=== PATIENT | female | born 1955 | race Caucasian/White ===

== ENCOUNTER 2021-02-27 13:31 | Inpatient (IN) ==
[2021-02-27] MEDS ORDERED: IOPAMIDOL 100 ML BOTTLE IV ONE ×2 (13:32→21:02)
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
[2021-02-27] MEDS ORDERED: 0.9 % SODIUM CHLORIDE 1,000 ML IV ONE ×2 (14:15→17:05)
[2021-02-27 14:45] LABS: Hematocrit 36.1 % (34.1-44.9); Hemoglobin 11.7 g/dL (11.2-15.7); Mean Cell Volume 92.3 fL (80.0-100.0); Mean Corpuscular HGB Conc 32.4 g/dL (31.0-36.0); Mean Platelet Volume 11.9 fL (7.4-10.4); Platelet Count 166 K/mcL (140-440); RBC 3.91 M/mcL (3.59-5.38); Red Cell Distribution Width 15.4 % (11.5-14.5); WBC 23.5 K/mcL (4.5-11.0)
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
[2021-02-27] MEDS ORDERED: HYDROCODONE/APAP 7.5/325MG TABLET PO ONE (15:00)
[2021-02-27] MEDS ORDERED: cefTRIAXone 1 GM VIAL IV ONE (15:01)
[2021-02-27 15:03] LABS: ALT/SGPT 25 U/L (<40); AST/SGOT 12 U/L (<32); Albumin 3.7 gm/dL (3.2-5.2); Albumin/Globulin Ratio 1.1 (1.0-2.3); Alkaline Phosphatase 207 U/L (39-117); Bilirubin,Total 1.1 mg/dL (0.1-1.0); Blood Urea Nitrogen 9 mg/dL (8-23); Calcium 9.3 mg/dL (8.6-10.4); Carbon Dioxide 19 mmol/L (22-30); Chloride 103 mmol/L (96-108); Globulin 3.3 gm/dL (2.2-3.7); Glomerular Filtration Rate 77; Glucose 227 mg/dL (70-105)
[2021-02-27] MEDS ORDERED: AZITHROMYCIN 500 MG in DEXTROSE 5% IN WATER 250 ML IV ONE (15:03)
[2021-02-27 15:40] LABS: Appearance,Urine CLEAR (Clear); Bilirubin,Urine Negative (Negative); Color,Urine YELLOW; Culture Indicated,Urine No; Glucose,Urine (UA) >=500 mg/dL (Negative); Ketones,Urine Negative (Negative); Leukocyte Esterase,Urine 75 /uL (Negative); Nitrate,Urine Negative (Negative); Protein,Urine Negative (Negative); Specific Gravity,Urine 1.017 (1.000-1.035); Urine Blood Negative (Negative); Urine RBC 1 /hpf (0-3); Urine Squamous Epithelial Cell 0 /hpf (0-4); Urine WBC 8 /hpf (0-4)
[2021-02-27 15:58] LABS: Anisocytosis 1+ (None Seen); Lymphocytes % 6 % (15-49); Monocytes % (Manual) 5 % (1-12); Platelet Estimate NORMAL (Normal); Polychromasia 1+ (None Seen); RBC Morphology ABNORMAL (Normal); Segmented Neutrophils % 89 % (38-78)
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
[2021-02-27] MEDS ORDERED: morphine 4 MG/ML VIAL IV PRN (21:02)
[2021-02-27] MEDS ORDERED: cefTRIAXone 1 GM in DEXTROSE 5% IN WATER 50 ML IV SCH (21:02)
[2021-02-27] MEDS ORDERED: DOCUSATE SODIUM 100 MG CAPSULE PO SCH (21:02)
[2021-02-27] MEDS ORDERED: DEXTROSE 31 GM ORAL.SUSP PO PRN (21:02)
[2021-02-27] MEDS ORDERED: LOVASTATIN 20 MG PO SCH (21:02)
[2021-02-27] MEDS ORDERED: ONDANSETRON 4 MG/2 ML VIAL IV PRN (21:02)
[2021-02-27] MEDS ORDERED: DEXTROSE 50% 50 ML VIAL IV PRN (21:02)
[2021-02-27] MEDS ORDERED: ACETAMINOPHEN 325 MG TABLET PO PRN (21:02)
[2021-02-27] MEDS ORDERED: HYDROcodone/APAP 10/325MG TABLET PO PRN (21:02)
[2021-02-27] MEDS ORDERED: IPRATROPIUM/ALBUTEROL 3 ML AMPUL.NEB NEB PRN (21:02)
[2021-02-27] MEDS: SENNOSIDES 1 TABLET PO SCH (21:37)
[2021-02-27] MEDS: DOCUSATE SODIUM 100 MG CAPSULE PO SCH (21:37)
[2021-02-27] MEDS: CYCLOBENZAPRINE 10 MG TABLET PO SCH (21:45)
[2021-02-27] MEDS: GABAPENTIN 300 MG CAPSULE PO SCH (21:46)
[2021-02-27] MEDS: ZOLPIDEM 5 MG TABLET PO SCH (21:46)
[2021-02-27] MEDS: SIMVASTATIN 10 MG TABLET PO SCH (21:46)
[2021-02-27] MEDS: HYDROcodone/APAP 10/325MG TABLET PO PRN (21:47)
[2021-02-27] MEDS: 0.9 % SODIUM CHLORIDE 1,000 ML IV SCH (21:50)
[2021-02-27] MEDS: 0.9 % SODIUM CHLORIDE 10 ML SYRINGE IV SCH (21:50)
[2021-02-27] MEDS: INSULIN LISPRO 1 UNIT/0.01 ML UNIT SQ SCH (21:50)
[2021-02-27 23:03] LABS: Estimated Average Glucose(eAG) 151 mg/dL; Hemoglobin A1C 6.9 % Hgb (4.0-6.0)
[2021-02-28] MEDS: 0.9 % SODIUM CHLORIDE 10 ML SYRINGE IV SCH ×3 (05:30→20:58)
[2021-02-28 06:40] LABS: Basophils # (Auto) 0.05 K/mcL (0.00-0.30); Basophils % (Auto) 0.3 % (0.0-2.0); Eosinophils # (Auto) 0.17 K/mcL (0.00-0.70); Eosinophils % (Auto) 1.1 % (0.0-7.0); Hematocrit 33.5 % (34.1-44.9); Hemoglobin 10.1 g/dL (11.2-15.7); Lymphocytes # (Auto) 0.74 K/mcL (1.50-4.80); Lymphocytes % (Auto) 4.9 % (15.5-49.0); Mean Cell Volume 97.7 fL (80.0-100.0); Mean Corpuscular HGB Conc 30.1 g/dL (31.0-36.0); Mean Platelet Volume 11.9 fL (7.4-10.4); Monocytes # (Auto) 0.78 K/mcL (0.10-0.90); Monocytes % (Auto) 5.1 % (1.0-12.0); Neutrophils % (Auto) 88.6 % (38.0-78.0); Platelet Count 147 K/mcL (140-440); RBC 3.43 M/mcL (3.59-5.38); WBC 15.2 K/mcL (4.5-11.0)
[2021-02-28 07:05] LABS: ALT/SGPT 17 U/L (<40); AST/SGOT 10 U/L (<32); Alkaline Phosphatase 224 U/L (39-117); Bilirubin,Total 0.6 mg/dL (0.1-1.0); Blood Urea Nitrogen 12 mg/dL (8-23); Calcium 8.3 mg/dL (8.6-10.4); Carbon Dioxide 19 mmol/L (22-30); Chloride 108 mmol/L (96-108); Globulin 3.1 gm/dL (2.2-3.7); Glomerular Filtration Rate 91; Glucose 152 mg/dL (70-105)
--- NOTE | 2021-02-28 07:17 | EKG ---
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
[2021-02-28] MEDS: INSULIN LISPRO 1 UNIT/0.01 ML UNIT SQ SCH ×4 (08:16→20:56)
[2021-02-28] MEDS ORDERED: METOPROLOL SUCCINATE 50 MG TAB.XL.24H PO SCH (09:00)
[2021-02-28] MEDS: HYDROcodone/APAP 10/325MG TABLET PO PRN ×2 (09:32→17:29)
[2021-02-28] MEDS: 0.9 % SODIUM CHLORIDE 1,000 ML IV SCH ×3 (09:35→18:39)
[2021-02-28] MEDS: CYCLOBENZAPRINE 10 MG TABLET PO SCH ×3 (09:36→20:54)
[2021-02-28] MEDS: DOCUSATE SODIUM 100 MG CAPSULE PO SCH ×2 (09:37→20:53)
[2021-02-28] MEDS: FUROSEMIDE 20 MG TABLET PO SCH (09:37)
[2021-02-28] MEDS: MELOXICAM 7.5 MG TABLET PO SCH (09:38)
[2021-02-28] MEDS: busPIRone 15 MG TABLET PO SCH (09:38)
[2021-02-28] MEDS: DULoxetine 30 MG CAPSULE PO SCH (09:39)
[2021-02-28] MEDS: GABAPENTIN 300 MG CAPSULE PO SCH ×3 (09:39→20:54)
[2021-02-28] MEDS: ENOXAPARIN 40 MG/0.4 ML SYRINGE SQ SCH (09:40)
[2021-02-28] MEDS: cefTRIAXone 1 GM VIAL IV SCH (10:15)
[2021-02-28] MEDS: AZITHROMYCIN 500 MG in DEXTROSE 5% IN WATER 250 ML IV SCH (10:15)
[2021-02-28] MEDS ORDERED: METOPROLOL SUCCINATE 50 MG TAB.XL.24H PO ONE (11:56)
[2021-02-28] MEDS ORDERED: METOPROLOL TARTRATE 5 MG/5 ML VIAL IV PRN (11:57)
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
[2021-02-28] MEDS: guaiFENesin/DEXTROMETHORPHAN ORAL SOL PO PRN (12:54)
[2021-02-28] MEDS: SENNOSIDES 1 TABLET PO SCH (20:53)
[2021-02-28] MEDS: SIMVASTATIN 10 MG TABLET PO SCH (20:55)
[2021-02-28] MEDS: ZOLPIDEM 5 MG TABLET PO SCH (20:55)
[2021-03-01] MEDS: 0.9 % SODIUM CHLORIDE 1,000 ML IV SCH (01:14)
[2021-03-01] MEDS: 0.9 % SODIUM CHLORIDE 10 ML SYRINGE IV SCH ×3 (04:03→20:45)
[2021-03-01 06:56] LABS: Basophils # (Auto) 0.06 K/mcL (0.00-0.30); Basophils % (Auto) 0.5 % (0.0-2.0); Eosinophils # (Auto) 0.22 K/mcL (0.00-0.70); Eosinophils % (Auto) 1.8 % (0.0-7.0); Hematocrit 32.2 % (34.1-44.9); Hemoglobin 9.5 g/dL (11.2-15.7); Lymphocytes # (Auto) 0.88 K/mcL (1.50-4.80); Lymphocytes % (Auto) 7.1 % (15.5-49.0); Mean Cell Volume 98.5 fL (80.0-100.0); Mean Corpuscular HGB Conc 29.5 g/dL (31.0-36.0); Mean Platelet Volume 11.8 fL (7.4-10.4); Monocytes % (Auto) 6.5 % (1.0-12.0); Neutrophils % (Auto) 84.1 % (38.0-78.0); Platelet Count 168 K/mcL (140-440); RBC 3.27 M/mcL (3.59-5.38); Red Cell Distribution Width 15.7 % (11.5-14.5); WBC 12.3 K/mcL (4.5-11.0)
[2021-03-01 07:16] LABS: ALT/SGPT 15 U/L (<40); AST/SGOT 14 U/L (<32); Albumin/Globulin Ratio 0.9 (1.0-2.3); Alkaline Phosphatase 176 U/L (39-117); Bilirubin,Total 0.3 mg/dL (0.1-1.0); Blood Urea Nitrogen 11 mg/dL (8-23); Calcium 8.4 mg/dL (8.6-10.4); Carbon Dioxide 19 mmol/L (22-30); Chloride 103 mmol/L (96-108); Globulin 3.3 gm/dL (2.2-3.7); Glomerular Filtration Rate 77; Glucose 161 mg/dL (70-105)
[2021-03-01] MEDS: INSULIN LISPRO 1 UNIT/0.01 ML UNIT SQ SCH ×4 (07:32→20:56)
[2021-03-01] MEDS: HYDROcodone/APAP 10/325MG TABLET PO PRN ×3 (07:37→18:45)
[2021-03-01] MEDS: GABAPENTIN 300 MG CAPSULE PO SCH ×3 (08:52→20:44)
[2021-03-01] MEDS: ENOXAPARIN 40 MG/0.4 ML SYRINGE SQ SCH (08:52)
[2021-03-01] MEDS: MELOXICAM 7.5 MG TABLET PO SCH (08:52)
[2021-03-01] MEDS: cefTRIAXone 1 GM VIAL IV SCH (08:52)
[2021-03-01] MEDS: CYCLOBENZAPRINE 10 MG TABLET PO SCH ×3 (08:53→20:44)
[2021-03-01] MEDS: FUROSEMIDE 20 MG TABLET PO SCH (08:53)
[2021-03-01] MEDS: busPIRone 15 MG TABLET PO SCH (08:53)
[2021-03-01] MEDS: DOCUSATE SODIUM 100 MG CAPSULE PO SCH ×2 (08:53→20:44)
[2021-03-01] MEDS: DULoxetine 30 MG CAPSULE PO SCH (08:53)
[2021-03-01] MEDS: METOPROLOL SUCCINATE 50 MG TAB.XL.24H PO SCH (08:53)
[2021-03-01] MEDS: AZITHROMYCIN 500 MG in DEXTROSE 5% IN WATER 250 ML IV SCH (09:56)
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
[2021-03-01] MEDS: guaiFENesin/DEXTROMETHORPHAN ORAL SOL PO PRN (14:17)
[2021-03-01] MEDS: SIMVASTATIN 10 MG TABLET PO SCH (20:44)
[2021-03-01] MEDS: ZOLPIDEM 5 MG TABLET PO SCH (20:44)
[2021-03-01] MEDS: SENNOSIDES 1 TABLET PO SCH (20:44)
[2021-03-02] MEDS: HYDROcodone/APAP 10/325MG TABLET PO PRN ×4 (01:00→18:56)
[2021-03-02] MEDS: 0.9 % SODIUM CHLORIDE 10 ML SYRINGE IV SCH ×3 (04:31→21:05)
[2021-03-02 06:58] LABS: Basophils # (Auto) 0.07 K/mcL (0.00-0.30); Basophils % (Auto) 0.8 % (0.0-2.0); Eosinophils # (Auto) 0.14 K/mcL (0.00-0.70); Eosinophils % (Auto) 1.6 % (0.0-7.0); Hematocrit 32.4 % (34.1-44.9); Hemoglobin 9.8 g/dL (11.2-15.7); Lymphocytes # (Auto) 1.14 K/mcL (1.50-4.80); Mean Cell Volume 97.3 fL (80.0-100.0); Mean Corpuscular HGB Conc 30.2 g/dL (31.0-36.0); Mean Platelet Volume 11.5 fL (7.4-10.4); Monocytes # (Auto) 0.76 K/mcL (0.10-0.90); Monocytes % (Auto) 8.6 % (1.0-12.0); Platelet Count 190 K/mcL (140-440); RBC 3.33 M/mcL (3.59-5.38); Red Cell Distribution Width 15.2 % (11.5-14.5); WBC 8.8 K/mcL (4.5-11.0)
[2021-03-02 07:36] LABS: ALT/SGPT 12 U/L (<40); AST/SGOT 12 U/L (<32); Albumin 3.1 gm/dL (3.2-5.2); Alkaline Phosphatase 139 U/L (39-117); Bilirubin,Total 0.2 mg/dL (0.1-1.0); Blood Urea Nitrogen 12 mg/dL (8-23); Carbon Dioxide 18 mmol/L (22-30); Chloride 106 mmol/L (96-108); Globulin 3.2 gm/dL (2.2-3.7); Glomerular Filtration Rate 91; Glucose 183 mg/dL (70-105)
[2021-03-02] MEDS: INSULIN LISPRO 1 UNIT/0.01 ML UNIT SQ SCH ×4 (07:40→21:03)
[2021-03-02] MEDS: GABAPENTIN 300 MG CAPSULE PO SCH ×3 (08:13→21:03)
[2021-03-02] MEDS: DOCUSATE SODIUM 100 MG CAPSULE PO SCH ×2 (08:13→21:05)
[2021-03-02] MEDS: DULoxetine 30 MG CAPSULE PO SCH (08:13)
[2021-03-02] MEDS: METOPROLOL SUCCINATE 50 MG TAB.XL.24H PO SCH (08:13)
[2021-03-02] MEDS: MELOXICAM 7.5 MG TABLET PO SCH (08:13)
[2021-03-02] MEDS: CYCLOBENZAPRINE 10 MG TABLET PO SCH ×3 (08:14→21:04)
[2021-03-02] MEDS: FUROSEMIDE 20 MG TABLET PO SCH (08:14)
[2021-03-02] MEDS: busPIRone 15 MG TABLET PO SCH (08:19)
[2021-03-02] MEDS: ENOXAPARIN 40 MG/0.4 ML SYRINGE SQ SCH (08:20)
[2021-03-02] MEDS: guaiFENesin/DEXTROMETHORPHAN ORAL SOL PO PRN (09:15)
[2021-03-02] MEDS: cefTRIAXone 1 GM VIAL IV SCH (09:24)
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
[2021-03-02] MEDS ORDERED: IBUPROFEN 600 MG TABLET PO PRN (12:19)
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
[2021-03-02] MEDS: SIMVASTATIN 10 MG TABLET PO SCH (21:03)
[2021-03-02] MEDS: ZOLPIDEM 5 MG TABLET PO SCH (21:04)
[2021-03-02] MEDS: SENNOSIDES 1 TABLET PO SCH (21:05)
[2021-03-03] MEDS: HYDROcodone/APAP 10/325MG TABLET PO PRN ×3 (01:21→15:14)
[2021-03-03 07:11] LABS: Basophils # (Auto) 0.08 K/mcL (0.00-0.30); Basophils % (Auto) 1.2 % (0.0-2.0); Eosinophils # (Auto) 0.17 K/mcL (0.00-0.70); Eosinophils % (Auto) 2.6 % (0.0-7.0); Hematocrit 33.9 % (34.1-44.9); Hemoglobin 10.4 g/dL (11.2-15.7); Lymphocytes # (Auto) 1.25 K/mcL (1.50-4.80); Lymphocytes % (Auto) 19.5 % (15.5-49.0); Mean Cell Volume 97.7 fL (80.0-100.0); Mean Corpuscular HGB Conc 30.7 g/dL (31.0-36.0); Mean Platelet Volume 10.9 fL (7.4-10.4); Monocytes # (Auto) 0.66 K/mcL (0.10-0.90); Monocytes % (Auto) 10.3 % (1.0-12.0); Neutrophils % (Auto) 66.4 % (38.0-78.0); Platelet Count 244 K/mcL (140-440); RBC 3.47 M/mcL (3.59-5.38); Red Cell Distribution Width 15.1 % (11.5-14.5); WBC 6.4 K/mcL (4.5-11.0)
[2021-03-03 07:18] LABS: ALT/SGPT 13 U/L (<40); AST/SGOT 15 U/L (<32); Albumin 3.4 gm/dL (3.2-5.2); Alkaline Phosphatase 129 U/L (39-117); Bilirubin,Total 0.2 mg/dL (0.1-1.0); Blood Urea Nitrogen 11 mg/dL (8-23); Calcium 9.8 mg/dL (8.6-10.4); Carbon Dioxide 23 mmol/L (22-30); Chloride 106 mmol/L (96-108); Globulin 3.3 gm/dL (2.2-3.7); Glomerular Filtration Rate 95; Glucose 138 mg/dL (70-105)
[2021-03-03] MEDS: INSULIN LISPRO 1 UNIT/0.01 ML UNIT SQ SCH ×2 (07:27→11:31)
[2021-03-03] MEDS: 0.9 % SODIUM CHLORIDE 10 ML SYRINGE IV SCH ×2 (07:27→14:19)
[2021-03-03] MEDS: GABAPENTIN 300 MG CAPSULE PO SCH ×2 (08:16→14:19)
[2021-03-03] MEDS: DULoxetine 30 MG CAPSULE PO SCH (08:16)
[2021-03-03] MEDS: METOPROLOL SUCCINATE 50 MG TAB.XL.24H PO SCH (08:17)
[2021-03-03] MEDS: ENOXAPARIN 40 MG/0.4 ML SYRINGE SQ SCH (08:17)
[2021-03-03] MEDS: MELOXICAM 7.5 MG TABLET PO SCH (08:17)
[2021-03-03] MEDS: DOCUSATE SODIUM 100 MG CAPSULE PO SCH (08:17)
[2021-03-03] MEDS: FUROSEMIDE 20 MG TABLET PO SCH (08:17)
[2021-03-03] MEDS: CYCLOBENZAPRINE 10 MG TABLET PO SCH ×2 (08:17→14:19)
[2021-03-03] MEDS: busPIRone 15 MG TABLET PO SCH (08:17)
[2021-03-03] MEDS: cefTRIAXone 1 GM VIAL IV SCH (08:26)
[2021-03-03] MEDS ORDERED: FLU VACC QS2021-22(6MOS UP)/PF 60 MCG/0.5 ML SYRINGE IM ONE (10:00)
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
== END 2021-03-03 15:35 | disposition home health service (06) | DRG 871 ==
LOC: ED 13:31 → MEDSUR 20:30
PROVIDERS: ADMIT Internal Medicine; ATTEND Internal Medicine

== ENCOUNTER 2021-06-18 06:14 | Inpatient (IN) ==
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
[2021-06-18] MEDS ORDERED: morphine 4 MG/ML VIAL IV PRN (06:55)
[2021-06-18 07:56] LABS: Basophils # (Auto) 0.08 K/mcL (0.00-0.30); Basophils % (Auto) 1.7 % (0.0-2.0); Eosinophils # (Auto) 0.07 K/mcL (0.00-0.70); Eosinophils % (Auto) 1.5 % (0.0-7.0); Hematocrit 39.3 % (34.1-44.9); Hemoglobin 12.1 g/dL (11.2-15.7); Lymphocytes # (Auto) 1.22 K/mcL (1.50-4.80); Lymphocytes % (Auto) 25.5 % (15.5-49.0); Mean Cell Volume 92.7 fL (80.0-100.0); Mean Corpuscular HGB Conc 30.8 g/dL (31.0-36.0); Mean Platelet Volume 11.8 fL (7.4-10.4); Monocytes # (Auto) 0.35 K/mcL (0.10-0.90); Monocytes % (Auto) 7.3 % (1.0-12.0); Platelet Count 219 K/mcL (140-440); RBC 4.24 M/mcL (3.59-5.38); WBC 4.8 K/mcL (4.5-11.0)
[2021-06-18 08:12] LABS: Blood Urea Nitrogen 20 mg/dL (8-23); Calcium 9.2 mg/dL (8.6-10.4); Carbon Dioxide 19 mmol/L (22-30); Chloride 102 mmol/L (96-108); Glomerular Filtration Rate 67; Glucose 146 mg/dL (70-105)
[2021-06-18] MEDS: ONDANSETRON 4 MG/2 ML VIAL IV PRN (08:41)
[2021-06-18] MEDS ORDERED: ceFAZolin 2 GM in DEXTROSE 5% IN WATER 50 ML IV SCH (10:30)
[2021-06-18] MEDS: HYDROmorphone 1 MG/ML SYRINGE IV PRN (11:34)
[2021-06-18] MEDS: INSULIN LISPRO 1 UNIT/0.01 ML UNIT SQ SCH ×3 (11:45→21:14)
[2021-06-18] MEDS: 0.9 % SODIUM CHLORIDE 10 ML SYRINGE IV SCH ×2 (15:04→21:07)
[2021-06-18] MEDS: PREGABALIN 150 MG CAPSULE PO SCH ×2 (15:04→22:27)
[2021-06-18] MEDS: CYCLOBENZAPRINE 10 MG TABLET PO SCH ×2 (15:04→21:04)
--- NOTE | 2021-06-18 15:17 | XRay Report ---
CLINICAL INFORMATION: Trauma COMPARISON: Postoperative films-03/29/2020 FINDINGS: Total knee prosthesis remains anatomically aligned without loosening or infection. A mildly comminuted oblique fracture of the distal femoral metaphysis is appreciated. The distal fragment is displaced one half shaft width in a posterior direction. There is also approximately 90 degrees of posterior angulation by the fracture fragment. Moderate soft tissue swelling noted. IMPRESSION: Oblique mildly comminuted displaced and markedly angulated fracture of the distal femoral metaphysis. Total knee prosthesis is unremarkable Interpreted and Authenticated by: Sarmad Lovell 06/18/21
--- NOTE | 2021-06-18 15:41 | XRay Report ---
CLINICAL INFORMATION: Trauma COMPARISON: 01/10/2021 FINDINGS: Sacroiliac and hip joints are normal in width and alignment without arthritic change. There is no fracture or osseous abnormality. Heterotopic ossification is seen in the soft tissues adjacent left ischial tuberosity as before. Soft tissues are unremarkable. IMPRESSION: No fracture or other significant abnormality. Stable. Interpreted and Authenticated by: Sarmad Lovell 06/18/21
[2021-06-18] MEDS: oxyCODONE/APAP 5/325MG TABLET PO PRN ×2 (17:29→22:23)
[2021-06-18] MEDS: busPIRone 15 MG TABLET PO SCH (21:04)
[2021-06-18] MEDS: traZODone HCL 50 MG TABLET PO SCH (21:04)
[2021-06-18] MEDS: SIMVASTATIN 10 MG TABLET PO SCH (21:04)
[2021-06-18] MEDS: MUPIROCIN OINT 2% 22GM NARES SCH (21:14)
[2021-06-19] MEDS: HYDROmorphone 1 MG/ML SYRINGE IV PRN (04:26)
[2021-06-19] MEDS: 0.9 % SODIUM CHLORIDE 10 ML SYRINGE IV SCH ×3 (04:27→20:18)
[2021-06-19] MEDS ORDERED: ceFAZolin 2 GM in DEXTROSE 5% IN WATER 50 ML IV SCH (06:00)
[2021-06-19] MEDS: PREGABALIN 150 MG CAPSULE PO SCH ×3 (06:38→20:16)
[2021-06-19] MEDS: oxyCODONE/APAP 5/325MG TABLET PO PRN ×3 (06:42→20:16)
[2021-06-19] MEDS ORDERED: IPRATROPIUM/ALBUTEROL 3 ML AMPUL.NEB NEB PRN ×3 (07:30→16:01)
--- NOTE | 2021-06-19 07:41 | EKG ---
[facility] Test Date: 2021-06-18 Pat Name: Anna Marie Montoya Department: ED Room: Gender: Female Expense Analyst: : 1955 Requested By: Jadon Watts Order Number: [id number] Reading MD: Evans Hughes Measurements Intervals [place] Rate: 91 P: 0 LA: 275 QRS: -13 QRSD: 107 T: -7 QT: 383 QTc: 472 Interpretive Statements Sinus rhythm Prolonged LA interval Electronically Signed On 06-19-2021 7:41:31 PST by Evans Hughes /[employer]/M0/[id number]/ecg/[id number].pdf
[2021-06-19] MEDS: CYCLOBENZAPRINE 10 MG TABLET PO SCH ×3 (08:03→20:15)
[2021-06-19] MEDS: MUPIROCIN OINT 2% 22GM NARES SCH ×2 (08:03→20:18)
[2021-06-19] MEDS: DULoxetine 30 MG CAPSULE PO SCH (08:03)
[2021-06-19] MEDS: INSULIN LISPRO 1 UNIT/0.01 ML UNIT SQ SCH ×4 (08:03→20:24)
[2021-06-19] MEDS: METOPROLOL SUCCINATE 50 MG TAB.XL.24H PO SCH (08:03)
[2021-06-19] MEDS: busPIRone 15 MG TABLET PO SCH ×2 (08:03→20:15)
[2021-06-19 08:33] LABS: Hemoglobin A1C 7.1 % Hgb (4.0-6.0)
[2021-06-19] MEDS ORDERED: amLODIPine 10 MG TABLET PO SCH (09:00)
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
[2021-06-19] MEDS ORDERED: PNEUMOCOCCAL 23-VAL P-SAC VAC 0.5 ML SYRINGE IM ONE (10:00)
--- NOTE | 2021-06-19 12:54 | XRay Report ---
HISTORY: Hypoxia FINDINGS: The lungs are clear and normally expanded. The heart size and pulmonary vasculature are normal. There is no pleural effusion. Aorta is mildly tortuous. Patient has an old healed fracture and the proximal right humerus. Comparison with the prior exam from 02/27/21 shows resolution of previously seen infiltrate in the right lung. IMPRESSION: Normal exam Interpreted and Authenticated by: Tanvir Bain 06/19/21
[2021-06-19] MEDS ORDERED: IOPAMIDOL 100 ML BOTTLE IV ONE (15:11)
--- NOTE | 2021-06-19 15:34 | Cat Scan Report ---
History: Fell, acute hypoxia, evaluate for pulmonary emboli TECHNIQUE: The chest was imaged following injection of intravenous nonionic contrast. Sagittal, coronal and MIPS images were created. The radiation exposure was limited using dose reduction technology. FINDINGS: The pulmonary arteries are normal without evidence of emboli. Aorta is normal in caliber and there is minimal atherosclerotic disease. The heart is normal in size and contour. Small amount calcified plaque is present in the left anterior descending coronary. No pneumothorax, pleural effusion or pericardial effusion are present. There are acute fractures posterolaterally in the right seventh through 10th ribs. There are few old healed fractures in the left lower thorax. Lung volumes are small. There is greater elevation of the right diaphragm the left. No subdiaphragmatic fluid collection or free air present. There are bands of atelectasis in both lower lobes, right greater than left. No evidence of lung mass or congestive heart failure. The mediastinum and hilar normal. There is an old healed fracture in the right proximal humerus. There is a metal plate and screws at this site. The gallbladder has been removed. There is marked dilatation of the intra and extrahepatic bile ducts. Common hepatic duct measures up to 1.9 cm. The common bile duct tapers as it passes through the pancreas to the ampulla. Above the ampulla measures 8 mm. No stone is seen within the duct. The bile ducts have increased in caliber since the prior CT done on 02/27/21. There are couple calcifications in and adjacent to the body and tail of the pancreas. There is no evidence of acute pancreatitis. There are postsurgical changes following prior gastric reduction surgery. Spine has a mild kyphoscoliotic curvature. There are old healed mild wedge compression fractures at T3 and T8. Impression: Acute rib fractures posterolaterally in the right mid and lower thorax. Mild atelectasis in both lung bases No pulmonary emboli Increased dilatation of the intra and extrahepatic bile ducts since 02/27/21. If the bilirubin level and liver enzymes are elevated, additional workup is suggested. Interpreted and Authenticated by: Tanvir Bain 06/19/21
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
[2021-06-19] MEDS ORDERED: ALBUTEROL SULFATE 2.5 MG/3 ML NEBULIZER NEB PRN (16:01)
[2021-06-19 16:15] LABS: Basophils # (Auto) 0.03 K/mcL (0.00-0.30); Basophils % (Auto) 0.4 % (0.0-2.0); Eosinophils # (Auto) 0 K/mcL (0.00-0.70); Eosinophils % (Auto) 0 % (0.0-7.0); Hematocrit 27.8 % (34.1-44.9); Hemoglobin 8.5 g/dL (11.2-15.7); Lymphocytes % (Auto) 10.8 % (15.5-49.0); Mean Cell Volume 94.2 fL (80.0-100.0); Mean Corpuscular HGB Conc 30.6 g/dL (31.0-36.0); Mean Platelet Volume 11.1 fL (7.4-10.4); Monocytes # (Auto) 1.07 K/mcL (0.10-0.90); Monocytes % (Auto) 12.8 % (1.0-12.0); Platelet Count 183 K/mcL (140-440); RBC 2.95 M/mcL (3.59-5.38); WBC 8.4 K/mcL (4.5-11.0)
[2021-06-19 16:52] LABS: ALT/SGPT 8 U/L (<40); AST/SGOT 17 U/L (<32); Albumin 3.5 gm/dL (3.2-5.2); Albumin/Globulin Ratio 1.4 (1.0-2.3); Alkaline Phosphatase 74 U/L (39-117); Bilirubin,Total 0.6 mg/dL (0.1-1.0); Blood Urea Nitrogen 14 mg/dL (8-23); Calcium 8.2 mg/dL (8.6-10.4); Carbon Dioxide 21 mmol/L (22-30); Chloride 97 mmol/L (96-108); Globulin 2.5 gm/dL (2.2-3.7); Glomerular Filtration Rate 67; Glucose 173 mg/dL (70-105)
[2021-06-19] MEDS: SIMVASTATIN 10 MG TABLET PO SCH (20:15)
[2021-06-19] MEDS: traZODone HCL 50 MG TABLET PO SCH (20:16)
[2021-06-19] MEDS: ONDANSETRON 4 MG/2 ML VIAL IV PRN (23:48)
[2021-06-20] MEDS: oxyCODONE/APAP 5/325MG TABLET PO PRN ×4 (05:16→20:12)
[2021-06-20] MEDS: PREGABALIN 150 MG CAPSULE PO SCH ×3 (05:51→20:12)
[2021-06-20] MEDS: 0.9 % SODIUM CHLORIDE 10 ML SYRINGE IV SCH ×3 (05:51→20:13)
[2021-06-20 07:14] LABS: Blood Urea Nitrogen 15 mg/dL (8-23); Calcium 8.4 mg/dL (8.6-10.4); Carbon Dioxide 20 mmol/L (22-30); Chloride 100 mmol/L (96-108); Glomerular Filtration Rate 67; Glucose 184 mg/dL (70-105)
[2021-06-20] MEDS: INSULIN LISPRO 1 UNIT/0.01 ML UNIT SQ SCH ×4 (07:26→20:13)
[2021-06-20] MEDS: HYDROmorphone 1 MG/ML SYRINGE IV PRN (07:47)
[2021-06-20] MEDS: DULoxetine 30 MG CAPSULE PO SCH (08:45)
[2021-06-20] MEDS: MUPIROCIN OINT 2% 22GM NARES SCH ×2 (08:45→20:12)
[2021-06-20] MEDS: METOPROLOL SUCCINATE 50 MG TAB.XL.24H PO SCH (08:45)
[2021-06-20] MEDS: busPIRone 15 MG TABLET PO SCH ×2 (08:45→20:12)
[2021-06-20] MEDS: CYCLOBENZAPRINE 10 MG TABLET PO SCH ×3 (08:45→20:12)
[2021-06-20 09:00] LABS: proBNP 213.6 pg/mL (<125.0)
[2021-06-20 09:04] LABS: Thyroid Stimulating Hormone 2.57 uIU/mL (0.27-5.01)
[2021-06-20] MEDS ORDERED: PNEUMOCOCCAL 23-VAL P-SAC VAC 0.5 ML SYRINGE IM ONE (10:00)
[2021-06-20] MEDS ORDERED: ADENOSINE 3 MG/ML VIAL IV ONE (10:24)
[2021-06-20] MEDS ORDERED: 0.9 % SODIUM CHLORIDE 250 ML IV SCH (10:30)
--- NOTE | 2021-06-20 15:38 | Internal Med Progress Note ---
SUBJECTIVE Subjective Patient information: Note initiated : 06/20/21 at 3:28 pm Service Date, if different from initiated Date: [] Patient: Anna Marie Montoya 65 y/o F admitted on 06/18/21 for left knee pain after fall. Chief Complaint: [] Interval history: History of present illness: Anna Marie Montoya is a 65-year-old female with a history of hypertension, type 2 diabetes mellitus, vertebral compression fractures, migraine headaches who was admitted on 06/19/2021 for a distal femur fracture that occurred during a mechanical fall at home. Soon after admission, the patient was found to be tachycardic and hypoxic. Hospital medicine was consulted for further evaluation. The patient was hemodynamically stable, heart rate about 120, the patient's respiratory rate is in the low 20s, she is requiring 4 L/min nasal cannula oxygen. The patient has been afebrile. CBC from 06/18/2021 did not show any leukocytosis, hemoglobin was normal, normal platelets. Renal function was normal, electrolytes were normal, the patient had a nonanion gap metabolic acidosis, hemoglobin A1c was 7.1. On exam, the patient has bilateral wheezes, no crackles appreciated. Showed junctional tachycardia. Portable 1 view chest x-ray showed clear lungs bilaterally. 06/21 Constitutional Vitals: Vital Signs Temp Pulse Resp BP Pulse Ox 97.1 F 113 H 16 131/88 94 06/20/21 14:30 06/20/21 14:30 06/20/21 14:30 06/20/21 14:30 06/20/21 14:30 Period Temp Pulse Resp BP Sys/Harrell Pulse Ox Last 24 Hr 97.1 F-99.4 F 112-119 16-18 101-131/62-88 90-94 Intake and Output 06/20/21 06/20/21 06/20/21 05:59 13:59 21:59 Intake Total 800 240 Output Total 400 Balance 400 240 Weight 101.65 kg Patient Weight 06/21/21 05:59 Weight 101.65 kg Intake & Output: Intake & Output 06/20/21 06/20/21 06/20/21 05:59 13:59 21:59 Intake Total 800 240 Output Total 400 Balance 400 240 Weight 101.65 kg Intake: Oral 800 240 Output: Void Amount 400 Other: Meal Breakfast Percent of Meal Consumed 100% Urine Appearance Cloudy Urine Color Dark Yellow Urine Odor Strong Exam: General: Alert, Awake, No acute Distress, obese Eyes/N/T: EOMI, Head/Neck: neck supple, CV: , No murmurs, Pulm: Clear b/l, no wheezing/rhonchi/rales Abd: soft, nontender, +BS x4 Ext: no clubbing/cyanosis/edema Neuro: Alert, no focal deficits, moves all extremities, Skin: warm/dry OBJ DATA Labs CBC & Chem 7: 06/20/21 05:09 06/20/21 05:09 Labs: Abnormal Lab Results 06/20/21 06/20/21 06/20/21 07:20 05:09 05:09 RBC Hgb 8.4 L Hct MCHC RDW MPV Lymph % (Auto) [place] % (Auto) Lymph # (Auto) [place] # (Auto) Sodium 132 L Carbon Dioxide 20 L Glucose 184 H Hemoglobin A1c Calcium 8.4 L NT-Pro-B Natriuret Pep 213.6 H 06/19/21 06/19/21 06/19/21 20:56 15:49 15:48 RBC 2.95 L Hgb 8.6 L 8.5 L Hct 27.8 L MCHC 30.6 L RDW 17.0 H MPV 11.1 H Lymph % (Auto) 10.8 L [place] % (Auto) 12.8 H Lymph # (Auto) 0.90 L [place] # (Auto) 1.07 H Sodium 130 L Carbon Dioxide 21 L Glucose 173 H Hemoglobin A1c Calcium 8.2 L NT-Pro-B Natriuret Pep 06/18/21 06/18/21 06/18/21 07:08 07:08 07:08 RBC Hgb Hct MCHC 30.8 L RDW 17.0 H MPV 11.8 H Lymph % (Auto) [place] % (Auto) Lymph # (Auto) 1.22 L [place] # (Auto) Sodium Carbon Dioxide 19 L Glucose 146 H Hemoglobin A1c 7.1 H Calcium NT-Pro-B Natriuret Pep Meds: Medications Albuterol Sulfate (Albuterol Sulfate 2.5 Mg/3 Ml Nebulizer) 2.5 mg NEB Q2HP PRN PRN Reason: Shortness Of Breath Albuterol/Ipratropium (Ipratropium/Albuterol 3 Ml Ampul.Neb) 3 ml NEB Q6HP PRN PRN Reason: Shortness Of Breath Buspirone HCl (Buspirone 15 Mg Tablet) 15 mg PO BID [facility] Last Admin: 06/20/21 08:45 Dose: 15 mg Documented by: Cyclobenzaprine HCl (Cyclobenzaprine 10 Mg Tablet) 10 mg PO TID [facility] Last Admin: 06/20/21 14:34 Dose: 10 mg Documented by: Diagnostic Test (Pha) (Accu-Chek 1 Each Strip) 1 each FS [facility] Last Admin: 06/20/21 11:53 Dose: 1 each Documented by: Duloxetine HCl (Duloxetine 30 Mg Capsule) 90 mg PO QDAY [facility] Last Admin: 06/20/21 08:45 Dose: 90 mg Documented by: Hydromorphone HCl (Hydromorphone 1 Mg/Ml Syringe) 0 mg IV Q2HP PRN; Protocol PRN Reason: Per Pain Protocol Last Admin: 06/20/21 07:47 Dose: 1 mg Documented by: Sodium Chloride (Sodium Chloride 0.9%) 250 mls @ 20 mls/hr IV .[id number] [facility] Stop: 06/20/21 22:59 Last Admin: 06/20/21 15:26 Dose: 20 mls/hr Documented by: Insulin Human Lispro (Insulin Lispro 1 Unit/0.01 Ml Unit) 0 unit SQ [facility]; Protocol Last Admin: 06/20/21 11:53 Dose: 3 unit Documented by: Metoprolol Succinate (Metoprolol Succinate 50 Mg Tab.Xl.24h) 50 mg PO QDAY [facility] Last Admin: 06/20/21 08:45 Dose: 50 mg Documented by: Mupirocin (Mupirocin Oint 2% 22gm) 1 dose NARES BID [facility] Last Admin: 06/20/21 08:45 Dose: 1 dose Documented by: Ondansetron HCl (Ondansetron 4 Mg/2 Ml Vial) 4 mg IV Q6HP PRN PRN Reason: Nausea And Vomiting Last Admin: 06/19/21 23:48 Dose: 4 mg Documented by: Oxycodone/Acetaminophen (Oxycodone/Apap 5/325mg Tablet) 1 - 2 tab PO Q4-6HP PRN; Protocol PRN Reason: Per Pain Protocol Last Admin: 06/20/21 14:41 Dose: 1 tab Documented by: Empagliflozin [ Jardiance] 10 Mg Tablet 1 dose PO DAILY [facility] Last Admin: 06/20/21 08:46 Dose: Not Given Documented by: Pregabalin (Pregabalin 150 Mg Capsule) 150 mg PO Q8H [facility] Last Admin: 06/20/21 15:26 Dose: 150 mg Documented by: Simvastatin (Simvastatin 10 Mg Tablet) 10 mg PO [facility] Last Admin: 06/19/21 20:15 Dose: 10 mg Documented by: Sodium Chloride (0.9 % Sodium Chloride 10 Ml Syringe) 10 ml IV Q8 [facility] Last Admin: 06/20/21 14:35 Dose: 10 ml Documented by: Trazodone HCl (Trazodone Hcl 50 Mg Tablet) 50 mg PO [facility] Last Admin: 06/19/21 20:16 Dose: 50 mg Documented by: A/P Narrative A/P Narrative: A: #Hypoxia, possibly acute on chronic: 2/2 Atelectasis and possibly pain medication -CTA no PE or infiltrate, b/l Atelectasis noted #Junctional tachycardia: #HTN: on norvasc/BB #DM 2: #Depression/anxiety: #h/o Vertebral Comp Fx's: #Acute Rib Fx's Right side: #Left distal femur fracture: Plan: -wean o2 as able -IS, prn nebs -Consider ABG. 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 -Continue home psych/Flexeril/Lyrica/simimvastatin. -SSI, Holding home Jardiance. -ppx: SCD until surgery Time Spent With Patient Time: Total time spent is greater than 50% in coordination of care (as documented) at patient's floor/unit and/or counseling patient: QUALITY VTE Deep Vein Thrombosis/Pulmonary Embolism Present on Admission: No
[2021-06-20] MEDS ORDERED: METOPROLOL TARTRATE 5 MG/5 ML VIAL IV PRN (15:46)
[2021-06-20] MEDS ORDERED: IPRATROPIUM/ALBUTEROL 3 ML AMPUL.NEB NEB PRN (15:46)
[2021-06-20] MEDS ORDERED: METOPROLOL TARTRATE 5 MG/5 ML VIAL IV ONE (15:46)
--- NOTE | 2021-06-20 19:11 | Internal Med Progress Note ---
SUBJECTIVE Subjective Patient information: Note initiated : 06/20/21 at 7:10 pm Service Date, if different from initiated Date: [] Patient: Anna Marie Montoya 65 y/o F admitted on 06/18/21 for left knee pain after fall. Chief Complaint: [] Interval history: Anna Marie Montoya is a 65-year-old female with a history of hypertension, type 2 diabetes mellitus, vertebral compression fractures, migraine headaches who was admitted on 06/19/2021 for a distal femur fracture that occurred during a mechanical fall at home. Soon after admission, the patient was found to be tachycardic and hypoxic. Hospital medicine was consulted for further evaluation. The patient was hemodynamically stable, heart rate about 120, the patient's respiratory rate is in the low 20s, she is requiring 4 L/min nasal cannula oxygen. The patient has been afebrile. CBC from 06/18/2021 did not show any leukocytosis, hemoglobin was normal, normal platelets. Renal function was normal, electrolytes were normal, the patient had a nonanion gap metabolic acidosis, hemoglobin A1c was 7.1. On exam, the patient has bilateral wheezes, no crackles appreciated. Showed junctional tachycardia. Portable 1 view chest x-ray showed clear lungs bilaterally. 06/20 CTA chest yesterday was negative for PE, positive for acute rib fractures. Improved oxygen requirement today with bronchodilators, the patient is much more comfortable. EKG showed persistent junctional tachycardia. Discussed surgery with orthopedic surgery, the plan is to postpone surgery today. One unit RBC given as the patient will lose blood during surgery and hemoglobin in the 8's. Physical exam Head: Atraumatic, normal inspection. Eyes: normal appearance, no scleral icterus. Neck: full ROM Respiratory: Respiratory rate in the 20s, bilateral wheezing. Cardiovascular: Regular tachycardia, S1, S2. GI/Abdominal: soft, nontender, no guarding. Extremities: Left lower extremity in legimmobilizer. Neurological: CN II-XII intact, intact motor, intact sensation. Psychiatric: Moderately anxious. Skin: warm, normal color Constitutional Vitals: Vital Signs Temp Pulse Resp BP Pulse Ox 98.5 F 99 H 18 87/62 94 06/20/21 17:00 06/20/21 17:00 06/20/21 17:00 06/20/21 17:00 06/20/21 17:00 Period Temp Pulse Resp BP Sys/Harrell Pulse Ox Last 24 Hr 97.1 F-98.5 F 99-119 16-18 87-131/62-88 91-94 Intake and Output 06/20/21 06/20/21 06/20/21 05:59 13:59 21:59 Intake Total 496 717 9493 Output Total 400 900 Balance 400 240 525 Weight 101.65 kg Patient Weight 06/21/21 05:59 Weight 101.65 kg Intake & Output: Intake & Output 06/20/21 06/20/21 06/20/21 05:59 13:59 21:59 Intake Total 623 905 9141 Output Total 400 900 Balance 400 240 525 Weight 101.65 kg Intake: Oral 918 123 9215 Blood Product 305 Output: Void Amount 400 900 Other: Meal Breakfast Dinner Percent of Meal Consumed 100% 75% Feeding Ability Independent Urine Appearance Cloudy Urine Color Dark Yellow Urine Odor Strong OBJ DATA Labs CBC & Chem 7: 06/20/21 05:09 06/20/21 05:09 Labs: Abnormal Lab Results 06/20/21 06/20/21 06/20/21 07:20 05:09 05:09 RBC Hgb 8.4 L Hct MCHC RDW MPV Lymph % (Auto) [place] % (Auto) Lymph # (Auto) [place] # (Auto) Sodium 132 L Carbon Dioxide 20 L Glucose 184 H Hemoglobin A1c Calcium 8.4 L NT-Pro-B Natriuret Pep 213.6 H 06/19/21 06/19/21 06/19/21 20:56 15:49 15:48 RBC 2.95 L Hgb 8.6 L 8.5 L Hct 27.8 L MCHC 30.6 L RDW 17.0 H MPV 11.1 H Lymph % (Auto) 10.8 L [place] % (Auto) 12.8 H Lymph # (Auto) 0.90 L [place] # (Auto) 1.07 H Sodium 130 L Carbon Dioxide 21 L Glucose 173 H Hemoglobin A1c Calcium 8.2 L NT-Pro-B Natriuret Pep 06/18/21 06/18/21 06/18/21 07:08 07:08 07:08 RBC Hgb Hct MCHC 30.8 L RDW 17.0 H MPV 11.8 H Lymph % (Auto) [place] % (Auto) Lymph # (Auto) 1.22 L [place] # (Auto) Sodium Carbon Dioxide 19 L Glucose 146 H Hemoglobin A1c 7.1 H Calcium NT-Pro-B Natriuret Pep Meds: Medications Albuterol Sulfate (Albuterol Sulfate 2.5 Mg/3 Ml Nebulizer) 2.5 mg NEB Q2HP PRN PRN Reason: Shortness Of Breath Albuterol/Ipratropium (Ipratropium/Albuterol 3 Ml Ampul.Neb) 3 ml NEB Q4HP PRN PRN Reason: Shortness Of Breath Buspirone HCl (Buspirone 15 Mg Tablet) 15 mg PO BID [facility] Last Admin: 06/20/21 08:45 Dose: 15 mg Documented by: Cyclobenzaprine HCl (Cyclobenzaprine 10 Mg Tablet) 10 mg PO TID [facility] Last Admin: 06/20/21 14:34 Dose: 10 mg Documented by: Diagnostic Test (Pha) (Accu-Chek 1 Each Strip) 1 each FS [facility] Last Admin: 06/20/21 17:13 Dose: 1 each Documented by: Duloxetine HCl (Duloxetine 30 Mg Capsule) 90 mg PO QDAY [facility] Last Admin: 06/20/21 08:45 Dose: 90 mg Documented by: Hydromorphone HCl (Hydromorphone 1 Mg/Ml Syringe) 0 mg IV Q2HP PRN; Protocol PRN Reason: Per Pain Protocol Last Admin: 06/20/21 07:47 Dose: 1 mg Documented by: Insulin Human Lispro (Insulin Lispro 1 Unit/0.01 Ml Unit) 0 unit SQ [facility]; Protocol Last Admin: 06/20/21 17:13 Dose: 3 unit Documented by: Metoprolol Succinate (Metoprolol Succinate 50 Mg Tab.Xl.24h) 50 mg PO QDAY [facility] Last Admin: 06/20/21 08:45 Dose: 50 mg Documented by: Metoprolol Tartrate (Metoprolol Tartrate 5 Mg/5 Ml Vial) 5 mg IV Q2HP PRN PRN Reason: Tachyarrhythmias HR>110 Mupirocin (Mupirocin Oint 2% 22gm) 1 dose NARES BID [facility] Last Admin: 06/20/21 08:45 Dose: 1 dose Documented by: Ondansetron HCl (Ondansetron 4 Mg/2 Ml Vial) 4 mg IV Q6HP PRN PRN Reason: Nausea And Vomiting Last Admin: 06/19/21 23:48 Dose: 4 mg Documented by: Oxycodone/Acetaminophen (Oxycodone/Apap 5/325mg Tablet) 1 - 2 tab PO Q4-6HP PRN; Protocol PRN Reason: Per Pain Protocol Last Admin: 06/20/21 14:41 Dose: 1 tab Documented by: Empagliflozin [ Jardiance] 10 Mg Tablet 1 dose PO DAILY [facility] Last Admin: 06/20/21 08:46 Dose: Not Given Documented by: Pregabalin (Pregabalin 150 Mg Capsule) 150 mg PO Q8H [facility] Last Admin: 06/20/21 15:26 Dose: 150 mg Documented by: Simvastatin (Simvastatin 10 Mg Tablet) 10 mg PO [facility] Last Admin: 06/19/21 20:15 Dose: 10 mg Documented by: Sodium Chloride (0.9 % Sodium Chloride 10 Ml Syringe) 10 ml IV Q8 [facility] Last Admin: 06/20/21 14:35 Dose: 10 ml Documented by: Trazodone HCl (Trazodone Hcl 50 Mg Tablet) 50 mg PO [facility] Last Admin: 06/19/21 20:16 Dose: 50 mg Documented by: A/P Narrative A/P Narrative: Assessment: 65-year-old female with a history of hypertension, type 2 diabetes mellitus, vertebral compression fractures, migraine headaches who was admitted on 06/19/2021 for a distal femur fracture that occurred during a mechanical fall at home. Soon after admission the patient developed tachycardia and hypoxia for which hospital medicine was consulted. Review of the patient's past medical history suggest that the patient has had a hypoxia in the past however the patient denies recent oxygen requirement. #Hypoxia, possibly acute on chronic #Junctional tachycardia #Anemia #Acute rib fractures #Essential hypertension #Type 2 diabetes mellitus #Left distal femur fracture Plan -Continue scheduled duo nebs and as needed albuterol nebs. -Oxygen supplementation, wean as able. -Continue home BuSpar own, Flexeril, duloxetine, Toprol, Lyrica, simvastatin. -Holding home aspirin. -Correction insulin SSI-low. Holding home Jardiance. 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 -Diet per surgery. -DVT ppx: per surgery Time Spent With Patient Time: Total time spent is greater than 50% in coordination of care (as documented) at patient's floor/unit and/or counseling patient: QUALITY VTE Deep Vein Thrombosis/Pulmonary Embolism Present on Admission: No
[2021-06-20] MEDS: ONDANSETRON 4 MG/2 ML VIAL IV PRN (19:18)
[2021-06-20] MEDS: traZODone HCL 50 MG TABLET PO SCH (20:12)
[2021-06-20] MEDS: SIMVASTATIN 10 MG TABLET PO SCH (20:12)
[2021-06-21] MEDS: oxyCODONE/APAP 5/325MG TABLET PO PRN (05:20)
[2021-06-21] MEDS: PREGABALIN 150 MG CAPSULE PO SCH ×3 (05:20→22:35)
[2021-06-21] MEDS: 0.9 % SODIUM CHLORIDE 10 ML SYRINGE IV SCH ×5 (05:21→22:43)
[2021-06-21] MEDS: INSULIN LISPRO 1 UNIT/0.01 ML UNIT SQ SCH ×4 (07:32→22:34)
[2021-06-21] MEDS: CYCLOBENZAPRINE 10 MG TABLET PO SCH ×3 (08:36→22:35)
[2021-06-21] MEDS: METOPROLOL SUCCINATE 50 MG TAB.XL.24H PO SCH (08:36)
[2021-06-21] MEDS: DULoxetine 30 MG CAPSULE PO SCH (08:36)
[2021-06-21] MEDS: busPIRone 15 MG TABLET PO SCH ×2 (08:36→22:35)
[2021-06-21] MEDS: MUPIROCIN OINT 2% 22GM NARES SCH ×2 (08:36→22:35)
--- NOTE | 2021-06-21 08:45 | Internal Med Progress Note ---
SUBJECTIVE Subjective Patient information: Note initiated : 06/21/21 at 8:43 am Service Date, if different from initiated Date: [] Patient: Anna Marie Montoya 65 y/o F admitted on 06/18/21 for left knee pain after fall. Chief Complaint: [] Interval history: History of present illness: Anna Marie Montoya is a 65-year-old female with a history of hypertension, type 2 diabetes mellitus, vertebral compression fractures, migraine headaches who was admitted on 06/19/2021 for a distal femur fracture that occurred during a mechanical fall at home. Soon after admission, the patient was found to be tachycardic and hypoxic. Hospital medicine was consulted for further evaluation. The patient was hemodynamically stable, heart rate about 120, the patient's respiratory rate is in the low 20s, she is requiring 4 L/min nasal cannula oxygen. The patient has been afebrile. CBC from 06/18/2021 did not show any leukocytosis, hemoglobin was normal, normal platelets. Renal function was normal, electrolytes were normal, the patient had a nonanion gap metabolic acidosis, hemoglobin A1c was 7.1. On exam, the patient has bilateral wheezes, no crackles appreciated. Showed junctional tachycardia. Portable 1 view chest x-ray showed clear lungs bilaterally. 06/21 No overnight event or new complaints. Patient was on room air 91% when I saw her. Heart rate around 100. No coughing or shortness of breath. Review of Systems: denies headache/fever/chills/nausea/vomiting/chest or abdominal pain/diarrhea. Otherwise see above. Constitutional Vitals: Vital Signs Temp Pulse Resp BP Pulse Ox 99.2 F H 105 H 20 122/65 94 06/21/21 07:36 06/21/21 07:36 06/21/21 07:36 06/21/21 07:36 06/21/21 07:36 Period Temp Pulse Resp BP Sys/Harrell Pulse Ox Last 24 Hr 97.1 F-99.2 F 97-113 12-20 87-145/62-88 93-94 Intake and Output 06/20/21 06/21/21 06/21/21 21:59 05:59 13:59 Intake Total 2248 100 Output Total 900 725 Balance 1348 -625 Weight 102.421 kg Intake & Output: Intake & Output 0306/21/21 06/21/21 21:59 05:59 13:59 Intake Total 2248 100 Output Total 900 725 Balance 1348 -625 Weight 102.421 kg Intake: IV 73 Sodium Chloride 0.9% 250 ml @ 73 20 mls/hr IV .[id number] [facility] Rx#: [id number] Oral 1870 100 Blood Product 305 Output: Void Amount 900 725 Other: Meal Dinner Percent of Meal Consumed 75% Feeding Ability Independent Urine Appearance Clear Urine Color Dark Yellow Exam: General: Alert, Awake, No acute Distress, obese Eyes/N/T: EOMI, Head/Neck: neck supple, CV: Mildly tacky but regular, No murmurs Pulm: Clear b/l, no wheezing/rhonchi/rales Abd: soft, nontender, almost tympanic pt reports much flatus Ext: no clubbing/cyanosis/edema Neuro: Alert, no focal deficits, moves all extremities, Skin: warm/dry OBJ DATA Labs CBC & Chem 7: 06/20/21 05:09 06/20/21 05:09 Labs: Abnormal Lab Results 06/20/21 06/20/21 06/20/21 07:20 05:09 05:09 RBC Hgb 8.4 L Hct MCHC RDW MPV Lymph % (Auto) [place] % (Auto) Lymph # (Auto) [place] # (Auto) Sodium 132 L Carbon Dioxide 20 L Glucose 184 H Hemoglobin A1c Calcium 8.4 L NT-Pro-B Natriuret Pep 213.6 H 06/19/21 06/19/21 06/19/21 20:56 15:49 15:48 RBC 2.95 L Hgb 8.6 L 8.5 L Hct 27.8 L MCHC 30.6 L RDW 17.0 H MPV 11.1 H Lymph % (Auto) 10.8 L [place] % (Auto) 12.8 H Lymph # (Auto) 0.90 L [place] # (Auto) 1.07 H Sodium 130 L Carbon Dioxide 21 L Glucose 173 H Hemoglobin A1c Calcium 8.2 L NT-Pro-B Natriuret Pep 06/18/21 07:08 RBC Hgb Hct MCHC RDW MPV Lymph % (Auto) [place] % (Auto) Lymph # (Auto) [place] # (Auto) Sodium Carbon Dioxide Glucose Hemoglobin A1c 7.1 H Calcium NT-Pro-B Natriuret Pep Meds: Medications Albuterol Sulfate (Albuterol Sulfate 2.5 Mg/3 Ml Nebulizer) 2.5 mg NEB Q2HP PRN PRN Reason: Shortness Of Breath Albuterol/Ipratropium (Ipratropium/Albuterol 3 Ml Ampul.Neb) 3 ml NEB Q4HP PRN PRN Reason: Shortness Of Breath Buspirone HCl (Buspirone 15 Mg Tablet) 15 mg PO BID [facility] Last Admin: 06/21/21 08:36 Dose: 15 mg Documented by: Cyclobenzaprine HCl (Cyclobenzaprine 10 Mg Tablet) 10 mg PO TID [facility] Last Admin: 06/21/21 08:36 Dose: 10 mg Documented by: Diagnostic Test (Pha) (Accu-Chek 1 Each Strip) 1 each FS [facility] Last Admin: 06/21/21 07:15 Dose: 1 each Documented by: Duloxetine HCl (Duloxetine 30 Mg Capsule) 90 mg PO QDAY [facility] Last Admin: 06/21/21 08:36 Dose: 90 mg Documented by: Hydromorphone HCl (Hydromorphone 1 Mg/Ml Syringe) 0 mg IV Q2HP PRN; Protocol PRN Reason: Per Pain Protocol Last Admin: 06/20/21 07:47 Dose: 1 mg Documented by: Insulin Human Lispro (Insulin Lispro 1 Unit/0.01 Ml Unit) 0 unit SQ [facility]; Protocol Last Admin: 06/21/21 07:32 Dose: Not Given Documented by: Metoprolol Succinate (Metoprolol Succinate 50 Mg Tab.Xl.24h) 50 mg PO QDAY [facility] Last Admin: 06/21/21 08:36 Dose: 50 mg Documented by: Metoprolol Tartrate (Metoprolol Tartrate 5 Mg/5 Ml Vial) 5 mg IV Q2HP PRN PRN Reason: Tachyarrhythmias HR>110 Mupirocin (Mupirocin Oint 2% 22gm) 1 dose NARES BID [facility] Last Admin: 06/21/21 08:36 Dose: 1 dose Documented by: Ondansetron HCl (Ondansetron 4 Mg/2 Ml Vial) 4 mg IV Q6HP PRN PRN Reason: Nausea And Vomiting Last Admin: 06/20/21 19:18 Dose: 4 mg Documented by: Oxycodone/Acetaminophen (Oxycodone/Apap 5/325mg Tablet) 1 - 2 tab PO Q4-6HP PRN; Protocol PRN Reason: Per Pain Protocol Last Admin: 06/21/21 05:20 Dose: 1 tab Documented by: Empagliflozin [ Jardiance] 10 Mg Tablet 1 dose PO DAILY [facility] Last Admin: 06/21/21 08:37 Dose: Not Given Documented by: Pregabalin (Pregabalin 150 Mg Capsule) 150 mg PO Q8H [facility] Last Admin: 06/21/21 05:20 Dose: 150 mg Documented by: Simvastatin (Simvastatin 10 Mg Tablet) 10 mg PO HS [facility] Last Admin: 06/20/21 20:12 Dose: 10 mg Documented by: Sodium Chloride (0.9 % Sodium Chloride 10 Ml Syringe) 10 ml IV Q8 [facility] Last Admin: 06/21/21 05:21 Dose: 10 ml Documented by: Trazodone HCl (Trazodone Hcl 50 Mg Tablet) 50 mg PO [facility] Last Admin: 06/20/21 20:12 Dose: 50 mg Documented by: A/P Narrative A/P Narrative: A: #Hypoxia, possibly acute on chronic: 2/2 Atelectasis / and possibly pain medication -CTA no PE or infiltrate, b/l Atelectasis noted -sats 91% on room air when I saw her this morning #Junctional tachycardia: #Ileus vs : #HTN: on norvasc/BB #DM 2: #Depression/anxiety: #h/o Vertebral Comp Fx's: #Acute Rib Fx's Right side: #Left distal femur fracture: Plan: -wean o2 as able -IS, prn nebs -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 -Continue home psych/Flexeril/Lyrica/simvastatin. -SSI, -ppx: SCD until surgery Time Spent With Patient Time: Total time spent is greater than 50% in coordination of care (as documented) at patient's floor/unit and/or counseling patient: QUALITY VTE Deep Vein Thrombosis/Pulmonary Embolism Present on Admission: No
[2021-06-21] MEDS ORDERED: SCOPOLAMINE 1 PATCH PATCH TOPICAL PRN (09:08)
[2021-06-21] MEDS: HYDROmorphone 1 MG/ML SYRINGE IV PRN ×2 (09:47→23:51)
[2021-06-21 10:13] LABS: ALT/SGPT 9 U/L (<40); AST/SGOT 19 U/L (<32); Alkaline Phosphatase 67 U/L (39-117); Bilirubin,Direct 0.3 mg/dL (<0.3); Bilirubin,Total 0.6 mg/dL (0.1-1.0); Blood Urea Nitrogen 14 mg/dL (8-23); Calcium 8.7 mg/dL (8.6-10.4); Carbon Dioxide 21 mmol/L (22-30); Chloride 98 mmol/L (96-108); Globulin 3.1 gm/dL (2.2-3.7); Glomerular Filtration Rate 77; Glucose 178 mg/dL (70-105); Lactate Dehydrogenase 159 U/L (135-225); Phosphorous 2.8 mg/dL (2.5-4.5); Triglycerides 119 mg/dL (<150); Uric Acid 6.2 mg/dL (2.5-8.0)
[2021-06-21] MEDS ORDERED: ceFAZolin 2 GM in DEXTROSE 5% IN WATER 50 ML IV SCH (14:15)
[2021-06-21] MEDS ORDERED: ceFAZolin 1 GM VIAL ONE (15:03)
[2021-06-21] MEDS ORDERED: KETAMINE 50 MG/ML Syringe (ANEST) IV ONE (19:15)
[2021-06-21] MEDS ORDERED: fentaNYL 100 MCG/2 ML VIAL IV ONE (19:15)
[2021-06-21] MEDS ORDERED: METOPROLOL TARTRATE 5 MG/5 ML VIAL IV ONE (19:15)
[2021-06-21] MEDS ORDERED: TRANEXAMIC ACID 1,000 MG/10 ML VIAL ONE ×2 (19:15→21:27)
[2021-06-21] MEDS ORDERED: LIDOCAINE HCL/PF 100 MG/5 ML SYRINGE IV ONE (19:15)
[2021-06-21] MEDS ORDERED: PROPOFOL 200 MG/20 ML VIAL IV ONE (19:15)
[2021-06-21] MEDS ORDERED: DEXAMETHASONE 10 MG/ML VIAL ONE (19:15)
[2021-06-21] MEDS ORDERED: MAGNESIUM SULFATE 2 GM/50 ML BAG IV ONE (19:15)
[2021-06-21] MEDS ORDERED: HYDROmorphone 1 MG/ML SYRINGE ONE (19:15)
[2021-06-21] MEDS ORDERED: ONDANSETRON 4 MG/2 ML VIAL ONE (19:15)
[2021-06-21] MEDS ORDERED: ONDANSETRON 4 MG/2 ML VIAL IV PRN ×2 (20:48→21:03)
[2021-06-21] MEDS ORDERED: fentaNYL 100 MCG/2 ML VIAL IV PRN (20:48)
[2021-06-21] MEDS ORDERED: IPRATROPIUM/ALBUTEROL 3 ML AMPUL.NEB NEB PRN (20:48)
[2021-06-21] MEDS ORDERED: NALOXONE HCL 0.4 MG/ML VIAL IV PRN (20:48)
[2021-06-21] MEDS ORDERED: PROMETHAZINE 25 MG/ML VIAL IV PRN (20:48)
[2021-06-21] MEDS ORDERED: ACETAMINOPHEN 1,000 MG/100 ML BAG IV ONE ×2 (20:48→21:07)
[2021-06-21] MEDS ORDERED: LACTATED RINGERS 250 ML IV PRN (20:48)
[2021-06-21] MEDS ORDERED: MEPERIDINE 25 MG/ML VIAL IV PRN (20:48)
[2021-06-21] MEDS ORDERED: diphenhydrAMINE 50 MG/ML VIAL IV PRN (20:48)
[2021-06-21] MEDS ORDERED: LACTATED RINGERS 1,000 ML IV SCH (21:00)
--- NOTE | 2021-06-21 21:02 | Brief Operative Note ---
Brief Operative Note Date of procedure: 06/21/21 Pre-op diagnosis: Left supracondylar femur fx Post-op diagnosis: same Procedure: left supracondylar femur fx orif Grafts/Implants: Yes Anesthesia: GETA Complications: none Complications Description: none Surgeon: Rafael Betts Artificial Intelligence Specialist: Alexys Wiley Estimated blood loss (cc): 70 Specimens Removed/Pathology: none sent Condition: stable Disposition: PACU
[2021-06-21] MEDS ORDERED: TRANEXAMIC ACID 1,000 MG/10 ML VIAL IV ONE (21:03)
[2021-06-21] MEDS ORDERED: BENZOCAINE/MENTHOL 1 LOZENGE PO PRN (21:03)
[2021-06-21] MEDS ORDERED: FLEETS ADULT ENEMA PR PRN (21:03)
[2021-06-21] MEDS ORDERED: HYDROmorphone 1 MG/ML SYRINGE IV PRN (21:03)
[2021-06-21] MEDS ORDERED: POLYETHYLENE GLYCOL 3350 17 GM PACKET PO PRN (21:03)
[2021-06-21] MEDS ORDERED: MAGNESIUM HYDROXIDE 30 ML ORAL.SUSP PO PRN (21:03)
[2021-06-21] MEDS ORDERED: TEMAZEPAM 15 MG CAPSULE PO PRN (21:03)
[2021-06-21] MEDS ORDERED: BISACODYL 10 MG SUPP.RECT PR PRN (21:03)
[2021-06-21] MEDS ORDERED: ACETAMINOPHEN 325 MG TABLET PO PRN (21:03)
[2021-06-21] MEDS: SIMVASTATIN 10 MG TABLET PO SCH (22:35)
[2021-06-21] MEDS: traZODone HCL 50 MG TABLET PO SCH (22:35)
[2021-06-21] MEDS: SODIUM CHLORIDE 1 GM TABLET PO SCH (22:35)
[2021-06-21] MEDS: 0.45 % SODIUM CHLORIDE 1,000 ML IV SCH (22:45)
[2021-06-21] MEDS: ceFAZolin 1 GM VIAL IV SCH (23:50)
[2021-06-22 01:59] LABS: Appearance,Urine Clear (Clear); Bilirubin,Urine Negative (Negative); Color,Urine Yellow; Culture Indicated,Urine No; Ketones,Urine Trace mg/dL (Negative); Leukocyte Esterase,Urine Negative /uL (Negative); Nitrate,Urine Negative (Negative); Protein,Urine Negative (Negative); Specific Gravity,Urine 1.015 (1.000-1.035); Urine Blood Negative ery/mcL (Negative); Urine RBC < 1 /hpf (0-3); Urine Squamous Epithelial Cell 1 /hpf (0-4); Urine WBC 6 /hpf (0-4); Urobilinogen,Urine Normal
[2021-06-22] MEDS: HYDROmorphone 1 MG/ML SYRINGE IV PRN ×3 (03:08→11:48)
[2021-06-22] MEDS: 0.9 % SODIUM CHLORIDE 10 ML SYRINGE IV SCH ×6 (05:17→21:43)
[2021-06-22] MEDS: PREGABALIN 150 MG CAPSULE PO SCH ×3 (05:18→21:40)
[2021-06-22 07:10] LABS: ALT/SGPT 9 U/L (<40); AST/SGOT 20 U/L (<32); Albumin 3.1 gm/dL (3.2-5.2); Alkaline Phosphatase 75 U/L (39-117); Bilirubin,Direct 0.2 mg/dL (<0.3); Bilirubin,Total 0.5 mg/dL (0.1-1.0); Blood Urea Nitrogen 16 mg/dL (8-23); Calcium 8.4 mg/dL (8.6-10.4); Carbon Dioxide 22 mmol/L (22-30); Chloride 98 mmol/L (96-108); Glomerular Filtration Rate 77; Glucose 211 mg/dL (70-105); Lactate Dehydrogenase 179 U/L (135-225); Phosphorous 3.5 mg/dL (2.5-4.5); Triglycerides 112 mg/dL (<150); Uric Acid 6.5 mg/dL (2.5-8.0)
--- NOTE | 2021-06-22 07:42 | XRay Report ---
HISTORY: FINDINGS: IMPRESSION: 0.6 minutes of fluoroscopy time was used. Interpreted and Authenticated by: Tanvir Bain 06/22/21
[2021-06-22] MEDS: INSULIN LISPRO 1 UNIT/0.01 ML UNIT SQ SCH ×4 (07:50→20:54)
--- NOTE | 2021-06-22 07:52 | XRay Report ---
HISTORY: Postop repair fractured distal left femur FINDINGS: There is a comminuted fracture in the distal shaft and metaphyseal region of the distal femur. The bone fragments are held in good alignment using a large metal sideplate and multiple screws. The severe angulation deformity seen on the preoperative lateral x-ray has been corrected. On the AP view the distal end of the femur is displaced medial to the shaft a distance of 9 mm. This has been partially corrected. The knee prosthesis remains well-positioned IMPRESSION: Good alignment following open reduction internal fixation of the fractured distal left femur Interpreted and Authenticated by: Tanvir Bain 06/22/21
[2021-06-22] MEDS: ceFAZolin 1 GM VIAL IV SCH (08:09)
[2021-06-22] MEDS: DULoxetine 30 MG CAPSULE PO SCH (08:10)
[2021-06-22] MEDS: MUPIROCIN OINT 2% 22GM NARES SCH ×2 (08:10→21:40)
[2021-06-22] MEDS: METOPROLOL SUCCINATE 50 MG TAB.XL.24H PO SCH (08:10)
[2021-06-22] MEDS: ASPIRIN 81 MG TAB.CHEW PO SCH ×2 (08:10→20:54)
[2021-06-22] MEDS: CYCLOBENZAPRINE 10 MG TABLET PO SCH ×3 (08:10→20:54)
[2021-06-22] MEDS: busPIRone 15 MG TABLET PO SCH ×2 (08:11→20:54)
[2021-06-22] MEDS: 0.45 % SODIUM CHLORIDE 1,000 ML IV SCH ×2 (08:36→18:26)
--- NOTE | 2021-06-22 08:56 | Internal Med Progress Note ---
SUBJECTIVE Subjective Patient information: Note initiated : 06/22/21 at 8:54 am Service Date, if different from initiated Date: [] Patient: Anna Marie Montoya 65 y/o F admitted on 06/18/21 for left knee pain after fall. Chief Complaint: [] Interval history: History of present illness: Anna Marie Montoya is a 65-year-old female with a history of hypertension, type 2 diabetes mellitus, vertebral compression fractures, migraine headaches who was admitted on 06/19/2021 for a distal femur fracture that occurred during a mechanical fall at home. Soon after admission, the patient was found to be tachycardic and hypoxic. Hospital medicine was consulted for further evaluation. The patient was hemodynamically stable, heart rate about 120, the patient's respiratory rate is in the low 20s, she is requiring 4 L/min nasal cannula oxygen. The patient has been afebrile. CBC from 06/18/2021 did not show any leukocytosis, hemoglobin was normal, normal platelets. Renal function was normal, electrolytes were normal, the patient had a nonanion gap metabolic acidosis, hemoglobin A1c was 7.1. On exam, the patient has bilateral wheezes, no crackles appreciated. Showed junctional tachycardia. Portable 1 view chest x-ray showed clear lungs bilaterally. 3/2 No overnight event or new complaints. Patient was on room air 91% when I saw her. Heart rate around 100. No coughing or shortness of breath. 3/3 Status post ORIF. Heart rate around 100. Will wean off oxygen if able today. Aggressive I-S use. Follow-up sodium. Patient passing gas but no BMs. Asked for laxatives. Review of Systems: denies headache/fever/chills/nausea/vomiting/chest or abdominal pain/diarrhea. Otherwise see above. Constitutional Vitals: Vital Signs Temp Pulse Resp BP Pulse Ox 96.8 F L 103 H 14 119/72 97 06/22/21 08:00 06/22/21 08:00 06/22/21 08:00 06/22/21 08:00 06/22/21 08:00 Period Temp Pulse Resp BP Sys/Harrell Pulse Ox Last 24 Hr 96.8 F-98.7 F 96-105 10-31 102-133/69-88 90-97 Intake and Output 06/21/21 06/22/21 06/22/21 21:59 05:59 13:59 Intake Total 1400 440 Output Total 550 725 Balance 850 -285 Weight 105.097 kg Intake & Output: Intake & Output 06/21/21 06/22/21 06/22/21 21:59 05:59 13:59 Intake Total 1400 440 Output Total 550 725 Balance 850 -285 Weight 105.097 kg Intake: IV 100 Oral 440 IV - Manual Only 1300 Output: Urine Catheter Amount 725 Void Amount 300 Estimated Blood Loss 250 Other: Urine Appearance Clear Urine Color Light Jeanie Light Jeanie Urine Odor Strong Normal Exam: General: Alert, Awake, No acute Distress, obese Eyes/N/T: EOMI, Head/Neck: neck supple, CV: Mildly tacky but regular, No murmurs Pulm: Clear b/l, no wheezing/rhonchi/rales Abd: soft, nontender, almost tympanic pt reports much flatus Ext: no clubbing/cyanosis/edema Neuro: Alert, no focal deficits, moves all extremities, Skin: warm/dry OBJ DATA Labs CBC & Chem 7: 06/22/21 05:17 06/22/21 05:17 Labs: Abnormal Lab Results 06/22/21 06/22/21 06/21/21 05:17 05:17 11:30 RBC Hgb Hct 25.9 L MCHC RDW MPV Lymph % (Auto) [place] % (Auto) Lymph # (Auto) [place] # (Auto) Sodium 129 L Carbon Dioxide Glucose 211 H Calcium 8.4 L Direct Bilirubin GGT 104 H NT-Pro-B Natriuret Pep Albumin 3.1 L Urine Glucose (UA) 500 mg/dl A Urine Ketones Trace A Urine WBC 6 H 06/21/21 06/20/21 06/20/21 09:09 07:20 05:09 RBC Hgb Hct MCHC RDW MPV Lymph % (Auto) [place] % (Auto) Lymph # (Auto) [place] # (Auto) Sodium 131 L 132 L Carbon Dioxide 21 L 20 L Glucose 178 H 184 H Calcium 8.4 L Direct Bilirubin 0.3 H GGT 107 H NT-Pro-B Natriuret Pep 213.6 H Albumin 3.0 L Urine Glucose (UA) Urine Ketones Urine WBC 06/20/21 06/19/21 06/19/21 05:09 20:56 15:49 RBC 2.95 L Hgb 8.4 L 8.6 L 8.5 L Hct 27.8 L MCHC 30.6 L RDW 17.0 H MPV 11.1 H Lymph % (Auto) 10.8 L [place] % (Auto) 12.8 H Lymph # (Auto) 0.90 L [place] # (Auto) 1.07 H Sodium Carbon Dioxide Glucose Calcium Direct Bilirubin GGT NT-Pro-B Natriuret Pep Albumin Urine Glucose (UA) Urine Ketones Urine WBC 06/19/21 15:48 RBC Hgb Hct MCHC RDW MPV Lymph % (Auto) [place] % (Auto) Lymph # (Auto) [place] # (Auto) Sodium 130 L Carbon Dioxide 21 L Glucose 173 H Calcium 8.2 L Direct Bilirubin GGT NT-Pro-B Natriuret Pep Albumin Urine Glucose (UA) Urine Ketones Urine WBC Meds: Medications Acetaminophen (Acetaminophen 325 Mg Tablet) 650 mg PO Q6HP PRN; Protocol PRN Reason: Per Pain Protocol/Fever > 101 Albuterol Sulfate (Albuterol Sulfate 2.5 Mg/3 Ml Nebulizer) 2.5 mg NEB Q2HP PRN PRN Reason: Shortness Of Breath Albuterol/Ipratropium (Ipratropium/Albuterol 3 Ml Ampul.Neb) 3 ml NEB Q4HP PRN PRN Reason: Shortness Of Breath Aspirin (Aspirin 81 Mg Tab.Chew) 81 mg PO BID [facility] Last Admin: 06/22/21 08:10 Dose: 81 mg Documented by: Bisacodyl (Bisacodyl 10 Mg Supp.Rect) 10 mg [place] Q2-3DAYS PRN PRN Reason: Constipation Buspirone HCl (Buspirone 15 Mg Tablet) 15 mg PO BID [facility] Last Admin: 06/22/21 08:11 Dose: 15 mg Documented by: Cyclobenzaprine HCl (Cyclobenzaprine 10 Mg Tablet) 10 mg PO TID [facility] Last Admin: 06/22/21 08:10 Dose: 10 mg Documented by: Diagnostic Test (Pha) (Accu-Chek 1 Each Strip) 1 each FS ACHS [facility] Last Admin: 06/22/21 07:28 Dose: 1 each Documented by: Duloxetine HCl (Duloxetine 30 Mg Capsule) 90 mg PO QDAY [facility] Last Admin: 06/22/21 08:10 Dose: 90 mg Documented by: Hydromorphone HCl (Hydromorphone 1 Mg/Ml Syringe) 0 mg IV Q2HP PRN; Protocol PRN Reason: Per Pain Protocol Last Admin: 06/22/21 08:12 Dose: 1 mg Documented by: Hydromorphone HCl (Hydromorphone 1 Mg/Ml Syringe) 0.5 - 2 mg IV Q2HP PRN; Protocol PRN Reason: Per Pain Protocol Sodium Chloride (Sodium Chloride 0.45%) 1,000 mls @ 100 mls/hr IV .Q10H [facility] Last Admin: 06/22/21 08:36 Dose: Not Given Documented by: Insulin Human Lispro (Insulin Lispro 1 Unit/0.01 Ml Unit) 0 unit SQ ACHS [facility]; Protocol Last Admin: 06/22/21 07:50 Dose: 4 unit Documented by: Magnesium Hydroxide (Magnesium Hydroxide 30 Ml Oral.Susp) 30 ml PO BIDP PRN PRN Reason: Constipation Metoprolol Succinate (Metoprolol Succinate 50 Mg Tab.Xl.24h) 50 mg PO QDAY [facility] Last Admin: 06/22/21 08:10 Dose: 50 mg Documented by: Metoprolol Tartrate (Metoprolol Tartrate 5 Mg/5 Ml Vial) 5 mg IV Q2HP PRN PRN Reason: Tachyarrhythmias HR>110 Last Admin: 06/22/21 08:28 Dose: 5 mg Documented by: Mupirocin (Mupirocin Oint 2% 22gm) 1 dose NARES BID [facility] Last Admin: 06/22/21 08:10 Dose: 1 dose Documented by: Ondansetron HCl (Ondansetron 4 Mg/2 Ml Vial) 4 mg IV Q4HP PRN PRN Reason: Nausea And Vomiting Oxycodone/Acetaminophen (Oxycodone/Apap 5/325mg Tablet) 1 - 2 tab PO Q4-6HP PRN; Protocol PRN Reason: Per Pain Protocol Last Admin: 06/21/21 05:20 Dose: 1 tab Documented by: Empagliflozin [ Jardiance] 10 Mg Tablet 1 dose PO DAILY [facility] Last Admin: 06/22/21 08:11 Dose: Not Given Documented by: Polyethylene Glycol (Polyethylene Glycol 3350 17 Gm Packet) 17 gm PO DAILYP PRN PRN Reason: Constipation Pregabalin (Pregabalin 150 Mg Capsule) 150 mg PO Q8H [facility] Last Admin: 06/22/21 05:18 Dose: 150 mg Documented by: Simvastatin (Simvastatin 10 Mg Tablet) 10 mg PO [facility] Last Admin: 06/21/21 22:35 Dose: 10 mg Documented by: Sodium Biphosphate/Sodium Phosphate (Fleets Adult Enema) 1 dose [place] Q3-4DAYS PRN PRN Reason: Constipation Sodium Chloride (0.9 % Sodium Chloride 10 Ml Syringe) 10 ml IV Q8 [facility] Last Admin: 06/22/21 05:17 Dose: 10 ml Documented by: Sodium Chloride (Sodium Chloride 1 Gm Tablet) 2 gm PO BID [facility] Stop: 06/22/21 09:01 Last Admin: 06/21/21 22:35 Dose: 2 gm Documented by: Sodium Chloride (0.9 % Sodium Chloride 10 Ml Syringe) 10 ml IV Q8 [facility] Last Admin: 06/22/21 05:18 Dose: 10 ml Documented by: Temazepam (Temazepam 15 Mg Capsule) 15 mg PO HSP PRN PRN Reason: Insomnia Throat Lozenges (Benzocaine/Menthol 1 Lozenge) 1 lozenge PO PRN PRN PRN Reason: Sore Throat Trazodone HCl (Trazodone Hcl 50 Mg Tablet) 50 mg PO [facility] Last Admin: 06/21/21 22:35 Dose: 50 mg Documented by: A/P Narrative A/P Narrative: A: #Hypoxia, possibly acute on chronic: 2/ Atelectasis / and possibly pain medication -CTA no PE or infiltrate, b/l Atelectasis noted - #Junctional tachycardia ~100: #Ileus likely: #Hyponatremia: #HTN: good bp w/o norvasc, cont BB #DM 2: #Depression/anxiety: #h/o Vertebral Comp Fx's: #Acute Rib Fx's Right side: #Left distal femur fracture: s/p ORIF (06/21) #Anemia, acute on chronic post op: Plan: -wean o2 as able -IS, prn nebs -monitor technician -Consider IV AV node blocking medication for junctional tachcyardia, cont BB. -f/u sodium -Continue home psych/Flexeril/Lyrica/simvastatin. -SSI, -prn bladder scan/straight cath -ppx: ASA bid post op Time Spent With Patient Time: Total time spent is greater than 50% in coordination of care (as documented) at patient's floor/unit and/or counseling patient: QUALITY VTE Deep Vein Thrombosis/Pulmonary Embolism Present on Admission: No
[2021-06-22] MEDS ORDERED: SODIUM CHLORIDE 1 GM TABLET PO ONE (08:57)
--- NOTE | 2021-06-22 08:57 | Operative Note ---
DATE OF OPERATION: 06/21/2021 PREAMBLE: The patient is a 65-year-old female with supracondylar femur fracture on the left side. The surgery was delayed because of rib fracture and hypoxia. She has now been stabilized to undergo surgery. PREOPERATIVE DIAGNOSIS: Supracondylar femur fracture, left. POSTOPERATIVE DIAGNOSIS: Supracondylar femur fracture, left. PROCEDURE: Left supracondylar femur fracture open reduction internal fixation with bone grafting. SURGEON: Rafael Betts M.D. DESK CLERKS SUPERVISOR: Alexys Wiley PA-C. The PA's assistance was required for the safe and efficient completion of the entire case. This provider's expertise and technical skill were required throughout the case. The PA assisted with preoperative coordination, intraoperative retraction, wound closure, dressing and splint application, as well as postoperative documentation and care coordination. ANESTHESIA: General LMA anesthesia. COMPLICATIONS: None. ESTIMATED BLOOD LOSS: 120 mL. DESCRIPTION OF PROCEDURE: The patient was brought to the operating room. We placed an incision on the knee after a timeout was performed. We reduced the fracture under direct vision to avoid extension of the total knee and then we placed a 10-hole supracondylar plate from [place]. Six screws distally were placed, six or seven screws proximally were placed. Size of screws per nurse's note. These were locking screws. The patient tolerated this well without complication. We placed 2 mL of bone graft material in the supracondylar region for the comminution. The patient tolerated this well. We took pictures pre- and post-reduction and plating. The patient then had the wound closed with Stratafix and 2-0 Vicryl and verona superficially. The patient tolerated this well without complication. RBH:killian Job ID: [id number] Doc ID: [id number] Rafael Betts MD
[2021-06-22] MEDS ORDERED: FUROSEMIDE 20 MG/2 ML VIAL IV ONE (08:58)
[2021-06-22] MEDS ORDERED: METOPROLOL TARTRATE 5 MG/5 ML VIAL IV ONE (09:01)
[2021-06-22] MEDS: oxyCODONE/APAP 5/325MG TABLET PO PRN ×3 (09:23→23:29)
[2021-06-22] MEDS ORDERED: SENNOSIDES 1 TABLET PO ONE (09:30)
[2021-06-22] MEDS ORDERED: POLYETHYLENE GLYCOL 3350 17 GM PACKET PO ONE (09:30)
[2021-06-22] MEDS: SODIUM CHLORIDE 1 GM TABLET PO SCH ×3 (12:01→18:28)
[2021-06-22] MEDS: traZODone HCL 50 MG TABLET PO SCH (20:54)
[2021-06-22] MEDS: SIMVASTATIN 10 MG TABLET PO SCH (20:54)
[2021-06-22] MEDS: METOPROLOL TARTRATE 50 MG TABLET PO SCH (20:55)
[2021-06-23] MEDS: 0.45 % SODIUM CHLORIDE 1,000 ML IV SCH (04:08)
[2021-06-23] MEDS: oxyCODONE/APAP 5/325MG TABLET PO PRN ×3 (04:15→20:57)
[2021-06-23] MEDS: 0.9 % SODIUM CHLORIDE 10 ML SYRINGE IV SCH ×6 (04:16→21:09)
[2021-06-23] MEDS: PREGABALIN 150 MG CAPSULE PO SCH ×3 (05:13→21:17)
--- NOTE | 2021-06-23 07:01 | EKG ---
[facility] Test Date: 2021-06-19 Pat Name: Anna Marie Montoya Department: [facility] Room: 130 Gender: Female Lead Scientist: : 1955 Requested By: Rafael Betts Order Number: [id number] Reading MD: Evans Hughes Measurements Intervals [place] Rate: 129 P: [place]: QRS: -16 QRSD: 106 T: 124 QT: 351 QTc: 515 Interpretive Statements Narrow complex tachycardia; Uncertain mechanism Electronically Signed On 06-23-2021 7:00:59 PST by Evans Hughes /store/M0/[id number]/[id number].pdf
--- NOTE | 2021-06-23 07:05 | EKG ---
[facility] Test Date: 2021-06-20 Pat Name: Anna Marie Montoya Department: [facility] Room: 130 Gender: Female Promotion Specialist: : 1955 Requested By: Kana Mcguire Order Number: [id number] Reading MD: Evans Hughes Measurements Intervals [place] Rate: 109 P: [place]: QRS: -4 QRSD: 111 T: 43 QT: 429 QTc: 578 Interpretive Statements SINUS TACHYCARDIA Electronically Signed On 06-23-2021 7:05:11 PST by Evans Hughes /[facility] [place]/M0/[id number]/[id number]
[2021-06-23 07:08] LABS: Blood Urea Nitrogen 18 mg/dL (8-23); Calcium 8.3 mg/dL (8.6-10.4); Carbon Dioxide 23 mmol/L (22-30); Chloride 101 mmol/L (96-108); Glomerular Filtration Rate 90; Glucose 243 mg/dL (70-105)
--- NOTE | 2021-06-23 07:14 | EKG ---
[facility] Test Date: 2021-06-23 Pat Name: Anna Marie Montoya Department: [facility] Room: 126 Gender: Female Service Attendant: : 1955 Requested By: Bhaskar Duggan Order Number: [id number] Reading MD: Evans Hughes Measurements Intervals [place] Rate: 83 P: 0 MS: 61 QRS: -7 QRSD: 111 T: -8 QT: 392 QTc: 461 Interpretive Statements Sinus rhythm Short MS interval Incomplete left bundle branch block Low voltage, precordial leads Minimal ST elevation, inferior leads Electronically Signed On 06-23-2021 7:14:00 PST by Evans Hughes /store/M0/[id number]/[id number].pdf
[2021-06-23] MEDS: INSULIN LISPRO 1 UNIT/0.01 ML UNIT SQ SCH ×4 (08:13→20:59)
[2021-06-23] MEDS ORDERED: INSULIN GLARGINE, HUMAN 1 UNIT/0.01 ML SQ ONE (08:18)
--- NOTE | 2021-06-23 08:21 | Internal Med Progress Note ---
SUBJECTIVE Subjective Patient information: Note initiated : 06/23/21 at 8:14 am Service Date, if different from initiated Date: [] Patient: Anna Marie Montoya 65 y/o F admitted on 06/18/21 for left knee pain after fall. Chief Complaint: [] Interval history: History of present illness: Anna Marie Montoya is a 65-year-old female with a history of hypertension, type 2 diabetes mellitus, vertebral compression fractures, migraine headaches who was admitted on 06/19/2021 for a distal femur fracture that occurred during a mechanical fall at home. Soon after admission, the patient was found to be tachycardic and hypoxic. Hospital medicine was consulted for further evaluation. The patient was hemodynamically stable, heart rate about 120, the patient's respiratory rate is in the low 20s, she is requiring 4 L/min nasal cannula oxygen. The patient has been afebrile. CBC from 06/18/2021 did not show any leukocytosis, hemoglobin was normal, normal platelets. Renal function was normal, electrolytes were normal, the patient had a nonanion gap metabolic acidosis, hemoglobin A1c was 7.1. On exam, the patient has bilateral wheezes, no crackles appreciated. Showed junctional tachycardia. Portable 1 view chest x-ray showed clear lungs bilaterally. 3/2 No overnight event or new complaints. Patient was on room air 91% when I saw her. Heart rate around 100. No coughing or shortness of breath. 3/3 Status post ORIF. Heart rate around 100. Will wean off oxygen if able today. Aggressive I-S use. Follow-up sodium. Patient passing gas but no BMs. Asked for laxatives. 3/4 Patient seems to be doing well. Further information revealed that she does wear oxygen at home occasionally. Only requiring minimal here sometimes on room air sometimes requiring 1 L. Sodium improved. Review of Systems: denies headache/fever/chills/nausea/vomiting/chest or abdominal pain/diarrhea. Otherwise see above. Constitutional Vitals: Vital Signs Temp Pulse Resp BP Pulse Ox 98.5 F 83 16 110/73 94 06/23/21 07:25 06/23/21 07:25 06/23/21 07:25 06/23/21 07:25 06/23/21 07:25 Period Temp Pulse Resp BP Sys/Harrell Pulse Ox Last 24 Hr 96.9 F-98.5 F 83-111 14-18 105-122/64-76 91-95 Intake and Output 06/22/21 06/23/21 06/23/21 21:59 05:59 13:59 Intake Total 300 Output Total 500 500 Balance -500 -200 Weight 105.778 kg Intake & Output: Intake & Output 06/22/21 06/23/21 06/23/21 21:59 05:59 13:59 Intake Total 300 Output Total 500 500 Balance -500 -200 Weight 105.778 kg Intake: Oral 300 Output: Void Amount 500 500 Other: Urine Appearance Clear Urine Color Dark Yellow Bright Yellow Exam: General: Alert, Awake, No acute Distress, obese Eyes/N/T: EOMI, Head/Neck: neck supple, CV: RRR, No murmurs Pulm: Clear b/l, no wheezing/rhonchi/rales Abd: soft, nontender, almost tympanic pt reports much flatus Ext: no clubbing/cyanosis/edema Neuro: Alert, no focal deficits, moves all extremities, Skin: warm/dry OBJ DATA Labs CBC & Chem 7: 06/22/21 05:17 06/23/21 05:23 Labs: Abnormal Lab Results 06/23/21 06/22/21 06/22/21 05:23 05:17 05:17 Hct 25.9 L Sodium 129 L Carbon Dioxide Glucose 243 H 211 H Calcium 8.3 L 8.4 L Direct Bilirubin GGT 104 H NT-Pro-B Natriuret Pep Albumin 3.1 L Urine Glucose (UA) Urine Ketones Urine WBC 06/21/21 06/21/21 06/20/21 11:30 09:09 07:20 Hct Sodium 131 L Carbon Dioxide 21 L Glucose 178 H Calcium Direct Bilirubin 0.3 H GGT 107 H NT-Pro-B Natriuret Pep 213.6 H Albumin 3.0 L Urine Glucose (UA) 500 mg/dl A Urine Ketones Trace A Urine WBC 6 H Meds: Medications Acetaminophen (Acetaminophen 325 Mg Tablet) 650 mg PO Q6HP PRN; Protocol PRN Reason: Per Pain Protocol/Fever > 101 Albuterol Sulfate (Albuterol Sulfate 2.5 Mg/3 Ml Nebulizer) 2.5 mg NEB Q2HP PRN PRN Reason: Shortness Of Breath Albuterol/Ipratropium (Ipratropium/Albuterol 3 Ml Ampul.Neb) 3 ml NEB Q4HP PRN PRN Reason: Shortness Of Breath Aspirin (Aspirin 81 Mg Tab.Chew) 81 mg PO BID [facility] Last Admin: 06/22/21 20:54 Dose: 81 mg Documented by: Bisacodyl (Bisacodyl 10 Mg Supp.Rect) 10 mg [place] Q2-3DAYS PRN PRN Reason: Constipation Buspirone HCl (Buspirone 15 Mg Tablet) 15 mg PO BID [facility] Last Admin: 06/22/21 20:54 Dose: 15 mg Documented by: Cyclobenzaprine HCl (Cyclobenzaprine 10 Mg Tablet) 10 mg PO TID [facility] Last Admin: 06/22/21 20:54 Dose: 10 mg Documented by: Diagnostic Test (Pha) (Accu-Chek 1 Each Strip) 1 each FS [facility] Last Admin: 06/23/21 08:12 Dose: 1 each Documented by: Duloxetine HCl (Duloxetine 30 Mg Capsule) 90 mg PO QDAY [facility] Last Admin: 06/22/21 08:10 Dose: 90 mg Documented by: Hydromorphone HCl (Hydromorphone 1 Mg/Ml Syringe) 0.5 - 2 mg IV Q2HP PRN; Protocol PRN Reason: Per Pain Protocol Sodium Chloride (Sodium Chloride 0.45%) 1,000 mls @ 100 mls/hr IV .Q10H [facility] Last Admin: 06/23/21 04:08 Dose: Not Given Documented by: Insulin Human Lispro (Insulin Lispro 1 Unit/0.01 Ml Unit) 0 unit SQ [facility]; Protocol Last Admin: 06/23/21 08:13 Dose: 3 unit Documented by: Magnesium Hydroxide (Magnesium Hydroxide 30 Ml Oral.Susp) 30 ml PO BIDP PRN PRN Reason: Constipation Metoprolol Tartrate (Metoprolol Tartrate 5 Mg/5 Ml Vial) 5 mg IV Q2HP PRN PRN Reason: Tachyarrhythmias HR>110 Last Admin: 06/22/21 08:28 Dose: 5 mg Documented by: Metoprolol Tartrate (Metoprolol Tartrate 50 Mg Tablet) 50 mg PO BID [facility] Last Admin: 06/22/21 20:55 Dose: 50 mg Documented by: Mupirocin (Mupirocin Oint 2% 22gm) 1 dose NARES BID [facility] Last Admin: 06/22/21 21:40 Dose: 1 dose Documented by: Ondansetron HCl (Ondansetron 4 Mg/2 Ml Vial) 4 mg IV Q4HP PRN PRN Reason: Nausea And Vomiting Oxycodone/Acetaminophen (Oxycodone/Apap 5/325mg Tablet) 1 - 2 tab PO Q4-6HP PRN; Protocol PRN Reason: Per Pain Protocol Last Admin: 06/23/21 04:15 Dose: 2 tab Documented by: Empagliflozin [ Jardiance] 10 Mg Tablet 1 dose PO DAILY [facility] Last Admin: 06/22/21 08:11 Dose: Not Given Documented by: Polyethylene Glycol (Polyethylene Glycol 3350 17 Gm Packet) 17 gm PO DAILYP PRN PRN Reason: Constipation Pregabalin (Pregabalin 150 Mg Capsule) 150 mg PO Q8H [facility] Last Admin: 06/23/21 05:13 Dose: 150 mg Documented by: Simvastatin (Simvastatin 10 Mg Tablet) 10 mg PO [facility] Last Admin: 06/22/21 20:54 Dose: 10 mg Documented by: Sodium Biphosphate/Sodium Phosphate (Fleets Adult Enema) 1 dose [place] Q3-4DAYS PRN PRN Reason: Constipation Sodium Chloride (0.9 % Sodium Chloride 10 Ml Syringe) 10 ml IV Q8 [facility] Last Admin: 06/23/21 04:16 Dose: 10 ml Documented by: Sodium Chloride (0.9 % Sodium Chloride 10 Ml Syringe) 10 ml IV Q8 [facility] Last Admin: 06/23/21 04:17 Dose: 10 ml Documented by: Temazepam (Temazepam 15 Mg Capsule) 15 mg PO HSP PRN PRN Reason: Insomnia Throat Lozenges (Benzocaine/Menthol 1 Lozenge) 1 lozenge PO PRN PRN PRN Reason: Sore Throat Trazodone HCl (Trazodone Hcl 50 Mg Tablet) 50 mg PO [facility] Last Admin: 06/22/21 20:54 Dose: 50 mg Documented by: A/P Narrative A/P Narrative: A: #Hypoxia, chronic with acute component: 2/2 Atelectasis / and possibly pain medication -CTA no PE or infiltrate, b/l Atelectasis noted -0-1L NC on minimal O2, cont home regimen #Junctional tachy on admit then to Sinus Tach: improved #Ileus likely: #Hyponatremia: improved #HTN: good bp w/o norvasc, cont BB #DM 2: A1c 7 #Depression/anxiety: #h/o Vertebral Comp Fx's: #Acute Rib Fx's Right side: #Left distal femur fracture: s/p ORIF (06/21) #Anemia, acute on chronic post op: Plan: -IS, prn nebs -IVF, f/u sodium -Continue home psych/Flexeril/Lyrica/simvastatin. -SSI, -prn bladder scan/straight cath -ppx: ASA bid post op Time Spent With Patient Time: Total time spent is greater than 50% in coordination of care (as documented) at patient's floor/unit and/or counseling patient: QUALITY VTE Deep Vein Thrombosis/Pulmonary Embolism Present on Admission: No
[2021-06-23] MEDS: busPIRone 15 MG TABLET PO SCH ×2 (08:23→20:58)
[2021-06-23] MEDS: ASPIRIN 81 MG TAB.CHEW PO SCH ×2 (08:23→20:57)
[2021-06-23] MEDS: METOPROLOL TARTRATE 50 MG TABLET PO SCH ×2 (08:23→20:58)
[2021-06-23] MEDS: DULoxetine 30 MG CAPSULE PO SCH (08:23)
[2021-06-23] MEDS: CYCLOBENZAPRINE 10 MG TABLET PO SCH ×3 (08:23→20:59)
[2021-06-23] MEDS: MUPIROCIN OINT 2% 22GM NARES SCH ×2 (08:24→20:59)
--- NOTE | 2021-06-23 10:41 | XRay Report ---
HISTORY: Fell, abdominal pain, suspect ileus FINDINGS: There are extensive postsurgical changes following prior gastric reduction surgery. The large and small intestine are normal in caliber without evidence of ileus or obstruction. No gross free intra-abdominal air is seen on this supine study. There are several old healed bilateral rib fractures in the lower thorax. Degenerative changes are present at multiple levels in the thoracic and lumbar spine. No acute fracture is detected. IMPRESSION: No acute abnormality Interpreted and Authenticated by: Tanvir Bain 06/23/21
[2021-06-23] MEDS: traZODone HCL 50 MG TABLET PO SCH (20:58)
[2021-06-23] MEDS: SIMVASTATIN 10 MG TABLET PO SCH (20:58)
[2021-06-24] MEDS: oxyCODONE/APAP 5/325MG TABLET PO PRN ×3 (02:18→10:20)
[2021-06-24] MEDS: PREGABALIN 150 MG CAPSULE PO SCH ×2 (05:08→14:32)
[2021-06-24] MEDS: 0.9 % SODIUM CHLORIDE 10 ML SYRINGE IV SCH ×4 (05:09→14:32)
[2021-06-24] MEDS: INSULIN LISPRO 1 UNIT/0.01 ML UNIT SQ SCH ×3 (07:33→16:33)
--- NOTE | 2021-06-24 07:48 | Orthopedic Progress Note ---
SUBJECTIVE Subjective Patient information: Note initiated : 06/24/21 at 7:41 am Service Date, if different from initiated Date: [] Patient: Anna Marie Montoya 65 y/o F admitted on 06/18/21 for left knee pain after fall. Chief Complaint: [Eating and drinking and transfer ] Principal diagnosis: scff with orig day3 Constitutional Vitals: Vital Signs Temp Pulse Resp BP Pulse Ox 98 F 70 18 103/61 94 06/24/21 07:38 06/24/21 07:38 06/24/21 07:38 06/24/21 07:38 06/24/21 07:38 Period Temp Pulse Resp BP Sys/Harrell Pulse Ox Last 24 Hr 97.6 F-98.8 F 70-102 14-20 99-117/61-81 88-97 Intake and Output 06/23/21 06/24/21 06/24/21 21:59 05:59 13:59 Intake Total 700 960 Output Total 852 Balance -152 960 Weight 238 lb Intake & Output: Intake & Output 06/23/21 06/24/21 06/24/21 21:59 05:59 13:59 Intake Total 700 960 Output Total 852 Balance -152 960 Weight 238 lb Intake: Oral 700 960 Output: Void Amount 850 # of times incontinent of urine 2 Other: Meal Dinner egg salad sandwich and string cheese Percent of Meal Consumed 98 100% Feeding Ability Independent Urine Appearance Clear Urine Color Dark Yellow Stool Size Small Small Large Stool Color Brown Brown Brown Stool Consistency Formed Soft Formed Loose # Voids 1 # Bowel Movements 1 1 Respiratory Respiratory exam: Present normal respiratory exam and CTAB Cardiovascular Cardiovascular exam: Present normal rate and rhythm Neurological Exam Neurological exam: Present abnormal gait, alert, CN II-XII intact and oriented X3 OBJ DATA Labs CBC & Chem 7: 06/22/21 05:17 06/23/21 05:23 Labs: Abnormal Lab Results 06/23/21 06/22/21 06/22/21 05:23 05:17 05:17 Hct 25.9 L Sodium 129 L Carbon Dioxide Glucose 243 H 211 H Calcium 8.3 L 8.4 L Direct Bilirubin GGT 104 H Albumin 3.1 L Urine Glucose (UA) Urine Ketones Urine WBC 06/21/21 06/21/21 11:30 09:09 Hct Sodium 131 L Carbon Dioxide 21 L Glucose 178 H Calcium Direct Bilirubin 0.3 H GGT 107 H Albumin 3.0 L Urine Glucose (UA) 500 mg/dl A Urine Ketones Trace A Urine WBC 6 H Meds: Medications Acetaminophen (Acetaminophen 325 Mg Tablet) 650 mg PO Q6HP PRN; Protocol PRN Reason: Per Pain Protocol/Fever > 101 Albuterol Sulfate (Albuterol Sulfate 2.5 Mg/3 Ml Nebulizer) 2.5 mg NEB Q2HP PRN PRN Reason: Shortness Of Breath Albuterol/Ipratropium (Ipratropium/Albuterol 3 Ml Ampul.Neb) 3 ml NEB Q4HP PRN PRN Reason: Shortness Of Breath Aspirin (Aspirin 81 Mg Tab.Chew) 81 mg PO BID [facility] Last Admin: 06/23/21 20:57 Dose: 81 mg Documented by: Bisacodyl (Bisacodyl 10 Mg Supp.Rect) 10 mg WI Q2-3DAYS PRN PRN Reason: Constipation Last Admin: 06/23/21 11:58 Dose: 10 mg Documented by: Buspirone HCl (Buspirone 15 Mg Tablet) 15 mg PO BID [facility] Last Admin: 06/23/21 20:58 Dose: 15 mg Documented by: Cyclobenzaprine HCl (Cyclobenzaprine 10 Mg Tablet) 10 mg PO TID [facility] Last Admin: 06/23/21 20:59 Dose: 10 mg Documented by: Diagnostic Test (Pha) (Accu-Chek 1 Each Strip) 1 each FS [facility] Last Admin: 06/24/21 07:32 Dose: 1 each Documented by: Duloxetine HCl (Duloxetine 30 Mg Capsule) 90 mg PO QDAY [facility] Last Admin: 06/23/21 08:23 Dose: 90 mg Documented by: Hydromorphone HCl (Hydromorphone 1 Mg/Ml Syringe) 0.5 - 2 mg IV Q2HP PRN; Protocol PRN Reason: Per Pain Protocol Insulin Human Lispro (Insulin Lispro 1 Unit/0.01 Ml Unit) 0 unit SQ [facility]; Protocol Last Admin: 06/24/21 07:33 Dose: 3 unit Documented by: Magnesium Hydroxide (Magnesium Hydroxide 30 Ml Oral.Susp) 30 ml PO BIDP PRN PRN Reason: Constipation Last Admin: 06/23/21 08:24 Dose: 30 ml Documented by: Metoprolol Tartrate (Metoprolol Tartrate 5 Mg/5 Ml Vial) 5 mg IV Q2HP PRN PRN Reason: Tachyarrhythmias HR>110 Last Admin: 06/22/21 08:28 Dose: 5 mg Documented by: Metoprolol Tartrate (Metoprolol Tartrate 50 Mg Tablet) 50 mg PO BID [facility] Last Admin: 06/23/21 20:58 Dose: 50 mg Documented by: Mupirocin (Mupirocin Oint 2% 22gm) 1 dose NARES BID [facility] Last Admin: 06/23/21 20:59 Dose: 1 dose Documented by: Ondansetron HCl (Ondansetron 4 Mg/2 Ml Vial) 4 mg IV Q4HP PRN PRN Reason: Nausea And Vomiting Oxycodone/Acetaminophen (Oxycodone/Apap 5/325mg Tablet) 1 - 2 tab PO Q4-6HP WI N; Protocol PRN Reason: Per Pain Protocol Last Admin: 06/24/21 05:50 Dose: 1 tab Documented by: Empagliflozin [ Jardiance] 10 Mg Tablet 1 dose PO DAILY [facility] Last Admin: 06/23/21 10:52 Dose: Not Given Documented by: Polyethylene Glycol (Polyethylene Glycol 3350 17 Gm Packet) 17 gm PO DAILYP PRN PRN Reason: Constipation Pregabalin (Pregabalin 150 Mg Capsule) 150 mg PO Q8H [facility] Last Admin: 06/24/21 05:08 Dose: 150 mg Documented by: Simvastatin (Simvastatin 10 Mg Tablet) 10 mg PO HS [facility] Last Admin: 06/23/21 20:58 Dose: 10 mg Documented by: Sodium Biphosphate/Sodium Phosphate (Fleets Adult Enema) 1 dose WI Q3-4DAYS PRN PRN Reason: Constipation Sodium Chloride (0.9 % Sodium Chloride 10 Ml Syringe) 10 ml IV Q8 [facility] Last Admin: 06/24/21 05:09 Dose: Not Given Documented by: Sodium Chloride (0.9 % Sodium Chloride 10 Ml Syringe) 10 ml IV Q8 [facility] Last Admin: 06/24/21 05:09 Dose: Not Given Documented by: Temazepam (Temazepam 15 Mg Capsule) 15 mg PO HSP PRN PRN Reason: Insomnia Throat Lozenges (Benzocaine/Menthol 1 Lozenge) 1 lozenge PO PRN PRN PRN Reason: Sore Throat Trazodone HCl (Trazodone Hcl 50 Mg Tablet) 50 mg PO [facility] Last Admin: 06/23/21 20:58 Dose: 50 mg Documented by: A/P Assessment and plan (1) Diabetes 1.5, managed as type 2: Status: Acute Comment: Blood sugar is running high 246 Narrative A/P Narrative: Discharge today with home health touch toe weight bearing f/u in 2 weeks diabetes will need monitoring and rom of ankle and exercise Time Spent With Patient Time: Total time spent is greater than 50% in coordination of care (as documented) at patient's floor/unit and/or counseling patient: Total time spent with greater than 50% in coordination of care (as documented) at patient's floor/unit and/or counseling patient:: 15 - 24 minutes
--- NOTE | 2021-06-24 08:10 | Discharge Summary ---
Discharge Provider Provider Patient information: Note initiated : 06/24/21 at 8:06 am Service Date, if different from initiated Date: [] Patient: Anna Marie Montoya 65 y/o F admitted on 06/18/21 for left knee pain after fall. Chief Complaint: [none] Date of admission: 06/18/21 09:29 Discharge date: 07/04/21 Primary care physician: Mary Landa Consults: 06/18/21 Consult to Physician [CONS] Stat Comment: Consulting Provider: Rafael Betts Reason For Exam: Physician to Consult 06/19/21 09:58 Consult to Physician [CONS] Routine Comment: Consulting Provider: Kana Mcguire Reason For Exam: Physician to Consult Attending physician on discharge: Rafael Betts COURSE Hospital Course Hospital course: rib fracture on the right Discharge diagnosis: left supracondylar femur fx Secondary discharge diagnosis: rib fx Reason for admission: left femur fx Procedures: left femur orif Complications: none Time spent discussing smoking cessation with patient: more than 10 minutes Time Spent with Patient Time attestation: Total time spent providing and/or coordinating discharge services: Time spent: Greater than 30 minutes Discharge Instructions - TKA Patient Instructions Total Knee Protocol: For Total Knee: Start ROM LIZZIE with stationary bike or rocking chair. Work on gaining full extension of knee. Posterior dislocation precautions provided. Hip abductor strengthening and gait training instructions provided. Apply Cryocuff as instructed. Dressing Care: May shower in 2 days Discharge Plan Patient/Caregiver Discharge Instructions Activity: ambulate only with your walker Diet: Regular Diet Instructions: Type 2 Diabetes in Children (DC) Activity Restrictions/Additional Instructions: none weight bearing left leg Prescriptions: New oxycodone-acetaminophen 5-325 mg Tablet 1 - 2 tab PO Q4-6HP PRN (Reason: Per Pain Protocol) Qty: 0 0RF oxycodone-acetaminophen 10-325 mg Tablet 1 - 2 tab PO 5XD PRN (Reason: Pain) Qty: 60 0RF Continued buspirone 7.5 mg Tablet 15 mg PO BID 0RF Rx Instructions: at noon lovastatin 20 mg Tablet Extended Release 24 Hr 20 mg PO QHS 0RF duloxetine [Cymbalta] 30 mg Capsule,Delayed Release(Dr/Ec) 90 mg PO QDAY 0RF metoprolol succinate 50 mg Tablet Extended Release 24 Hr 50 mg PO QDAY 0RF cyclobenzaprine 10 mg Tablet 10 mg PO TID 0RF trazodone 50 mg tablet 1 tab PO HS 0RF pregabalin 150 mg capsule 1 cap PO Q8 0RF Jardiance 10 mg tablet 1 tab PO QDAY 0RF Vitamin D3 125 mcg PO DAILY 0RF Changed meloxicam 15 mg Tablet 15 mg PO QDAY PRN (Reason: pain) Qty: 1 0RF Discontinued amlodipine 10 mg tablet 1 tab PO QDAY 0RF No Action aspirin [Adult Aspirin] 81 mg Tablet,Chewable 81 mg PO QDAY 0RF hydrocodone-acetaminophen 5-325 mg tablet 1 tab PO Q6H PRN (Reason: pain) 0RF Other Ambulatory Orders: Commode Discharge Order (ONCE) Location: None Selected Ordered By: Rafael Rivas (ONCE) Location: None Selected Ordered By: Rafael Betts Follow Up Plan Follow up with: Rafael Betts MD [Physician] - Mary Landa ARNP [Primary Care Provider] - Patient Disposition: Home Health Service Health Concerns: rib fractures and needs deep breathing Prognosis: Fair Rehab Potential: Good I certify that the patient requires SNF services: No Overall status at discharge: patient is progressing back to baseline Discharge Orders: Discharge Order (Routine); Ordered 06/24/21 Ordered By: Rafael Betts Pending Pending Pending: Resuscitation Status Resuscitate (Full Code) Diet Consistent Carbohydrate Diet Start SatJun 22 1139 Aspirin (Aspirin 81 Mg Tab.Chew) 81 mg PO BID [facility] Last Admin: 06/23/21 20:57 Dose: 81 mg Documented by: Admin: 06/23/21 08:23 Dose: 81 mg Documented by: Admin: 06/22/21 20:54 Dose: 81 mg Documented by: Admin: 06/22/21 08:10 Dose: 81 mg Documented by: EARLINE Bisacodyl (Bisacodyl 10 Mg Supp.Rect) 10 mg [place] Q2-3DAYS PRN PRN Reason: Constipation Last Admin: 06/23/21 11:58 Dose: 10 mg Documented by: COLETTE Buspirone HCl (Buspirone 15 Mg Tablet) 15 mg PO BID [facility] Last Admin: 06/23/21 20:58 Dose: 15 mg Documented by: Admin: 06/23/21 08:23 Dose: 15 mg Documented by: Admin: 06/22/21 20:54 Dose: 15 mg Documented by: Admin: 06/22/21 08:11 Dose: 15 mg Documented by: Admin: 06/21/21 22:35 Dose: 15 mg Documented by: Admin: 06/21/21 08:36 Dose: 15 mg Documented by: Admin: 06/20/21 20:12 Dose: 15 mg Documented by: Admin: 06/20/21 08:45 Dose: 15 mg Documented by: Admin: 06/19/21 20:15 Dose: 15 mg Documented by: Admin: 06/19/21 08:03 Dose: 15 mg Documented by: Admin: 06/18/21 21:04 Dose: 15 mg Documented by: DANIEL Cyclobenzaprine HCl (Cyclobenzaprine 10 Mg Tablet) 10 mg PO TID [facility] Admin: 06/23/21 20:59 Dose: 10 mg Documented by: Admin: 06/23/21 16:13 Dose: 10 mg Documented by: Admin: 06/23/21 08:23 Dose: 10 mg Documented by: Admin: 06/22/21 20:54 Dose: 10 mg Documented by: Admin: 06/22/21 18:26 Dose: 10 mg Documented by: Admin: 06/22/21 08:10 Dose: 10 mg Documented by: Admin: 06/21/21 22:35 Dose: 10 mg Documented by: Admin: 06/21/21 16:22 Dose: Not Given Documented by: Admin: 06/21/21 08:36 Dose: 10 mg Documented by: Admin: 06/20/21 20:12 Dose: 10 mg Documented by: Admin: 06/20/21 14:34 Dose: 10 mg Documented by: Admin: 06/20/21 08:45 Dose: 10 mg Documented by: Admin: 06/19/21 20:15 Dose: 10 mg Documented by: Admin: 06/19/21 14:51 Dose: 10 mg Documented by: Admin: 06/19/21 08:03 Dose: 10 mg Documented by: Admin: 06/18/21 21:04 Dose: 10 mg Documented by: Admin: 06/18/21 15:04 Dose: 10 mg Documented by: CEDRIC Diagnostic Test (Pha) (Accu-Chek 1 Each Strip) 1 each FS [facility] Last Admin: 06/24/21 07:32 Dose: 1 each Documented by: Admin: 06/23/21 20:57 Dose: 1 each Documented by: Admin: 06/23/21 16:25 Dose: 1 each Documented by: Admin: 06/23/21 11:56 Dose: 1 each Documented by: Admin: 06/23/21 08:12 Dose: 1 each Documented by: Admin: 06/22/21 20:53 Dose: 1 each Documented by: Admin: 06/22/21 16:24 Dose: 1 each Documented by: Admin: 06/22/21 11:52 Dose: 1 each Documented by: Admin: 06/22/21 07:28 Dose: 1 each Documented by: Admin: 06/21/21 22:34 Dose: 1 each Documented by: Admin: 06/21/21 16:43 Dose: 1 each Documented by: Admin: 06/21/21 13:41 Dose: 1 each Documented by: Admin: 06/21/21 07:15 Dose: 1 each Documented by: Cosigned by: Admin: 06/20/21 20:12 Dose: 1 each Documented by: Admin: 06/20/21 17:13 Dose: 1 each Documented by: Admin: 06/20/21 11:53 Dose: 1 each Documented by: Admin: 06/20/21 07:07 Dose: 1 each Documented by: Admin: 06/19/21 20:16 Dose: 1 each Documented by: Admin: 06/19/21 16:47 Dose: 1 each Documented by: Admin: 06/19/21 13:11 Dose: 1 each Documented by: Admin: 06/19/21 08:03 Dose: 1 each Documented by: Admin: 06/18/21 21:02 Dose: 1 each Documented by: Admin: 06/18/21 16:15 Dose: 1 each Documented by: Admin: 06/18/21 11:40 Dose: 1 each Documented by: CEDRIC Duloxetine HCl (Duloxetine 30 Mg Capsule) 90 mg PO QDAY [facility] Last Admin: 06/23/21 08:23 Dose: 90 mg Documented by: Admin: 06/22/21 08:10 Dose: 90 mg Documented by: Admin: 06/21/21 08:36 Dose: 90 mg Documented by: Admin: 06/20/21 08:45 Dose: 90 mg Documented by: Admin: 06/19/21 08:03 Dose: 90 mg Documented by: COLETTE Insulin Human Lispro (Insulin Lispro 1 Unit/0.01 Ml Unit) 0 unit SQ ACHS [facility]; Protocol Last Admin: 06/24/21 07:33 Dose: 3 unit Documented by: Admin: 06/23/21 20:59 Dose: 4 unit Documented by: Admin: 06/23/21 16:25 Dose: 3 unit Documented by: Admin: 06/23/21 11:56 Dose: 4 unit Documented by: Admin: 06/23/21 08:13 Dose: 3 unit Documented by: Admin: 06/22/21 20:54 Dose: 6 unit Documented by: Admin: 06/22/21 16:24 Dose: 6 unit Documented by: Admin: 06/22/21 12:00 Dose: 4 unit Documented by: Admin: 06/22/21 07:50 Dose: 4 unit Documented by: Admin: 06/21/21 22:34 Dose: 3 unit Documented by: Admin: 06/21/21 16:44 Dose: Not Given Documented by: Admin: 06/21/21 13:34 Dose: Not Given Documented by: Admin: 06/21/21 07:32 Dose: Not Given Documented by: Admin: 06/20/21 20:13 Dose: 4 unit Documented by: Admin: 06/20/21 17:13 Dose: 3 unit Documented by: Admin: 06/20/21 11:53 Dose: 3 unit Documented by: Admin: 06/20/21 07:26 Dose: 3 unit Documented by: Admin: 06/19/21 20:24 Dose: 2 unit Documented by: Admin: 06/19/21 16:47 Dose: 2 unit Documented by: Admin: 06/19/21 13:11 Dose: Not Given Documented by: Admin: 06/19/21 08:03 Dose: 2 unit Documented by: Admin: 06/18/21 21:14 Dose: 1 unit Documented by: Admin: 06/18/21 16:22 Dose: 1 unit Documented by: Admin: 06/18/21 11:45 Dose: 1 unit Documented by: CEDRIC Magnesium Hydroxide (Magnesium Hydroxide 30 Ml Oral.Susp) 30 ml PO BIDP PRN PRN Reason: Constipation Last Admin: 06/23/21 08:24 Dose: 30 ml Documented by: COLETTE Metoprolol Tartrate (Metoprolol Tartrate 5 Mg/5 Ml Vial) 5 mg IV Q2HP PRN PRN Reason: Tachyarrhythmias HR>110 Last Admin: 06/22/21 08:28 Dose: 5 mg Documented by: EARLINE Metoprolol Tartrate (Metoprolol Tartrate 50 Mg Tablet) 50 mg PO BID [facility] Last Admin: 06/23/21 20:58 Dose: 50 mg Documented by: Admin: 06/23/21 08:23 Dose: 50 mg Documented by: Admin: 06/22/21 20:55 Dose: 50 mg Documented by: SRIRAM Mupirocin (Mupirocin Oint 2% 22gm) 1 dose NARES BID [facility] Last Admin: 06/23/21 20:59 Dose: 1 dose Documented by: Admin: 06/23/21 08:24 Dose: 1 dose Documented by: Admin: 06/22/21 21:40 Dose: 1 dose Documented by: Admin: 06/22/21 08:10 Dose: 1 dose Documented by: Admin: 06/21/21 22:35 Dose: 1 dose Documented by: Admin: 06/21/21 08:36 Dose: 1 dose Documented by: Admin: 06/20/21 20:12 Dose: 1 dose Documented by: Admin: 06/20/21 08:45 Dose: 1 dose Documented by: Admin: 06/19/21 20:18 Dose: 1 dose Documented by: Admin: 06/19/21 08:03 Dose: 1 dose Documented by: Admin: 06/18/21 21:14 Dose: 1 dose Documented by: DANIEL Oxycodone/Acetaminophen (Oxycodone/Apap 5/325mg Tablet) 1 - 2 tab PO Q4-6HP PRN; Protocol PRN Reason: Per Pain Protocol Last Admin: 06/24/21 05:50 Dose: 1 tab Documented by: Admin: 06/24/21 02:18 Dose: 1 tab Documented by: Admin: 06/23/21 20:57 Dose: 2 tab Documented by: Admin: 06/23/21 11:57 Dose: 2 tab Documented by: Admin: 06/23/21 04:15 Dose: 2 tab Documented by: Admin: 06/22/21 23:29 Dose: 2 tab Documented by: Admin: 06/22/21 18:19 Dose: 2 tab Documented by: Admin: 06/22/21 09:23 Dose: 2 tab Documented by: Admin: 06/21/21 05:20 Dose: 1 tab Documented by: Admin: 06/20/21 20:12 Dose: 1 tab Documented by: Admin: 06/20/21 14:41 Dose: 1 tab Documented by: Admin: 06/20/21 14:34 Dose: 1 tab Documented by: Admin: 06/20/21 05:16 Dose: 2 tab Documented by: Admin: 06/19/21 20:16 Dose: 2 tab Documented by: Admin: 06/19/21 14:04 Dose: 2 tab Documented by: Admin: 06/19/21 06:42 Dose: 2 tab Documented by: Admin: 06/18/21 22:23 Dose: 2 tab Documented by: Admin: 06/18/21 17:29 Dose: 1 tab Documented by: CEDRIC Empagliflozin [ Jardiance] 10 Mg Tablet 1 dose PO DAILY [facility] Admin: 06/23/21 10:52 Dose: Not Given Documented by: Admin: 06/22/21 08:11 Dose: Not Given Documented by: Admin: 06/21/21 08:37 Dose: Not Given Documented by: Admin: 06/20/21 08:46 Dose: Not Given Documented by: Admin: 06/19/21 09:14 Dose: Not Given Documented by: COLETTE Pregabalin (Pregabalin 150 Mg Capsule) 150 mg PO Q8H [facility] Admin: 06/24/21 05:08 Dose: 150 mg Documented by: Admin: 06/23/21 21:17 Dose: 150 mg Documented by: Admin: 06/23/21 16:13 Dose: 150 mg Documented by: Admin: 06/23/21 05:13 Dose: 150 mg Documented by: Admin: 06/22/21 21:40 Dose: 150 mg Documented by: Admin: 06/22/21 18:25 Dose: 150 mg Documented by: Admin: 06/22/21 05:18 Dose: 150 mg Documented by: Admin: 06/21/21 22:35 Dose: 150 mg Documented by: Admin: 06/21/21 16:20 Dose: Not Given Documented by: Admin: 06/21/21 05:20 Dose: 150 mg Documented by: Admin: 06/20/21 20:12 Dose: 150 mg Documented by: Admin: 06/20/21 15:26 Dose: 150 mg Documented by: Admin: 06/20/21 05:51 Dose: 150 mg Documented by: Admin: 06/19/21 20:16 Dose: 150 mg Documented by: Admin: 06/19/21 14:05 Dose: 150 mg Documented by: Admin: 06/19/21 06:38 Dose: 150 mg Documented by: Admin: 06/18/21 22:27 Dose: 150 mg Documented by: Admin: 06/18/21 15:04 Dose: 150 mg Documented by: CEDRIC Simvastatin (Simvastatin 10 Mg Tablet) 10 mg PO HS [facility] Admin: 06/23/21 20:58 Dose: 10 mg Documented by: Admin: 06/22/21 20:54 Dose: 10 mg Documented by: Admin: 06/21/21 22:35 Dose: 10 mg Documented by: Admin: 06/20/21 20:12 Dose: 10 mg Documented by: Admin: 06/19/21 20:15 Dose: 10 mg Documented by: Admin: 06/18/21 21:04 Dose: 10 mg Documented by: DANIEL Sodium Chloride (0.9 % Sodium Chloride 10 Ml Syringe) 10 ml IV Q8 [facility] Admin: 06/24/21 05:09 Dose: Not Given Documented by: Admin: 06/23/21 21:09 Dose: Not Given Documented by: Admin: 06/23/21 16:13 Dose: 10 ml Documented by: Admin: 06/23/21 04:16 Dose: 10 ml Documented by: Admin: 06/22/21 21:40 Dose: 10 ml Documented by: Admin: 06/22/21 18:25 Dose: 10 ml Documented by: Admin: 06/22/21 05:17 Dose: 10 ml Documented by: Admin: 06/21/21 22:37 Dose: 10 ml Documented by: Admin: 06/21/21 16:22 Dose: 10 ml Documented by: Admin: 06/21/21 05:21 Dose: 10 ml Documented by: Admin: 06/20/21 20:13 Dose: 10 ml Documented by: Admin: 06/20/21 14:35 Dose: 10 ml Documented by: Admin: 06/20/21 05:51 Dose: 10 ml Documented by: Admin: 06/19/21 20:18 Dose: 10 ml Documented by: Admin: 06/19/21 13:52 Dose: 10 ml Documented by: Admin: 06/19/21 04:27 Dose: 10 ml Documented by: Admin: 06/18/21 21:07 Dose: 10 ml Documented by: Admin: 06/18/21 15:04 Dose: 10 ml Documented by: CEDRIC Sodium Chloride (0.9 % Sodium Chloride 10 Ml Syringe) 10 ml IV Q8 [facility] Admin: 06/24/21 05:09 Dose: Not Given Documented by: Admin: 06/23/21 21:09 Dose: Not Given Documented by: Admin: 06/23/21 16:13 Dose: 10 ml Documented by: Admin: 06/23/21 04:17 Dose: 10 ml Documented by: Admin: 06/22/21 21:43 Dose: 10 ml Documented by: Admin: 06/22/21 18:25 Dose: 10 ml Documented by: Admin: 06/22/21 05:18 Dose: 10 ml Documented by: Admin: 06/21/21 22:43 Dose: 10 ml Documented by: CANDICE Trazodone HCl (Trazodone Hcl 50 Mg Tablet) 50 mg PO HS [facility] Last Admin: 06/23/21 20:58 Dose: 50 mg Documented by: Admin: 06/22/21 20:54 Dose: 50 mg Documented by: Admin: 06/21/21 22:35 Dose: 50 mg Documented by: Admin: 06/20/21 20:12 Dose: 50 mg Documented by: Admin: 06/19/21 20:16 Dose: 50 mg Documented by: Admin: 06/18/21 21:04 Dose: 50 mg Documented by: DANIEL Shift Summary 06/24/21 04:05 Shift Summary by Genna Lombardi Primary Diagnosis: POD3 ORIF L femur fx Registration Status: Inpatient Day of Hospitalization: 06/18 Pertinent Medical Dx/Issues (may be more than one): Anna Marie Montoya is a 65-year-old female with a history of hypertension, type 2 diabetes mellitus, vertebral compression fractures, migraine headaches who was admitted on 06/19/2021 for a distal femur fracture that occurred during a mechanical fall at home. Interventions (O2, wounds, diuresis, etc): Weaning off of O2, Accu-cheks, pain control, CMS & neuro checks Q4 Vital Signs with Trends: VSS (sometimes soft) Meds (abo, pain, BP, etc): Percocet for pain X2 , flexeril TID, insulin and many home meds. Lines/Tubes: no IV, MD aware Oxygen needs (home use vs. current use): On 1L NC Lab/Rad results: AM labs ordered for this morning Cardiac Rhythm (if applicable), alarms, trends: Date of last BM: 06/24 Elimination: uses bed [facility] Recommendations/questions for MD (DC [place]? DC CM? PICC needed?): Trends (is the patient improving?): Activity: NWB to left leg Expected date of discharge: TBD Discharge Plan (needs, disposition, etc): TBD Additional Info: Plan: -IS, prn nebs -IVF, f/u sodium -Continue home psych/Flexeril/Lyrica/simvastatin. -SSI, -prn bladder scan/straight cath -ppx: ASA bid post op Initialized on 06/24/21 04:05 - END OF NOTE
[2021-06-24] MEDS: MUPIROCIN OINT 2% 22GM NARES SCH (08:29)
[2021-06-24] MEDS: DULoxetine 30 MG CAPSULE PO SCH (08:30)
[2021-06-24] MEDS: ASPIRIN 81 MG TAB.CHEW PO SCH (08:30)
[2021-06-24] MEDS: busPIRone 15 MG TABLET PO SCH (08:30)
[2021-06-24] MEDS: CYCLOBENZAPRINE 10 MG TABLET PO SCH ×2 (08:30→14:32)
[2021-06-24] MEDS: METOPROLOL TARTRATE 50 MG TABLET PO SCH (08:30)
--- NOTE | 2021-06-24 09:24 | Internal Med Progress Note ---
SUBJECTIVE Subjective Patient information: Note initiated : 06/24/21 at 9:21 am Service Date, if different from initiated Date: [] Patient: Anna Marie Montoya 65 y/o F admitted on 06/18/21 for left knee pain after fall. Chief Complaint: [] Principal diagnosis: scff with orig day3 Interval history: History of present illness: Anna Marie Montoya is a 65-year-old female with a history of hypertension, type 2 diabetes mellitus, vertebral compression fractures, migraine headaches who was admitted on 06/19/2021 for a distal femur fracture that occurred during a mechanical fall at home. Soon after admission, the patient was found to be tachycardic and hypoxic. Hospital medicine was consulted for further evaluation. The patient was hemodynamically stable, heart rate about 120, the patient's respiratory rate is in the low 20s, she is requiring 4 L/min nasal cannula oxygen. The patient has been afebrile. CBC from 06/18/2021 did not show any leukocytosis, hemoglobin was normal, normal platelets. Renal function was normal, electrolytes were normal, the patient had a nonanion gap metabolic acidosis, hemoglobin A1c was 7.1. On exam, the patient has bilateral wheezes, no crackles appreciated. Showed junctional tachycardia. Portable 1 view chest x-ray showed clear lungs bilaterally. 3/2 No overnight event or new complaints. Patient was on room air 91% when I saw her. Heart rate around 100. No coughing or shortness of breath. 3/3 Status post ORIF. Heart rate around 100. Will wean off oxygen if able today. Aggressive I-S use. Follow-up sodium. Patient passing gas but no BMs. Asked for laxatives. 3/4 Patient seems to be doing well. Further information revealed that she does wear oxygen at home occasionally. Only requiring minimal here sometimes on room air sometimes requiring 1 L. Sodium improved. Review of Systems: denies headache/fever/chills/nausea/vomiting/chest or abdominal pain/diarrhea. Otherwise see above. Constitutional Vitals: Vital Signs Temp Pulse Resp BP Pulse Ox 98 F 70 18 103/61 94 06/24/21 07:38 06/24/21 07:38 06/24/21 07:38 06/24/21 07:38 06/24/21 07:42 Period Temp Pulse Resp BP Sys/Harrell Pulse Ox Last 24 Hr 97.6 F-98.8 F 70-102 14-20 99-117/61-81 88-97 Intake and Output 06/23/21 06/24/21 06/24/21 21:59 05:59 13:59 Intake Total 700 960 480 Output Total 852 Balance -152 960 480 Weight 107.955 kg Intake & Output: Intake & Output 06/23/21 06/24/21 06/24/21 21:59 05:59 13:59 Intake Total 700 960 480 Output Total 852 Balance -152 960 480 Weight 107.955 kg Intake: Oral 700 960 480 Output: Void Amount 850 # of times incontinent of urine 2 Other: Meal Dinner egg salad sandwich and string cheese Breakfast Percent of Meal Consumed 98 100% 75% Feeding Ability Independent Urine Appearance Clear Urine Color Dark Yellow Stool Size Small Small Large Stool Color Brown Brown Brown Stool Consistency Formed Soft Formed Loose # Voids 1 # Bowel Movements 1 1 Exam: General: Alert, Awake, No acute Distress, obese Eyes/N/T: EOMI, Head/Neck: neck supple, CV: RRR, No murmurs Pulm: Clear b/l, no wheezing/rhonchi/rales Abd: soft, nontender, almost tympanic pt reports much flatus Ext: no clubbing/cyanosis/edema Neuro: Alert, no focal deficits, moves all extremities, Skin: warm/dry OBJ DATA Labs CBC & Chem 7: 06/22/21 05:17 06/23/21 05:23 Labs: Abnormal Lab Results 06/23/21 06/22/21 06/22/21 05:23 05:17 05:17 Hct 25.9 L Sodium 129 L Carbon Dioxide Glucose 243 H 211 H Calcium 8.3 L 8.4 L Direct Bilirubin GGT 104 H Albumin 3.1 L Urine Glucose (UA) Urine Ketones Urine WBC 06/21/21 06/21/21 11:30 09:09 Hct Sodium 131 L Carbon Dioxide 21 L Glucose 178 H Calcium Direct Bilirubin 0.3 H GGT 107 H Albumin 3.0 L Urine Glucose (UA) 500 mg/dl A Urine Ketones Trace A Urine WBC 6 H Meds: Medications Acetaminophen (Acetaminophen 325 Mg Tablet) 650 mg PO Q6HP PRN; Protocol PRN Reason: Per Pain Protocol/Fever > 101 Albuterol Sulfate (Albuterol Sulfate 2.5 Mg/3 Ml Nebulizer) 2.5 mg NEB Q2HP PRN PRN Reason: Shortness Of Breath Albuterol/Ipratropium (Ipratropium/Albuterol 3 Ml Ampul.Neb) 3 ml NEB Q4HP PRN PRN Reason: Shortness Of Breath Aspirin (Aspirin 81 Mg Tab.Chew) 81 mg PO BID [facility] Last Admin: 06/24/21 08:30 Dose: 81 mg Documented by: Bisacodyl (Bisacodyl 10 Mg Supp.Rect) 10 mg HI Q2-3DAYS PRN PRN Reason: Constipation Last Admin: 06/23/21 11:58 Dose: 10 mg Documented by: Buspirone HCl (Buspirone 15 Mg Tablet) 15 mg PO BID [facility] Last Admin: 06/24/21 08:30 Dose: 15 mg Documented by: Cyclobenzaprine HCl (Cyclobenzaprine 10 Mg Tablet) 10 mg PO TID [facility] Last Admin: 06/24/21 08:30 Dose: 10 mg Documented by: Diagnostic Test (Pha) (Accu-Chek 1 Each Strip) 1 each FS [facility] Last Admin: 06/24/21 07:32 Dose: 1 each Documented by: Duloxetine HCl (Duloxetine 30 Mg Capsule) 90 mg PO QDAY [facility] Last Admin: 06/24/21 08:30 Dose: 90 mg Documented by: Hydromorphone HCl (Hydromorphone 1 Mg/Ml Syringe) 0.5 - 2 mg IV Q2HP PRN; Protocol PRN Reason: Per Pain Protocol Insulin Human Lispro (Insulin Lispro 1 Unit/0.01 Ml Unit) 0 unit SQ [facility]; Protocol Last Admin: 06/24/21 07:33 Dose: 3 unit Documented by: Magnesium Hydroxide (Magnesium Hydroxide 30 Ml Oral.Susp) 30 ml PO BIDP PRN PRN Reason: Constipation Last Admin: 06/23/21 08:24 Dose: 30 ml Documented by: Metoprolol Tartrate (Metoprolol Tartrate 5 Mg/5 Ml Vial) 5 mg IV Q2HP PRN PRN Reason: Tachyarrhythmias HR>110 Last Admin: 06/22/21 08:28 Dose: 5 mg Documented by: Metoprolol Tartrate (Metoprolol Tartrate 50 Mg Tablet) 50 mg PO BID [facility] Last Admin: 06/24/21 08:30 Dose: 50 mg Documented by: Mupirocin (Mupirocin Oint 2% 22gm) 1 dose NARES BID [facility] Last Admin: 06/24/21 08:29 Dose: 1 dose Documented by: Ondansetron HCl (Ondansetron 4 Mg/2 Ml Vial) 4 mg IV Q4HP PRN PRN Reason: Nausea And Vomiting Oxycodone/Acetaminophen (Oxycodone/Apap 5/325mg Tablet) 1 - 2 tab PO Q4-6HP PRN; Protocol PRN Reason: Per Pain Protocol Last Admin: 06/24/21 05:50 Dose: 1 tab Documented by: Empagliflozin [ Jardiance] 10 Mg Tablet 1 dose PO DAILY [facility] Last Admin: 06/24/21 08:30 Dose: Not Given Documented by: Polyethylene Glycol (Polyethylene Glycol 3350 17 Gm Packet) 17 gm PO DAILYP PRN PRN Reason: Constipation Pregabalin (Pregabalin 150 Mg Capsule) 150 mg PO Q8H [facility] Last Admin: 06/24/21 05:08 Dose: 150 mg Documented by: Simvastatin (Simvastatin 10 Mg Tablet) 10 mg PO [facility] Last Admin: 06/23/21 20:58 Dose: 10 mg Documented by: Sodium Biphosphate/Sodium Phosphate (Fleets Adult Enema) 1 dose HI Q3-4DAYS PRN PRN Reason: Constipation Sodium Chloride (0.9 % Sodium Chloride 10 Ml Syringe) 10 ml IV Q8 [facility] Last Admin: 06/24/21 05:09 Dose: Not Given Documented by: Sodium Chloride (0.9 % Sodium Chloride 10 Ml Syringe) 10 ml IV Q8 [facility] Last Admin: 06/24/21 05:09 Dose: Not Given Documented by: Temazepam (Temazepam 15 Mg Capsule) 15 mg PO HSP PRN PRN Reason: Insomnia Throat Lozenges (Benzocaine/Menthol 1 Lozenge) 1 lozenge PO PRN PRN PRN Reason: Sore Throat Trazodone HCl (Trazodone Hcl 50 Mg Tablet) 50 mg PO [facility] Last Admin: 06/23/21 20:58 Dose: 50 mg Documented by: A/P Narrative A/P Narrative: A: #Hypoxia, chronic (does have O2@home) with acute component: 2/2 Atelectasis / and possibly pain medication -CTA no PE or infiltrate, b/l Atelectasis noted -0-1L NC on minimal O2, cont home regimen #Junctional tachy on admit then to Sinus Tach: improved #Ileus likely: #Hyponatremia: improved #HTN: good bp w/o norvasc, cont BB #DM 2: A1c 7 #Depression/anxiety: #h/o Vertebral Comp Fx's: #Acute Rib Fx's Right side: #Left distal femur fracture: s/p ORIF (06/21) #Anemia, acute on chronic post op: Plan: -IS, prn nebs -d/c home norvasc, cont BB -Continue home psych/Flexeril/Lyrica/simvastatin -SSI, -prn bladder scan/straight cath -ppx: ASA bid post op Time Spent With Patient Time: Total time spent is greater than 50% in coordination of care (as documented) at patient's floor/unit and/or counseling patient: QUALITY VTE Deep Vein Thrombosis/Pulmonary Embolism Present on Admission: No
== END 2021-06-24 18:10 | disposition home health service (06) | DRG 481 ==
LOC: ED 06:14 → MEDSUR 09:29
PROVIDERS: ADMIT Orthopaedic Surgery; ATTEND Orthopaedic Surgery

== ENCOUNTER 2021-06-25 01:05 | Observation (INO) ==
[2021-06-25] MEDS ORDERED: ONDANSETRON 4 MG/2 ML VIAL IV PRN ×2 (02:30→09:21)
[2021-06-25] MEDS ORDERED: morphine 2 MG/ML VIAL IV PRN (02:30)
[2021-06-25] MEDS ORDERED: ONDANSETRON 4 MG ODT TABLET SL PRN (02:50)
[2021-06-25 03:11] LABS: Basophils # (Auto) 0.04 K/mcL (0.00-0.30); Basophils % (Auto) 0.4 % (0.0-2.0); Eosinophils # (Auto) 0.18 K/mcL (0.00-0.70); Eosinophils % (Auto) 1.9 % (0.0-7.0); Hematocrit 25.3 % (34.1-44.9); Hemoglobin 7.8 g/dL (11.2-15.7); Mean Cell Volume 95.5 fL (80.0-100.0); Mean Corpuscular HGB Conc 30.8 g/dL (31.0-36.0); Monocytes # (Auto) 0.69 K/mcL (0.10-0.90); Monocytes % (Auto) 7.4 % (1.0-12.0); Neutrophils % (Auto) 76.3 % (38.0-78.0); Platelet Count 305 K/mcL (140-440); RBC 2.65 M/mcL (3.59-5.38); Red Cell Distribution Width 17.2 % (11.5-14.5); WBC 9.3 K/mcL (4.5-11.0)
[2021-06-25 03:26] LABS: Blood Urea Nitrogen 19 mg/dL (8-23); Calcium 9.2 mg/dL (8.6-10.4); Carbon Dioxide 25 mmol/L (22-30); Chloride 101 mmol/L (96-108); Glomerular Filtration Rate 90; Glucose 198 mg/dL (70-105)
[2021-06-25] MEDS: HYDROcodone/APAP 5/325MG TABLET PO PRN ×3 (04:08→19:41)
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
[2021-06-25] MEDS ORDERED: DEXTROSE 31 GM ORAL.SUSP PO PRN (09:21)
[2021-06-25] MEDS ORDERED: MAGNESIUM SULFATE 2 GM/50 ML BAG IV PRN (09:21)
[2021-06-25] MEDS ORDERED: SENNOSIDES 1 TABLET PO PRN (09:21)
[2021-06-25] MEDS ORDERED: POTASSIUM CHLORIDE 40 MEQ in DEXTROSE 5% IN WATER 500 ML IV PRN (09:21)
[2021-06-25] MEDS ORDERED: ACETAMINOPHEN 325 MG TABLET PO PRN (09:21)
[2021-06-25] MEDS ORDERED: DEXTROSE 50% 50 ML VIAL IV PRN (09:21)
[2021-06-25] MEDS ORDERED: POTASSIUM CHLORIDE 20 MEQ TABLET PO PRN ×2 (09:21)
[2021-06-25] MEDS ORDERED: POLYETHYLENE GLYCOL 3350 17 GM PACKET PO PRN (09:21)
[2021-06-25] MEDS: INSULIN LISPRO 1 UNIT/0.01 ML UNIT SQ SCH ×3 (11:39→20:33)
[2021-06-25] MEDS: 0.9 % SODIUM CHLORIDE 10 ML SYRINGE IV SCH ×2 (13:35→20:35)
[2021-06-25] MEDS: PREGABALIN 150 MG CAPSULE PO SCH ×2 (14:45→22:25)
[2021-06-25] MEDS: CYCLOBENZAPRINE 10 MG TABLET PO SCH ×2 (14:45→20:34)
[2021-06-25] MEDS: DOCUSATE SODIUM 100 MG CAPSULE PO SCH (20:34)
[2021-06-25] MEDS: ASPIRIN 81 MG TAB.CHEW PO SCH (20:34)
[2021-06-25] MEDS: busPIRone 15 MG TABLET PO SCH (20:34)
[2021-06-25] MEDS: traZODone HCL 50 MG TABLET PO SCH (20:34)
[2021-06-25] MEDS: LOVASTATIN 20 MG PO SCH (22:21)
[2021-06-26] MEDS: HYDROcodone/APAP 5/325MG TABLET PO PRN ×4 (04:15→23:09)
[2021-06-26] MEDS: PREGABALIN 150 MG CAPSULE PO SCH ×3 (05:53→21:08)
[2021-06-26] MEDS: 0.9 % SODIUM CHLORIDE 10 ML SYRINGE IV SCH ×3 (05:54→20:58)
[2021-06-26] MEDS: INSULIN LISPRO 1 UNIT/0.01 ML UNIT SQ SCH ×4 (07:29→21:07)
[2021-06-26] MEDS: METOPROLOL SUCCINATE 50 MG TAB.XL.24H PO SCH (08:40)
[2021-06-26] MEDS: VITAMIN D3 125 MCG TABLET PO SCH (08:40)
[2021-06-26] MEDS: DULoxetine 30 MG CAPSULE PO SCH (08:40)
[2021-06-26] MEDS: DOCUSATE SODIUM 100 MG CAPSULE PO SCH ×2 (08:40→21:08)
[2021-06-26] MEDS: CYCLOBENZAPRINE 10 MG TABLET PO SCH ×3 (08:40→21:08)
[2021-06-26] MEDS: ASPIRIN 81 MG TAB.CHEW PO SCH ×2 (08:41→21:07)
[2021-06-26] MEDS: busPIRone 15 MG TABLET PO SCH ×2 (08:41→21:08)
[2021-06-26] MEDS ORDERED: MELOXICAM 7.5 MG TABLET PO PRN (09:00)
[2021-06-26 11:17] LABS: POC Blood Urea Nitrogen 12 mg/dL (6-20); POC CO2 23 mmol/L (22-30); POC Calcium, Ionized 1.24 mmEq/L (1.16-1.32); POC Chloride 104 mEq/L (96-108); POC Creatinine 0.5 mg/dL (0.6-1.2); POC Glucose, Random 184 mg/dL (70-105); POC Hematocrit 26 % (36-48); POC Potassium 3.7 mEql/L (3.3-5.1); POC Sodium 139 mEq/L (133-145)
--- NOTE | 2021-06-26 15:33 | Internal Med Progress Note ---
SUBJECTIVE Subjective Patient information: Note initiated : 06/26/21 at 3:33 pm Service Date, if different from initiated Date: [] Patient: Anna Marie Montoya 65 y/o F admitted on 06/25/21 for unable to stay home. Chief Complaint: [] Interval history: Anna Marie Montoya is a 65-year-old female with a history of hypertension, type 2 diabetes mellitus, vertebral compression fractures, migraine headaches who was admitted on 06/19/2021 for a distal femur fracture that occurred during a mechanical fall at home. Soon after admission, the patient was found to be tachycardic and hypoxic. Hospital medicine was consulted for further evaluation. The patient was hemodynamically stable, heart rate about 120, the patient's respiratory rate is in the low 20s, she is requiring 4 L/min nasal cannula oxygen. The patient has been afebrile. CBC from 06/18/2021 did not show any leukocytosis, hemoglobin was normal, normal platelets. Renal function was normal, electrolytes were normal, the patient had a nonanion gap metabolic acidosis, hemoglobin A1c was 7.1. On exam, the patient has bilateral wheezes, no crackles appreciated. Showed junctional tachycardia. Portable 1 view chest x-ray showed clear lungs bilaterally. 3/ No overnight event or new complaints. Patient was on room air 91% when I saw her. Heart rate around 100. No coughing or shortness of breath. 3/3 Status post ORIF. Heart rate around 100. Will wean off oxygen if able today. Aggressive I-S use. Follow-up sodium. Patient passing gas but no BMs. Asked for laxatives. 3/ Patient seems to be doing well. Further information revealed that she does wear oxygen at home occasionally. Only requiring minimal here sometimes on room air sometimes requiring 1 L. Sodium improved. 06/24 Doing well no new complaints. discharged home with home health, came back to ED late at night. 06/26 Feels well, hemoglobin 7.8 today. No evidence of bleeding. Awaiting placement. Physical exam Head: Atraumatic, normal inspection. Eyes: normal appearance, no scleral icterus. Neck: full ROM Respiratory: On room air, no respiratory distress. Cardiovascular: normal rate and rhythm, S1, S2. GI/Abdominal: soft, nontender, no guarding. Extremities: Left lower extremity in brace. Neurological: CN II-XII intact, intact motor, intact sensation. Psychiatric: normal mood. Skin: warm, normal color Constitutional Vitals: Vital Signs Temp Pulse Resp BP Pulse Ox 98.0 F 93 H 14 119/76 93 06/26/21 12:00 06/26/21 12:00 06/26/21 12:00 06/26/21 12:00 06/26/21 12:00 Period Temp Pulse Resp BP Sys/Harrell Pulse Ox Last 24 Hr 97.6 F-99.0 F 68-120 14-26 115-142/66-115 90-96 Intake and Output 06/26/21 06/26/21 06/26/21 05:59 13:59 21:59 Intake Total 480 Output Total 700 400 Balance -700 80 Intake & Output: Intake & Output 06/26/21 06/26/21 06/26/21 05:59 13:59 21:59 Intake Total 480 Output Total 700 400 Balance -700 80 Intake: Oral 480 Output: Void Amount 700 400 Other: Meal Breakfast Percent of Meal Consumed 50% Feeding Ability Independent Urine Appearance Clear Urine Color Bright Yellow Light Jeanie Urine Odor Normal Stool Size Large Stool Color Brown Stool Consistency Formed # Bowel Movements 1 OBJ DATA Labs CBC & Chem 7: 06/25/21 02:33 06/25/21 02:33 Labs: Abnormal Lab Results 06/26/21 06/25/21 06/25/21 11:03 02:33 02:33 RBC 2.65 L Hgb 7.8 L Hct 25.3 L POC Hct 26 L MCHC 30.8 L RDW 17.2 H MPV 11.0 H Lymph % (Auto) 14.0 L Lymph # (Auto) 1.30 L POC Creatinine 0.5 L Glucose 198 H POC Glucose 184 H Meds: Medications Acetaminophen (Acetaminophen 325 Mg Tablet) 650 mg PO Q6HP PRN; Protocol PRN Reason: Per Pain Protocol/Fever > 101 Hydrocodone Bitart/Acetaminophen (Hydrocodone/Apap 5/325mg Tablet) 1 tab PO Q4HP PRN; Protocol PRN Reason: Per Pain Protocol Last Admin: 06/26/21 14:09 Dose: 1 tab Documented by: Aspirin (Aspirin 81 Mg Tab.Chew) 81 mg PO BID FITO Last Admin: 06/26/21 08:41 Dose: 81 mg Documented by: Buspirone HCl (Buspirone 15 Mg Tablet) 15 mg PO BID [facility] Last Admin: 06/26/21 08:41 Dose: 15 mg Documented by: Cyclobenzaprine HCl (Cyclobenzaprine 10 Mg Tablet) 10 mg PO TID [facility] Last Admin: 06/26/21 14:09 Dose: 10 mg Documented by: Dextrose (Dextrose 50% 50 Ml Vial) 0 ml IV UD PRN PRN Reason: Hypoglycemia Diagnostic Test (Pha) (Accu-Chek 1 Each Strip) 1 each FS [facility] Last Admin: 06/26/21 11:47 Dose: 1 each Documented by: Docusate Sodium (Docusate Sodium 100 Mg Capsule) 100 mg PO BID [facility] Last Admin: 06/26/21 08:40 Dose: 100 mg Documented by: Duloxetine HCl (Duloxetine 30 Mg Capsule) 90 mg PO QDAY [facility] Last Admin: 06/26/21 08:40 Dose: 90 mg Documented by: Glucose (Dextrose 31 Gm Oral.Susp) 15 gm PO PRN PRN PRN Reason: Hypoglycemia Potassium Chloride 40 meq/ (Dextrose) 520 mls @ 130 mls/hr IV UD PRN PRN Reason: Potassium < 3 Magnesium Sulfate (Magnesium Sulfate) 2 gm in 50 mls @ 50 mls/hr IV UD PRN PRN Reason: Magnesium </= 1.6 Insulin Human Lispro (Insulin Lispro 1 Unit/0.01 Ml Unit) 0 unit SQ [facility]; Protocol Last Admin: 06/26/21 11:47 Dose: 4 unit Documented by: Meloxicam (Meloxicam 7.5 Mg Tablet) 15 mg PO DAILYP PRN PRN Reason: Pain Metoprolol Succinate (Metoprolol Succinate 50 Mg Tab.Xl.24h) 50 mg PO QDAY [facility] Last Admin: 06/26/21 08:40 Dose: 50 mg Documented by: Ondansetron HCl (Ondansetron 4 Mg Odt Tablet) 4 mg SL Q8HP PRN PRN Reason: Nausea And Vomiting Ondansetron HCl (Ondansetron 4 Mg/2 Ml Vial) 4 mg IV Q4HP PRN PRN Reason: Nausea And Vomiting Empagliflozin [ Jardiance] 10 Mg Tablet 1 dose PO QDAY [facility] Last Admin: 06/26/21 08:41 Dose: Not Given Documented by: Lovastatin 20 Mg Tablet Extended Release 24 Hr 1 dose PO QHS [facility] Last Admin: 06/25/21 22:21 Dose: Not Given Documented by: Polyethylene Glycol (Polyethylene Glycol 3350 17 Gm Packet) 17 gm PO DAILYP PRN PRN Reason: Constipation Potassium Chloride (Potassium Chloride 20 Meq Tablet) 40 meq PO UD PRN PRN Reason: Potssium is 3-3.5 Potassium Chloride (Potassium Chloride 20 Meq Tablet) 40 meq PO UD PRN PRN Reason: Potassium < 3 Pregabalin (Pregabalin 150 Mg Capsule) 150 mg PO Q8 [facility] Last Admin: 06/26/21 13:16 Dose: 150 mg Documented by: Senna (Sennosides 1 Tablet) 2 tab PO DAILYP PRN PRN Reason: Constipation Sodium Chloride (0.9 % Sodium Chloride 10 Ml Syringe) 10 ml IV Q8 [facility] Last Admin: 06/26/21 13:17 Dose: 10 ml Documented by: Trazodone HCl (Trazodone Hcl 50 Mg Tablet) 50 mg PO [facility] Last Admin: 06/25/21 20:34 Dose: 50 mg Documented by: Vitamin D (Vitamin D3 125 Mcg Tablet) 125 mcg PO DAILY [facility] Last Admin: 06/26/21 08:40 Dose: 125 mcg Documented by: A/P Narrative A/P Narrative: A: #Generalized Weakness/deconditioning/debility #mild Hypoxia, chronic (does have O2@home) + Atelectasis: -CTA no PE or infiltrate, b/l Atelectasis noted -0-1L NC on minimal O2, cont home regimen #Junctional tachy on previous admit then changed to sinus Tach: pt says HR has always been fast #Hyponatremia: resolved #HTN: good bp w/o norvasc, cont BB #DM 2: A1c 7 #Depression/anxiety: #h/o Vertebral Comp Fx's: #Acute Rib Fx's Right side: #Left distal femur fracture: s/p ORIF (06/21) #Anemia, acute on chronic post op: Plan: -Follow hemoglobin -IS, prn nebs -d/c'd home norvasc, cont BB -Continue home psych/Flexeril/Lyrica/simvastatin -SSI -prn bladder scan/straight cath -ppx: ASA bid post op Time Spent With Patient Time: Total time spent is greater than 50% in coordination of care (as documented) at patient's floor/unit and/or counseling patient: QUALITY VTE Deep Vein Thrombosis/Pulmonary Embolism Present on Admission: No
[2021-06-26] MEDS: LOVASTATIN 20 MG PO SCH (21:16)
[2021-06-26] MEDS: traZODone HCL 50 MG TABLET PO SCH (21:16)
[2021-06-27] MEDS: PREGABALIN 150 MG CAPSULE PO SCH (05:58)
[2021-06-27] MEDS: 0.9 % SODIUM CHLORIDE 10 ML SYRINGE IV SCH (05:58)
[2021-06-27] MEDS: HYDROcodone/APAP 5/325MG TABLET PO PRN (07:40)
[2021-06-27] MEDS: INSULIN LISPRO 1 UNIT/0.01 ML UNIT SQ SCH (07:41)
[2021-06-27] MEDS: CYCLOBENZAPRINE 10 MG TABLET PO SCH (08:38)
[2021-06-27] MEDS: VITAMIN D3 125 MCG TABLET PO SCH (08:38)
[2021-06-27] MEDS: METOPROLOL SUCCINATE 50 MG TAB.XL.24H PO SCH (08:38)
[2021-06-27] MEDS: ASPIRIN 81 MG TAB.CHEW PO SCH (08:38)
[2021-06-27] MEDS: DULoxetine 30 MG CAPSULE PO SCH (08:39)
[2021-06-27] MEDS: DOCUSATE SODIUM 100 MG CAPSULE PO SCH (08:39)
[2021-06-27] MEDS: busPIRone 15 MG TABLET PO SCH (08:39)
--- NOTE | 2021-06-27 09:06 | Discharge Summary ---
Discharge Provider Provider Patient information: Note initiated : 06/27/21 at 9:04 am Service Date, if different from initiated Date: [] Patient: Anna Marie Montoya 65 y/o F admitted on 06/25/21 for unable to stay home. Chief Complaint: [] Date of admission: 06/25/21 03:29 Discharge date: 06/27/21 Primary care physician: Mary Landa Consults: 06/25/21 Consult to Physician [CONS] Stat Comment: Consulting Provider: Bhaskar Duggan Reason For Exam: Physician to Consult Discharge Meds Discharge Medications Home Medications buspirone 7.5 mg tablet 15 mg PO BID 10/19/19 [History Confirmed 06/25/21 Last Taken 06/17/21 21:00] duloxetine 30 mg capsule,delayed release (Cymbalta) 90 mg PO QDAY 10/19/19 [History Confirmed 06/25/21 Last Taken 06/17/21 09:00] lovastatin 20 mg tablet,extended release 24 hr 20 mg PO QHS 10/19/19 [History Confirmed 06/25/21 Last Taken 06/17/21 21:00] metoprolol succinate 50 mg tablet,extended release 24 hr 50 mg PO QDAY 03/29/20 [History Confirmed 06/25/21 Last Taken 06/17/21 09:00] cyclobenzaprine 10 mg tablet 10 mg PO TID 08/29/20 [History Confirmed 06/25/21 Last Taken 06/17/21 21:00] Vitamin D3 125 mcg PO DAILY 06/18/21 [History Confirmed 06/25/21 Last Taken 06/17/21 12:00] empagliflozin 10 mg tablet (Jardiance) 1 tab PO QDAY 06/18/21 [History Confirmed 06/25/21 Last Taken 06/17/21 09:00] pregabalin 150 mg capsule 1 cap PO Q8 06/18/21 [History Confirmed 06/25/21 Last Taken 06/17/21 21:00] trazodone 50 mg tablet 1 tab PO HS 06/18/21 [History Confirmed 06/25/21 Last Taken 06/17/21 21:00] meloxicam 15 mg tablet 15 mg PO QDAY PRN #1 tab 06/23/21 [Rx Confirmed 06/25/21 Last Taken Unknown] oxycodone-acetaminophen 10 mg-325 mg tablet 1 - 2 tab PO 5XD PRN #60 tab 06/24/21 [Rx Confirmed 06/25/21 Last Taken Unknown] oxycodone-acetaminophen 5 mg-325 mg tablet 1 - 2 tab PO Q4-6HP PRN #0 tab 06/24/21 [Rx Confirmed 06/25/21 Last Taken Unknown] aspirin 81 mg capsule 81 mg PO BID 22 Days #60 cap 06/27/21 [Rx Last Taken Unknown] COURSE Hospital Course Hospital course: Anna Marie Montoya is a 65-year-old female with a history of hypertension, type 2 diabetes mellitus, vertebral compression fractures, migraine headaches who was admitted on 06/19/2021 for a distal femur fracture that occurred during a mechanical fall at home. Soon after admission, the patient was found to be tachycardic and hypoxic. Hospital medicine was consulted for further evaluation. The patient was hemodynamically stable, heart rate about 120, the patient's respiratory rate is in the low 20s, she is requiring 4 L/min nasal cannula oxygen. The patient has been afebrile. CBC from 06/18/2021 did not show any leukocytosis, hemoglobin was normal, normal platelets. Renal function was normal, electrolytes were normal, the patient had a nonanion gap metabolic acidosis, hemoglobin A1c was 7.1. On exam, the patient has bilateral wheezes, no crackles appreciated. Showed junctional tachycardia. Portable 1 view chest x-ray showed clear lungs bilaterally. 06/21 No overnight event or new complaints. Patient was on room air 91% when I saw her. Heart rate around 100. No coughing or shortness of breath. 3 Status post ORIF. Heart rate around 100. Will wean off oxygen if able today. Aggressive I-S use. Follow-up sodium. Patient passing gas but no BMs. Asked for laxatives. 06/23 Patient seems to be doing well. Further information revealed that she does wear oxygen at home occasionally. Only requiring minimal here sometimes on room air sometimes requiring 1 L. Sodium improved. 06/24 Doing well no new complaints. discharged home with home health, came back to ED late at night. 06/26 Feels well, hemoglobin 7.8 today. No evidence of bleeding. Awaiting placement. 06/27 Discharged to SNF. Physical exam Head: Atraumatic, normal inspection. Eyes: normal appearance, no scleral icterus. Neck: full ROM Respiratory: On room air, no respiratory distress. Cardiovascular: normal rate and rhythm, S1, S2. GI/Abdominal: soft, nontender, no guarding. Extremities: Left lower extremity in brace. Neurological: CN II-XII intact, intact motor, intact sensation. Psychiatric: normal mood. Skin: warm, normal color Discharge diagnosis: Left femur fracture Time Spent with Patient Time attestation: Total time spent providing and/or coordinating discharge services: EXAM Constitutional Vitals: Temp Pulse Resp BP Pulse Ox 96.6 F L 94 H 22 141/83 92 06/27/21 07:40 06/27/21 07:40 06/27/21 07:40 06/27/21 07:40 06/27/21 07:40 Discharge Data Data Completed and Pending Labs on day of discharge: Labs from last 24 hours 06/27/21 06/26/21 05:39 11:03 Hgb 7.8 L POC Hct 26 L POC Sodium 139 POC Potassium 3.7 POC Chloride 104 POC Total CO2 23 POC BUN 12 POC Creatinine 0.5 L POC Glucose 184 H POC WB Ioniz Calcium 1.24 Discharge Plan Patient/Caregiver Discharge Instructions Activity: as per physical therapy and non-weight bearing Diet: Consistent Carbohydrate Activity Restrictions/Additional Instructions: Nonweight bearing to left lower extremity until further notified by orthopedic surgery. Prescriptions: New aspirin 81 mg capsule 81 mg PO BID 22 Days Qty: 60 0RF Continued buspirone 7.5 mg Tablet 15 mg PO BID 0RF Rx Instructions: at noon lovastatin 20 mg Tablet Extended Release 24 Hr 20 mg PO QHS 0RF duloxetine [Cymbalta] 30 mg Capsule,Delayed Release(Dr/Ec) 90 mg PO QDAY 0RF metoprolol succinate 50 mg Tablet Extended Release 24 Hr 50 mg PO QDAY 0RF cyclobenzaprine 10 mg Tablet 10 mg PO TID 0RF trazodone 50 mg tablet 1 tab PO HS 0RF pregabalin 150 mg capsule 1 cap PO Q8 0RF Jardiance 10 mg tablet 1 tab PO QDAY 0RF Vitamin D3 125 mcg PO DAILY 0RF meloxicam 15 mg Tablet 15 mg PO QDAY PRN (Reason: pain) Qty: 1 0RF oxycodone-acetaminophen 5-325 mg Tablet 1 - 2 tab PO Q4-6HP PRN (Reason: Per Pain Protocol) Qty: 0 0RF oxycodone-acetaminophen 10-325 mg Tablet 1 - 2 tab PO 5XD PRN (Reason: Pain) Qty: 60 0RF Discontinued aspirin [Adult Aspirin] 81 mg Tablet,Chewable 81 mg PO QDAY 0RF Other Ambulatory Orders: OT Discharge Order (Routine) Location: None Selected Ordered By: Kana Mcguire Physical Therapy at Discharge - General (Routine) Location: None Selected Ordered By: Kana Mcguire Follow Up Plan Follow up with: Mary Landa ARNP [Primary Care Provider] - Patient Disposition: Xfer SNF Prognosis: Fair Rehab Potential: Fair I certify that the patient requires SNF services: Yes Overall status at discharge: patient is progressing back to baseline Discharge Orders: Discharge Order (Routine); Ordered 06/27/21 Ordered By: Kana Mcguire QUALITY VTE Deep Vein Thrombosis/Pulmonary Embolism Present on Admission: No
== END 2021-06-27 10:40 ==
LOC: MEDSUR 01:05 → ED 01:05 → MEDSUR 03:29
PROVIDERS: ADMIT Internal Medicine; ATTEND Internal Medicine

== ENCOUNTER 2021-10-02 13:02 | Inpatient (IN) ==
[2021-10-02] MEDS ORDERED: morphine 2 MG/ML VIAL IV ONE (13:28)
--- NOTE | 2021-10-02 14:47 | Cat Scan Report ---
CLINICAL INFORMATION: Trauma-fall COMPARISON: 03/02/2021 TECHNIQUE: 2.5 mm helical slices were obtained in the skull base to vertex. Following reconstruction, axial reformatted images were reviewed at bone and parenchymal windows. The exam was performed using radiation dose optimization techniques including, but not limited to, automated exposure control, adjustment of the mA and/or kV according to patient size and use of iterative reconstruction technique. FINDINGS: The ventricles, sulci, fissures, and cisterns are symmetrically enlarged compatible with mild age-related atrophy. No extra-axial fluid collections are identified. Mild patchy chronic ischemic changes, in the deep cerebral white matter, are expected for age. There are 3-4 small remote cortical-based in the left inferior cerebellar vermis. There is no hemorrhage, mass effect, or edema. Bone windows show no osseous abnormality. IMPRESSION: Mild atrophy and chronic ischemic changes in the deep cerebral white matter-expected for age. 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 No intracerebral hemorrhage or other acute finding Interpreted and Authenticated by: Sarmad Lovell 10/02/21
--- NOTE | 2021-10-02 14:48 | XRay Report ---
CLINICAL INFORMATION: Trauma COMPARISON: None. FINDINGS: Sacroiliac and hip joints are normal in width and alignment without arthritic change. Acute intertrochanteric fracture left hip results in moderate coxa talia angulation. Distal fragment is displaced 1 cm medially and 5 mm posteriorly.. Soft tissues are unremarkable. IMPRESSION: Mildly displaced and angulated acute intertrochanteric fracture-left hip Interpreted and Authenticated by: Sarmad Lovell 10/02/21
--- NOTE | 2021-10-02 14:49 | XRay Report ---
CLINICAL INFORMATION: Trauma COMPARISON: 08/06/2021. TECHNIQUE: PA and Lateral views FINDINGS: The heart size, mediastinum and pulmonary vessels are unremarkable. The lungs are clear. There are no effusions. A few old fractures posterior lateral ribs bilaterally seen as before. IMPRESSION: Normal chest. Interpreted and Authenticated by: Sarmad Lovell 10/02/21
[2021-10-02] MEDS ORDERED: morphine 4 MG/ML VIAL IV PRN (14:52)
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
[2021-10-02] MEDS ORDERED: ONDANSETRON 4 MG/2 ML VIAL IV ONE (15:44)
--- NOTE | 2021-10-02 16:37 | XRay Report ---
. CLINICAL INFORMATION: Injury COMPARISON: 08/11/2021. FINDINGS: Total knee prosthesis is anatomically aligned without loosening or infection. Chronic impacted and mildly displaced oblique fracture of the distal femoral metaphysis is been transfixed by lateral plate and screws. There is incomplete osseous union laterally and no evidence of osseous union of the central and lateral aspect of the fracture line. Moderate soft tissue swelling seen in this region. IMPRESSION: ORIF oblique fracture distal femoral diaphysis metaphysis. It is largely nonunified. A refracture of this region is not excluded Interpreted and Authenticated by: Sarmad Lovell 10/02/21
[2021-10-02 16:52] LABS: Basophils # (Auto) 0.05 K/mcL (0.00-0.30); Basophils % (Auto) 0.4 % (0.0-2.0); Eosinophils # (Auto) 0.02 K/mcL (0.00-0.70); Eosinophils % (Auto) 0.2 % (0.0-7.0); Hematocrit 38.3 % (34.1-44.9); Hemoglobin 11.5 g/dL (11.2-15.7); Lymphocytes # (Auto) 0.97 K/mcL (1.50-4.80); Lymphocytes % (Auto) 8.4 % (15.5-49.0); Mean Cell Volume 80.8 fL (80.0-100.0); Mean Platelet Volume 10.4 fL (7.4-10.4); Monocytes # (Auto) 0.41 K/mcL (0.10-0.90); Monocytes % (Auto) 3.6 % (1.0-12.0); Neutrophils % (Auto) 87.4 % (38.0-78.0); Platelet Count 248 K/mcL (140-440); RBC 4.74 M/mcL (3.59-5.38); Red Cell Distribution Width 17.3 % (11.5-14.5); WBC 11.5 K/mcL (4.5-11.0)
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
[2021-10-02] MEDS ORDERED: ACETAMINOPHEN 325 MG TABLET PO PRN (18:26)
[2021-10-02] MEDS ORDERED: hydrALAZINE 20 MG/ML VIAL IV PRN (18:26)
[2021-10-02] MEDS ORDERED: ONDANSETRON 4 MG/2 ML VIAL IV PRN (18:26)
[2021-10-02] MEDS ORDERED: IPRATROPIUM/ALBUTEROL 3 ML AMPUL.NEB NEB PRN (18:26)
[2021-10-02] MEDS ORDERED: DEXTROSE 31 GM ORAL.SUSP PO PRN (18:26)
[2021-10-02] MEDS ORDERED: ZOLPIDEM 5 MG TABLET PO PRN (18:26)
[2021-10-02] MEDS ORDERED: hydrOXYzine 10 MG TABLET PO PRN (18:26)
[2021-10-02] MEDS ORDERED: DEXTROSE 50% 50 ML VIAL IV PRN (18:26)
[2021-10-02] MEDS: 0.9 % SODIUM CHLORIDE 1,000 ML IV SCH (18:54)
[2021-10-02] MEDS: HYDROmorphone 0.5 MG/0.5 ML SYRINGE IV PRN (18:54)
[2021-10-02] MEDS ORDERED: HYDROmorphone 0.5 MG/0.5 ML SYRINGE ONE (18:57)
[2021-10-02] MEDS: 0.9 % SODIUM CHLORIDE 10 ML SYRINGE IV SCH (19:00)
[2021-10-02] MEDS ORDERED: LIDOCAINE 5% OINT TUBE 35GM TOPICAL PRN (19:08)
[2021-10-02] MEDS: HYDROcodone/APAP 5/325MG TABLET PO PRN (19:20)
[2021-10-02] MEDS: ACETAMINOPHEN 500 MG TABLET PO PRN (19:21)
[2021-10-02] MEDS: CYCLOBENZAPRINE 10 MG TABLET PO SCH (19:21)
[2021-10-02 19:42] LABS: ALT/SGPT 7 U/L (<40); AST/SGOT 11 U/L (<32); Albumin 4.4 gm/dL (3.2-5.2); Albumin/Globulin Ratio 1.5 (1.0-2.3); Alkaline Phosphatase 83 U/L (39-117); Bilirubin,Total 0.2 mg/dL (0.1-1.0); Blood Urea Nitrogen 14 mg/dL (8-23); Calcium 9.7 mg/dL (8.6-10.4); Carbon Dioxide 22 mmol/L (22-30); Chloride 103 mmol/L (96-108); Glomerular Filtration Rate 77; Glucose 154 mg/dL (70-105)
[2021-10-02] MEDS: SENNOSIDES 1 TABLET PO SCH (20:32)
[2021-10-02] MEDS: DOCUSATE SODIUM 100 MG CAPSULE PO SCH (20:32)
[2021-10-02] MEDS: busPIRone 15 MG TABLET PO SCH (20:32)
[2021-10-02] MEDS: PREGABALIN 150 MG CAPSULE PO SCH (20:32)
[2021-10-02] MEDS: INSULIN LISPRO 1 UNIT/0.01 ML UNIT SQ SCH (22:45)
[2021-10-03] MEDS: HYDROcodone/APAP 5/325MG TABLET PO PRN ×2 (01:35→08:05)
[2021-10-03] MEDS: HYDROmorphone 0.5 MG/0.5 ML SYRINGE IV PRN ×2 (02:10→18:42)
[2021-10-03] MEDS: 0.9 % SODIUM CHLORIDE 1,000 ML IV SCH ×2 (04:01→17:01)
[2021-10-03] MEDS: CYCLOBENZAPRINE 10 MG TABLET PO SCH ×4 (04:02→22:15)
[2021-10-03] MEDS: PREGABALIN 150 MG CAPSULE PO SCH ×3 (05:56→22:15)
[2021-10-03] MEDS: 0.9 % SODIUM CHLORIDE 10 ML SYRINGE IV SCH ×3 (05:56→22:16)
[2021-10-03 07:46] LABS: Basophils # (Auto) 0.02 K/mcL (0.00-0.30); Basophils % (Auto) 0.3 % (0.0-2.0); Eosinophils # (Auto) 0.05 K/mcL (0.00-0.70); Eosinophils % (Auto) 0.8 % (0.0-7.0); Hematocrit 32.4 % (34.1-44.9); Hemoglobin 9.6 g/dL (11.2-15.7); Lymphocytes % (Auto) 17.1 % (15.5-49.0); Mean Corpuscular HGB Conc 29.6 g/dL (31.0-36.0); Mean Platelet Volume 10.8 fL (7.4-10.4); Monocytes # (Auto) 0.59 K/mcL (0.10-0.90); Monocytes % (Auto) 9.1 % (1.0-12.0); Neutrophils % (Auto) 72.7 % (38.0-78.0); Platelet Count 217 K/mcL (140-440); RBC 3.95 M/mcL (3.59-5.38); Red Cell Distribution Width 17.6 % (11.5-14.5); WBC 6.5 K/mcL (4.5-11.0)
[2021-10-03] MEDS ORDERED: SCOPOLAMINE 1 PATCH PATCH TOPICAL PRN (08:00)
[2021-10-03] MEDS: busPIRone 15 MG TABLET PO SCH ×3 (08:05→22:15)
[2021-10-03] MEDS: METOPROLOL SUCCINATE 50 MG TAB.XL.24H PO SCH (08:05)
[2021-10-03] MEDS: DOCUSATE SODIUM 100 MG CAPSULE PO SCH ×2 (08:05→22:15)
[2021-10-03] MEDS: amLODIPine 10 MG TABLET PO SCH (08:05)
[2021-10-03] MEDS: DULoxetine 30 MG CAPSULE PO SCH (08:06)
[2021-10-03] MEDS: SIMVASTATIN 10 MG TABLET PO SCH (08:09)
[2021-10-03 08:19] LABS: ALT/SGPT 6 U/L (<40); AST/SGOT 10 U/L (<32); Albumin 3.7 gm/dL (3.2-5.2); Albumin/Globulin Ratio 1.6 (1.0-2.3); Alkaline Phosphatase 71 U/L (39-117); Bilirubin,Total 0.2 mg/dL (0.1-1.0); Blood Urea Nitrogen 13 mg/dL (8-23); Calcium 8.9 mg/dL (8.6-10.4); Carbon Dioxide 21 mmol/L (22-30); Chloride 107 mmol/L (96-108); Globulin 2.3 gm/dL (2.2-3.7); Glomerular Filtration Rate 90; Glucose 145 mg/dL (70-105)
[2021-10-03] MEDS: INSULIN LISPRO 1 UNIT/0.01 ML UNIT SQ SCH ×5 (08:59→23:33)
[2021-10-03] MEDS ORDERED: LOVASTATIN 20 MG TABLET PO SCH (09:00)
--- NOTE | 2021-10-03 11:01 | Internal Med Progress Note ---
SUBJECTIVE Subjective Patient information: Note initiated : 10/03/21 at 11:00 am Service Date, if different from initiated Date: [] Patient: Anna Marie Montoya a 66 y/o F admitted on 10/02/21 for fall, left hip pain. Chief Complaint: [] Interval history: Ms. 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 She fractured her left knee in May 2021, and she has been ambulating with a walker since. Earlier today when she was ambulating with a walker, she was tangled and lost her balance and had a mechanical fall and she landed on her left hip and she also hurt her head. She is currently complaining of 8.5 out of 10 left knee pain with radiations to her thigh, aching, constant. She is also complained of mild headaches. She denies any chest pain or shortness of breath or palpitations. No LOC. Left hip x-ray showing closed mildly displaced intertrochanteric fracture of the left hip. Labs pending. Dr. Paez orthopedic surgeons already consulted who plan to do surgery tomorrow. 10/03: There was no major overnight event. Patient is currently complaining of 9 out of 10 sharp aching constant pain of her left thigh extending to her left knee. Pending surgery by orthopedic surgeon Dr. Paez later this morning. Constitutional Vitals: Vital Signs Temp Pulse Resp BP Pulse Ox 36.2 C 89 14 122/80 91 10/03/21 07:19 10/03/21 07:19 10/03/21 07:19 10/03/21 07:19 10/03/21 07:19 Period Temp Pulse Resp BP Sys/Harrell Pulse Ox Last 24 Hr 35.8 C-36.9 C 83-106 14-20 93-172/58-96 87-96 Intake and Output 10/02/21 10/03/21 10/03/21 21:59 05:59 13:59 Intake Total 1552 Output Total 675 Balance 877 Weight 93.259 kg Intake & Output: Intake & Output 10/02/21 10/03/21 10/03/21 21:59 05:59 13:59 Intake Total 1552 Output Total 675 Balance 877 Weight 93.259 kg Intake: IV 912 Sodium Chloride 0.9% 1,000 ml @ 912 100 mls/hr IV .Q10H [facility] Rx#: [id number] Oral 640 Output: Urine Catheter Amount 675 Other: Urine Appearance Clear Clear Urine Color Bright Yellow Bright Yellow Head Head exam: Present atraumatic and normal inspection Eye Eye exam: Present normal appearance ENT ENT exam: Present mucous membranes moist, normal exam and normal external ear exam Neck Neck exam: Present normal inspection Respiratory Respiratory exam: Present normal respiratory exam Cardiovascular Cardiovascular exam: Present normal rate and rhythm GI/Abdominal GI/Abdominal exam: Present normal bowel sounds Extremities Exam Extremities exam: Present normal inspection and tenderness; Absent full ROM Additional comments: Active and passive ROMs limited by pain Back Exam Back exam: Present normal inspection Neurological Exam Neurological exam: Present alert and oriented X3 Skin Skin exam: Present intact and warm OBJ DATA Labs CBC & Chem 7: 10/03/21 05:08 10/03/21 05:08 Labs: Abnormal Lab Results 10/03/21 10/03/21 10/02/21 05:08 05:08 18:37 WBC Hgb 9.6 L Hct 32.4 L MCH 24.3 L MCHC 29.6 L RDW 17.6 H MPV 10.8 H Neut % (Auto) Lymph % (Auto) Lymph # (Auto) 1.10 L Absolute Neutrophils Carbon Dioxide 21 L Glucose 145 H 154 H Hemoglobin A1c 10/02/21 10/02/21 16:15 16:15 WBC 11.5 H Hgb Hct MCH 24.3 L MCHC 30.0 L RDW 17.3 H MPV Neut % (Auto) 87.4 H Lymph % (Auto) 8.4 L Lymph # (Auto) 0.97 L Absolute Neutrophils 10.09 H Carbon Dioxide Glucose Hemoglobin A1c 8.0 H Meds: Medications Acetaminophen (Acetaminophen 500 Mg Tablet) 1,000 mg PO Q8HP PRN; Protocol PRN Reason: Pain Last Admin: 10/02/21 19:21 Dose: 1,000 mg Documented by: Hydrocodone Bitart/Acetaminophen (Hydrocodone/Apap 5/325mg Tablet) 1 tab PO Q6HP PRN PRN Reason: Pain Last Admin: 10/03/21 08:05 Dose: 1 tab Documented by: Albuterol/Ipratropium (Ipratropium/Albuterol 3 Ml Ampul.Neb) 3 ml NEB Q4HRT PRN PRN Reason: Wheezing Amlodipine Besylate (Amlodipine 10 Mg Tablet) 10 mg PO QDAY [facility] Last Admin: 10/03/21 08:05 Dose: 10 mg Documented by: Buspirone HCl (Buspirone 15 Mg Tablet) 15 mg PO TID [facility] Last Admin: 10/03/21 08:05 Dose: 15 mg Documented by: Cyclobenzaprine HCl (Cyclobenzaprine 10 Mg Tablet) 10 mg PO TID [facility] Last Admin: 10/03/21 08:08 Dose: Not Given Documented by: Dextrose (Dextrose 50% 50 Ml Vial) 0 ml IV UD PRN PRN Reason: Per Sliding Scale Diagnostic Test (Pha) (Accu-Chek 1 Each Strip) 1 each FS [facility] Last Admin: 10/03/21 08:58 Dose: 1 each Documented by: Diagnostic Test (Pha) (Accu-Chek 1 Each Strip) 1 each FS UD PRN PRN Reason: pre-op Stop: 10/03/21 11:00 Docusate Sodium (Docusate Sodium 100 Mg Capsule) 100 mg PO BID [facility] Last Admin: 10/03/21 08:05 Dose: 100 mg Documented by: Duloxetine HCl (Duloxetine 30 Mg Capsule) 90 mg PO QDAY [facility] Last Admin: 10/03/21 08:06 Dose: 90 mg Documented by: Glucose (Dextrose 31 Gm Oral.Susp) 15 gm PO PRN PRN PRN Reason: Hypoglycemia Hydralazine HCl (Hydralazine 20 Mg/Ml Vial) 10 mg IV Q4-6HP PRN PRN Reason: Hypertension Hydromorphone HCl (Hydromorphone 0.5 Mg/0.5 Ml Syringe) 0.5 mg IV Q2HP PRN; Protocol PRN Reason: Per Pain Protocol Last Admin: 10/03/21 02:10 Dose: 0.5 mg Documented by: Hydroxyzine HCl (Hydroxyzine 10 Mg Tablet) 10 mg PO TID PRN PRN Reason: Anxiety Sodium Chloride (Sodium Chloride 0.9%) 1,000 mls @ 100 mls/hr IV .Q10H [facility] Last Admin: 10/03/21 04:01 Dose: 100 mls/hr Documented by: Insulin Human Lispro (Insulin Lispro 1 Unit/0.01 Ml Unit) 0 unit SQ [facility]; Protocol Last Admin: 10/03/21 08:59 Dose: Not Given Documented by: Lidocaine (Lidocaine 5% Oint Tube 35gm) 1 dose TOPICAL QIDP PRN PRN Reason: Pain Metoprolol Succinate (Metoprolol Succinate 50 Mg Tab.Xl.24h) 50 mg PO QDAY [facility] Last Admin: 10/03/21 08:05 Dose: 50 mg Documented by: Ondansetron HCl (Ondansetron 4 Mg/2 Ml Vial) 4 mg IV Q6HP PRN PRN Reason: Nausea And Vomiting Alpha Lipoic Acid (600 Mg Capsule) 1 dose PO DAILY [facility] Last Admin: 10/03/21 08:08 Dose: Not Given Documented by: Pregabalin (Pregabalin 150 Mg Capsule) 150 mg PO Q8 [facility] Last Admin: 10/03/21 05:56 Dose: Not Given Documented by: Scopolamine (Scopolamine 1 Patch Patch) 1 patch TOPICAL PREOP PRN PRN Reason: Nausea And Vomiting Stop: 10/03/21 23:00 Senna (Sennosides 1 Tablet) 2 tab PO HS [facility] Last Admin: 10/02/21 20:32 Dose: Not Given Documented by: Simvastatin (Simvastatin 10 Mg Tablet) 10 mg PO DAILY [facility] Last Admin: 10/03/21 08:09 Dose: 10 mg Documented by: Sodium Chloride (0.9 % Sodium Chloride 10 Ml Syringe) 10 ml IV Q8 [facility] Last Admin: 10/03/21 05:56 Dose: Not Given Documented by: Zolpidem Tartrate (Zolpidem 5 Mg Tablet) 5 mg PO HSP PRN PRN Reason: Insomnia A/P Assessment and plan (1) Diabetes 1.5, managed as type 2: Assessment and plan: Assessment and Plans: 1> Intertrochanteric fracture of the left hip: Inpatient med surg Consulting Dr. Paez orthopedic surgeon for planned surgery today Bed rest NPO after midnight Tylenol PRN fever/mild pain [place] PRN moderate pain Dilaudid IV PRN sevre pain Physical therapy 2. T1.5DM: HgA1c Hold oral hypoglycemics SSI AC HS Accu Chek AC HS Hypoglycemia protocol Diabetic diet (NPO after midnight) Lyrica 3. Essential hypertension: Treat pain associated with hip fracture, see #1 Amlodipine Metoprolol Hydralazine IV PRN SBP>=180 and/or DBP>=110mmHg 4. Anemia, normocytic normochromic: cbc w/ auto diff in the morning to trend H/H GI ppx: not currently indicated DVT ppx: SCDs Code status: Full Prognosis: stable Disposition: inpatient med surg; PT Status: Acute Comment: Blood sugar is running high 246 (2) Anemia, normocytic normochromic: Status: Acute (3) Intertrochanteric fracture of left femur: Status: Acute (4) Essential hypertension: Status: Acute Time Spent With Patient Time: Total time spent is greater than 50% in coordination of care (as documented) at patient's floor/unit and/or counseling patient: QUALITY VTE Deep Vein Thrombosis/Pulmonary Embolism Present on Admission: No
[2021-10-03] MEDS ORDERED: ceFAZolin 2 GM in DEXTROSE 5% IN WATER 50 ML IV SCH ×2 (12:15→15:30)
[2021-10-03] MEDS ORDERED: VANCOMYCIN 1,500 MG in 0.9 % SODIUM CHLORIDE 500 ML IV SCH (12:30)
--- NOTE | 2021-10-03 12:43 | EKG ---
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
[2021-10-03] MEDS ORDERED: PROPOFOL 500 MG/50 ML BOTTLE IV ONE (12:47)
[2021-10-03] MEDS ORDERED: GLYCOPYRROLATE 0.2 MG/ML VIAL IV ONE (12:47)
[2021-10-03] MEDS ORDERED: TRANEXAMIC ACID 1,000 MG/10 ML VIAL ONE (12:47)
[2021-10-03] MEDS ORDERED: LIDOCAINE HCL/PF 100 MG/5 ML SYRINGE IV ONE (12:47)
[2021-10-03] MEDS ORDERED: ENALAPRILAT 1.25 MG/ML VIAL IV ONE (12:47)
[2021-10-03] MEDS ORDERED: ONDANSETRON 4 MG/2 ML VIAL ONE (12:47)
[2021-10-03] MEDS ORDERED: DEXAMETHASONE 4 MG/ML VIAL ONE (12:47)
[2021-10-03] MEDS ORDERED: ROPIVACAINE HCL/PF 20 ML VIAL IJ ONE (12:47)
[2021-10-03] MEDS ORDERED: PHENYLephrine 1 MG/10 ML SYRINGE (ANEST) ONE (12:47)
[2021-10-03] MEDS ORDERED: KETAMINE 50 MG/ML Syringe (ANEST) IV ONE (12:47)
[2021-10-03] MEDS ORDERED: ePHEDrine 50 MG/5 ML SYRINGE (ANEST) IV ONE (12:47)
[2021-10-03] MEDS ORDERED: ACETAMINOPHEN 1,000 MG/100 ML BAG IV ONE (14:57)
[2021-10-03] MEDS ORDERED: METHOCARBAMOL 1,000 MG/10 ML VIAL IV PRN (14:57)
[2021-10-03] MEDS ORDERED: MEPERIDINE 25 MG/ML VIAL IV PRN (14:57)
[2021-10-03] MEDS ORDERED: fentaNYL 100 MCG/2 ML VIAL IV PRN (14:57)
[2021-10-03] MEDS ORDERED: ONDANSETRON 4 MG/2 ML VIAL IV PRN (14:57)
[2021-10-03] MEDS ORDERED: IPRATROPIUM/ALBUTEROL 3 ML AMPUL.NEB NEB PRN (14:57)
[2021-10-03] MEDS ORDERED: VANCOMYCIN 1 GM VIAL TOPICAL SCH (15:00)
--- NOTE | 2021-10-03 15:06 | Brief Operative Note ---
Brief Operative Note Date of procedure: 10/03/21 Pre-op diagnosis: left hip peritrochanteric femur fracture Post-op diagnosis: same Procedure: operative fixation of left hip peritrochanteric femur fracture hardware removal left femur Grafts/Implants: Yes Anesthesia: GETA Findings: osteoportic comminuted peritroch fracture Complications: none Surgeon: Debo Paez Bulb Tester: Gabby Bower Estimated blood loss (cc): 500 Specimens Removed/Pathology: none sent Condition: stable Disposition: PACU
[2021-10-03] MEDS ORDERED: TRANEXAMIC ACID 1,000 MG/10 ML VIAL IV ONE (15:16)
--- NOTE | 2021-10-03 15:19 | XRay Report ---
CLINICAL INFORMATION: Overall reduction internal fixation left hip fracture COMPARISON: None. FINDINGS: Intraoperative images show intertrochanteric fracture of the left hip reduced anatomic alignment transfixed by gamma nail. Total fluoroscopy time 1.8 minutes. IMPRESSION: ORIF Intertrochanteric fracture left hip anatomic alignment Interpreted and Authenticated by: Sarmad Lovell 10/03/21
--- NOTE | 2021-10-03 16:30 | XRay Report ---
CLINICAL INFORMATION: Follow-up left intertrochanteric fracture COMPARISON: None. FINDINGS: Intertrochanteric fracture of the left hip has been reduced to anatomic alignment and transfixed by gamma nail. The SI and hip joints normal in width alignment without arthritic change. Soft tissue swelling over the surgical site seen. IMPRESSION: ORIF intertrochanteric fracture left hip. Anatomic alignment Interpreted and Authenticated by: Sarmad Lovell 10/03/21
--- NOTE | 2021-10-03 16:32 | Operative Note ---
DATE OF OPERATION: 10/03/2021 PREOPERATIVE DIAGNOSIS: Left peritrochanteric femur fracture. POSTOPERATIVE DIAGNOSIS: Left peritrochanteric femur fracture. PROCEDURE PERFORMED: 1. Operative fixation of left peritrochanteric femur fracture with cephalomedullary device. 2. Femur hardware removal and exchange of the distal femoral plate screws. SURGEON: Debo Paez M.D. GRID MAKER: Gabby Bower PA-C. The PA's assistance was required for the safe and efficient completion of the entire case. This provider's expertise and technical skill were required throughout the case. The PA assisted with preoperative coordination, intraoperative retraction, wound closure, dressing and splint application, as well as postoperative documentation and care coordination. ANESTHESIA: General. INTRAVENOUS FLUIDS: 1500 mL lactated Ringer's. ESTIMATED BLOOD LOSS: 500 mL. TOURNIQUET TIME: Not applicable. ANTIBIOTICS: 2 grams Ancef and 1 gram vancomycin. IMPLANTS: Intermediate 125-degree TFNA nail and two 14 mm Winsted screws in the proximal femoral plate, one locking and one nonlocking, removal of 3 screws. INTRAOPERATIVE COMPLICATIONS: None apparent. PATHOLOGY/LAB: None. INDICATIONS FOR PROCEDURE: The patient is a 66-year-old female who had a ground-level fall at home resulting in a peritrochanteric left femur fracture. She has undergone operative fixation of periprosthetic distal femur fracture approximately [address] Betts. Subsequently, she has been working with therapy and just got back home about 3 weeks ago when she was working with therapy and fell. I discussed the diagnosis with her as well as operative treatment options with operative treatment given that this would allow her to stabilize and overall improve the alignment. I discussed the risks, benefits, and postoperative expectations and recovery process, and she elected to proceed in that fashion. DESCRIPTION OF PROCEDURE: The patient was met in the preoperative holding area where site was verified and marked with the patient's input. She was taken back to the operating room, where she underwent successful anesthesia. She was placed supine on the Elmer table with both extremities in padded boots and a padded perineal post in place. Her right lower extremity was placed in down position. Large fluoroscopy was used to place traction and slight rotation on the leg to reduce and overall improve the fracture alignment. She had a comminuted medial calcar as well as apex anterior deformity of the neck, which appeared to be easily corrected with A to P direction force. She was then prepped and draped in the usual sterile fashion with ChloraPrep and shower drape. Surgical timeout was performed to verify the patient's identity, correct procedure being performed, and correct extremity being operated on. Everybody was in agreement. At this point, I elected to utilize an intermediate nail as this would pass the proximal aspect of the plate and allow some overlapping. Given that, I made an exposure over the lateral aspect of the mid femur at the level of the proximal screws, visualized on fluoroscopy. Created an incision through the prior incision, and the IT band had not healed and this rent was easily identified. I lifted the vastus lateralis anteriorly and dissected down to the lateral plate. I freed it off proximally and removed the proximal two screws. This was irrigated and I placed a lap. At this point, I centered over the hip proximally. I palpated the greater trochanter and then made a small incision just approximately 4 to 5 fingerbreadths proximal to the greater trochanter. She had central obesity making exposure a bit more difficult. I had taped her abdomen out of the way as well. The fracture itself was quite comminuted. I placed the guidewire without power. Given how comminuted it was as well as a bit of a reverse oblique type of fracture, I did make a larger exposure down and through the fascia proximally down to the greater trochanter itself. The lateral cortex was in reduced fashion. Given that, I used a curved awl to place the guidewire.The greater trochanter was fairly comminuted. I placed a ball tip guidewire and then utilized an 11 mm nail. I placed the nail and the third proximal screw on the plate laterally was still blocking adequate placement. Given that, I took that screw out as well and subsequently placed the nail in order for the lag screw to be in the center position of the femoral neck and into the head center-center position. The head itself was in significant varus deformity already. With inline traction, it improved some and I kept this inline traction; however, I could not abduct the leg any further given I could not access given her body habitus proximally. I placed the guidewire for the lag screw through the percutaneous guide system after making an incision in the skin. I placed it center-center position on AP and lateral. The fluoroscopy could not get well-defined lines. We could see the head, but the neck proximal femur junction part would continue to be washed out and if we went the opposite way, it would be too dark and not able to be visualized. In the head itself, I knew was not perforating on multiple views. Given that, I elected to use this pin placement and placed two antirotational guidewires through their system given that this was comminuted and was a basicervical and an intertrochanteric variation. At that point, drilled for the screw and placed a screw in the subchondral on multiple views, AP and lateral. Guide pins were then removed. I did compress the set screw tight and backed off a 1/4 turn and then compressed the fracture just a touch. This will most likely go on to collapse a bit over time. Ttightened the set screw. At that point, the distal interlock was then placed, verified, and I placed two additional screws in the plate laterally. One was a locking screw and the other one was nonlocking. Given that, I was unable to put this locking screw in the second to top hole, but it had good purchase the nonlocking screw did. The wound was then copiously irrigated. Fluoroscopy images were taken of AP and lateral of the hip and thigh. The wound was copiously irrigated. I placed vancomycin powder deep in the wound. IT band was closed at the mid aspect of the leg as well as proximally with a Stratafix running fashion, the fat layer with 2-0 Vicryl, and the skin and subcutaneous tissue with 3-0 Vicryl and skin with verona. The leg was then cleaned and dried. Xeroform, fluffs and Medipore tape was placed to secure the dressing. The patient awoke from anesthesia and was transferred to PACU in stable condition. POSTOPERATIVE PLAN: The patient will be admitted back to the floor for postoperative recovery and likely transition to a rehab center. Toe touch weight bearing for 4-6 weeks. MAGGY:killian Job ID: [id number] Doc ID: [id number] MD KAYCEE Morales
[2021-10-03] MEDS: HYDROcodone/APAP 5/325MG TABLET PO SCH ×3 (17:06→23:26)
[2021-10-03] MEDS: LACTATED RINGERS 1,000 ML IV SCH ×2 (17:07→18:43)
[2021-10-03] MEDS: ceFAZolin 1 GM VIAL IV SCH (19:47)
[2021-10-03] MEDS: SENNOSIDES 1 TABLET PO SCH (22:15)
[2021-10-03] MEDS: ACETAMINOPHEN 500 MG TABLET PO PRN (23:26)
[2021-10-04] MEDS: LACTATED RINGERS 1,000 ML IV SCH (04:29)
[2021-10-04] MEDS: ceFAZolin 1 GM VIAL IV SCH (04:30)
[2021-10-04] MEDS: HYDROcodone/APAP 5/325MG TABLET PO SCH (04:30)
[2021-10-04] MEDS: 0.9 % SODIUM CHLORIDE 1,000 ML IV SCH ×2 (04:34→09:47)
--- NOTE | 2021-10-04 06:20 | Orthopedic Progress Note ---
SUBJECTIVE Subjective Patient information: Note initiated : 10/04/21 at 6:16 am Service Date, if different from initiated Date: [] Patient: Anna Marie Montoya 66 y/o F admitted on 10/02/21 for fall, left hip pain. Chief Complaint: [no acute events overnight. pain controlled] Constitutional Vitals: Vital Signs Temp Pulse Resp BP Pulse Ox 97.8 F 101 H 16 106/60 92 10/04/21 04:26 10/04/21 04:26 10/04/21 04:26 10/04/21 04:26 10/04/21 04:26 Period Temp Pulse Resp BP Sys/Harrell Pulse Ox Last 24 Hr 96.9 F-97.9 F 64-104 82-129/54-92 90-99 Intake and Output 10/03/21 10/04/21 10/04/21 21:59 05:59 13:59 Intake Total 3160 903 Output Total 865 1975 Balance 2295 -1072 Weight 214 lb 4.8 oz Intake & Output: Intake & Output 10/03/21 10/04/21 10/04/21 21:59 05:59 13:59 Intake Total 3160 903 Output Total 865 1975 Balance 2295 -1072 Weight 214 lb 4.8 oz Intake: IV 1720 733 Sodium Chloride 0.9% 1,000 ml @ 1000 100 mls/hr IV .Q10H [facility] Rx#: [id number] Lactated Ringers 1,000 ml @ 75 120 733 mls/hr IV .[id number] [facility] Rx#: [id number] Vancomycin 1,500 mg In Sodium 500 Chloride 0.9% 500 ml @ 333.3 mls/hr IV PREOP [facility] Rx#: [id number] Oral 240 170 IV - Manual Only 1200 Output: Urine Catheter Amount 750 1975 Estimated Blood Loss 115 Other: Meal Dinner Percent of Meal Consumed 100% Feeding Ability Independent Urine Appearance Clear Clear Uretheral ([place]) Clear Urine Color Pale Bright Yellow Uretheral ([place]) Pale Urine Odor Normal Additional findings Additional findings: general: awake, appropriate. one 1L NC left hip: dressing with strikethrough and reinforce. foot is warm well perfused. OBJ DATA Labs CBC & Chem 7: 10/03/21 05:08 10/03/21 05:08 Labs: Abnormal Lab Results 10/03/21 10/03/21 10/02/21 05:08 05:08 18:37 WBC Hgb 9.6 L Hct 32.4 L MCH 24.3 L MCHC 29.6 L RDW 17.6 H MPV 10.8 H Neut % (Auto) Lymph % (Auto) Lymph # (Auto) 1.10 L Absolute Neutrophils Carbon Dioxide 21 L Glucose 145 H 154 H Hemoglobin A1c 10/02/21 10/02/21 16:15 16:15 WBC 11.5 H Hgb Hct MCH 24.3 L MCHC 30.0 L RDW 17.3 H MPV Neut % (Auto) 87.4 H Lymph % (Auto) 8.4 L Lymph # (Auto) 0.97 L Absolute Neutrophils 10.09 H Carbon Dioxide Glucose Hemoglobin A1c 8.0 H Meds: Medications Acetaminophen (Acetaminophen 500 Mg Tablet) 1,000 mg PO Q8HP PRN; Protocol PRN Reason: Pain Last Admin: 10/03/21 23:26 Dose: 1,000 mg Documented by: Hydrocodone Bitart/Acetaminophen (Hydrocodone/Apap 5/325mg Tablet) 1 - 2 tab PO Q4 PRN PRN Reason: pain Albuterol/Ipratropium (Ipratropium/Albuterol 3 Ml Ampul.Neb) 3 ml NEB Q4HRT PRN PRN Reason: Wheezing Amlodipine Besylate (Amlodipine 10 Mg Tablet) 10 mg PO QDAY [facility] Last Admin: 10/03/21 08:05 Dose: 10 mg Documented by: Buspirone HCl (Buspirone 15 Mg Tablet) 15 mg PO TID [facility] Last Admin: 10/03/21 22:15 Dose: 15 mg Documented by: Cyclobenzaprine HCl (Cyclobenzaprine 10 Mg Tablet) 10 mg PO TID [facility] Last Admin: 10/03/21 22:15 Dose: 10 mg Documented by: Dextrose (Dextrose 50% 50 Ml Vial) 0 ml IV UD PRN PRN Reason: Per Sliding Scale Diagnostic Test (Pha) (Accu-Chek 1 Each Strip) 1 each FS ACHS [facility] Last Admin: 10/03/21 23:32 Dose: 1 each Documented by: Docusate Sodium (Docusate Sodium 100 Mg Capsule) 100 mg PO BID [facility] Last Admin: 10/03/21 22:15 Dose: 100 mg Documented by: Duloxetine HCl (Duloxetine 30 Mg Capsule) 90 mg PO QDAY [facility] Last Admin: 10/03/21 08:06 Dose: 90 mg Documented by: Enoxaparin Sodium (Enoxaparin 40 Mg/0.4 Ml Syringe) 40 mg SQ DAILY [facility] Glucose (Dextrose 31 Gm Oral.Susp) 15 gm PO PRN PRN PRN Reason: Hypoglycemia Hydralazine HCl (Hydralazine 20 Mg/Ml Vial) 10 mg IV Q4-6HP PRN PRN Reason: Hypertension Hydroxyzine HCl (Hydroxyzine 10 Mg Tablet) 10 mg PO TID PRN PRN Reason: Anxiety Sodium Chloride (Sodium Chloride 0.9%) 1,000 mls @ 100 mls/hr IV .Q10H [facility] Last Admin: 10/04/21 04:34 Dose: Not Given Documented by: Lactated Ringer's (Lactated Ringers) 1,000 mls @ 75 mls/hr IV .[id number] [facility] Last Admin: 10/04/21 04:29 Dose: 75 mls/hr Documented by: Insulin Human Lispro (Insulin Lispro 1 Unit/0.01 Ml Unit) 0 unit SQ [facility]; Protocol Last Admin: 10/03/21 23:33 Dose: 3 unit Documented by: Lidocaine (Lidocaine 5% Oint Tube 35gm) 1 dose TOPICAL QIDP PRN PRN Reason: Pain Methocarbamol (Methocarbamol 750 Mg Tablet) 500 mg PO Q6HP PRN PRN Reason: Muscle Spasm Metoprolol Succinate (Metoprolol Succinate 50 Mg Tab.Xl.24h) 50 mg PO QDAY [facility] Last Admin: 10/03/21 08:05 Dose: 50 mg Documented by: Ondansetron HCl (Ondansetron 4 Mg/2 Ml Vial) 4 mg IV Q6HP PRN PRN Reason: Nausea And Vomiting Alpha Lipoic Acid (600 Mg Capsule) 1 dose PO DAILY [facility] Last Admin: 10/03/21 08:08 Dose: Not Given Documented by: Pregabalin (Pregabalin 150 Mg Capsule) 150 mg PO Q8 [facility] Last Admin: 10/03/21 22:15 Dose: 150 mg Documented by: Senna (Sennosides 1 Tablet) 2 tab PO HS [facility] Last Admin: 10/03/21 22:15 Dose: 2 tab Documented by: Simvastatin (Simvastatin 10 Mg Tablet) 10 mg PO DAILY [facility] Last Admin: 10/03/21 08:09 Dose: 10 mg Documented by: Sodium Chloride (0.9 % Sodium Chloride 10 Ml Syringe) 10 ml IV Q8 [facility] Last Admin: 10/03/21 22:16 Dose: Not Given Documented by: Zolpidem Tartrate (Zolpidem 5 Mg Tablet) 5 mg PO HSP PRN PRN Reason: Insomnia Last Admin: 10/03/21 23:27 Dose: 5 mg Documented by: A/P Assessment and plan (1) Intertrochanteric fracture of left femur: Assessment and plan: POD 1 s/p operative fixation of left peritroch fracture, exchange of screws of distal femoral plate -- toe touch weight bearing x6 weeks -----PT/OT -- oral pain medications- d/c dilaudid and hydro changed to prn -- h/h pending this AM -- will change dressing tomorrow -- Prophy: lovenox, IS, mobilization, foot pumps -- Dispo: will likely need senior care given the weight bearing status. Did discussed with daughter treatment of the osteoporosis which can be started 2 weeks after fracture fixation. Status: Acute Time Spent With Patient Time: Total time spent is greater than 50% in coordination of care (as documented) at patient's floor/unit and/or counseling patient:
[2021-10-04 06:30] LABS: Eosinophils % (Auto) 0 % (0.0-7.0); Hematocrit 26.4 % (34.1-44.9); Lymphocytes % (Auto) 10.4 % (15.5-49.0); Mean Cell Volume 81.2 fL (80.0-100.0); Mean Corpuscular HGB Conc 30.3 g/dL (31.0-36.0); Mean Platelet Volume 10.7 fL (7.4-10.4); Monocytes % (Auto) 6.3 % (1.0-12.0); Neutrophils % (Auto) 83.3 % (38.0-78.0); Platelet Count 169 K/mcL (140-440); RBC 3.25 M/mcL (3.59-5.38); Red Cell Distribution Width 17.4 % (11.5-14.5); WBC 9.9 K/mcL (4.5-11.0)
[2021-10-04 06:31] LABS: Basophils # (Auto) 0 K/mcL (0.00-0.30); Basophils % (Auto) 0 % (0.0-2.0); Eosinophils # (Auto) 0 K/mcL (0.00-0.70); Lymphocytes # (Auto) 1.03 K/mcL (1.50-4.80); Monocytes # (Auto) 0.62 K/mcL (0.10-0.90)
[2021-10-04 06:50] LABS: ALT/SGPT 6 U/L (<40); AST/SGOT 10 U/L (<32); Albumin 3.5 gm/dL (3.2-5.2); Albumin/Globulin Ratio 1.7 (1.0-2.3); Alkaline Phosphatase 60 U/L (39-117); Bilirubin,Total < 0.2 mg/dL (0.1-1.0); Blood Urea Nitrogen 14 mg/dL (8-23); Calcium 8.6 mg/dL (8.6-10.4); Carbon Dioxide 19 mmol/L (22-30); Chloride 103 mmol/L (96-108); Globulin 2.1 gm/dL (2.2-3.7); Glomerular Filtration Rate 90; Glucose 161 mg/dL (70-105)
[2021-10-04] MEDS: SIMVASTATIN 10 MG TABLET PO SCH (07:43)
[2021-10-04] MEDS: DULoxetine 30 MG CAPSULE PO SCH (07:43)
[2021-10-04] MEDS: METOPROLOL SUCCINATE 50 MG TAB.XL.24H PO SCH (07:43)
[2021-10-04] MEDS: busPIRone 15 MG TABLET PO SCH ×3 (07:43→21:20)
[2021-10-04] MEDS: DOCUSATE SODIUM 100 MG CAPSULE PO SCH ×2 (07:43→21:20)
[2021-10-04] MEDS: CYCLOBENZAPRINE 10 MG TABLET PO SCH ×3 (07:43→21:20)
[2021-10-04] MEDS: 0.9 % SODIUM CHLORIDE 10 ML SYRINGE IV SCH ×3 (07:44→21:20)
[2021-10-04] MEDS: HYDROcodone/APAP 5/325MG TABLET PO PRN ×4 (07:44→21:21)
[2021-10-04] MEDS: amLODIPine 10 MG TABLET PO SCH (07:44)
[2021-10-04] MEDS: ENOXAPARIN 40 MG/0.4 ML SYRINGE SQ SCH (07:45)
[2021-10-04] MEDS: PREGABALIN 150 MG CAPSULE PO SCH ×3 (08:30→21:21)
[2021-10-04] MEDS: METHOCARBAMOL 750 MG TABLET PO PRN ×2 (10:40→12:50)
[2021-10-04] MEDS ORDERED: morphine 4 MG/ML VIAL IV PRN (10:48)
--- NOTE | 2021-10-04 10:53 | Internal Med Progress Note ---
SUBJECTIVE Subjective Patient information: Note initiated : 10/04/21 at 10:48 am Service Date, if different from initiated Date: [] Patient: Anna Marie Montoya a 66 y/o F admitted on 10/02/21 for fall, left hip pain. Chief Complaint: [] Interval history: Ms. 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 She fractured her left knee in May 2021, and she has been ambulating with a walker since. Earlier today when she was ambulating with a walker, she was tangled and lost her balance and had a mechanical fall and she landed on her left hip and she also hurt her head. She is currently complaining of 8.5 out of 10 left knee pain with radiations to her thigh, aching, constant. She is also complained of mild headaches. She denies any chest pain or shortness of breath or palpitations. No LOC. Left hip x-ray showing closed mildly displaced intertrochanteric fracture of the left hip. Labs pending. Dr. Paez orthopedic surgeons already consulted who plan to do surgery tomorrow. 10/03: There was no major overnight event. Patient is currently complaining of 9 out of 10 sharp aching constant pain of her left thigh extending to her left knee. Pending surgery by orthopedic surgeon Dr. Paez later this morning. 10/04: Status post operative fixation of the left peritrochanteric fracture of her left hip by orthopedic surgeon Dr. Paez on 10/03. Patient tolerated the procedure well. Patient is currently complaining of moderate to severe pain of her left hip. She is also committing of muscle cramping and spasm of that same region. She woke with physical therapist earlier this morning. Was seen in occupations. Dilaudid stopped by Dr. Paez however I would start the patient's on IV morphine as needed for severe pain. Continue Flexeril as needed for muscle spasm. Continue physical therapy evaluations and treatments and will work on SNF placement. Toe-touch weightbearing x6 weeks. Continue Lovenox as DVT prophylaxis. Treatment for osteoporosis can be started 2 weeks after the surgery. Constitutional Vitals: Vital Signs Temp Pulse Resp BP Pulse Ox 36.4 C 99 H 16 133/79 93 10/04/21 07:27 10/04/21 07:27 10/04/21 07:27 10/04/21 07:27 10/04/21 07:27 Period Temp Pulse Resp BP Sys/Harrell Pulse Ox Last 24 Hr 36.1 C-36.6 C 64-104 82-133/54-92 90-99 Intake and Output 10/03/21 10/04/21 10/04/21 21:59 05:59 13:59 Intake Total 3160 903 398 Output Total 865 1974 Balance 2295 -1072 398 Weight 97.205 kg Intake & Output: Intake & Output 10/03/21 10/04/21 10/04/21 21:59 05:59 13:59 Intake Total 3160 903 398 Output Total 865 1974 Balance 2295 -1072 398 Weight 97.205 kg Intake: IV 1720 733 398 Sodium Chloride 0.9% 1,000 ml @ 1000 100 mls/hr IV .Q10H [facility] Rx#: [id number] Lactated Ringers 1,000 ml @ 75 120 733 398 mls/hr IV .[id number] [facility] Rx#: [id number] Vancomycin 1,500 mg In Sodium 500 Chloride 0.9% 500 ml @ 333.3 mls/hr IV PREOP [facility] Rx#: [id number] Oral 240 170 IV - Manual Only 1200 Output: Urine Catheter Amount 750 1975 Estimated Blood Loss 115 Other: Meal Dinner Percent of Meal Consumed 100% Feeding Ability Independent Urine Appearance Clear Clear Uretheral ([place]) Clear Urine Color Pale Bright Yellow Uretheral ([place]) Pale Urine Odor Normal Head Head exam: Present atraumatic and normal inspection Eye Eye exam: Present normal appearance ENT ENT exam: Present mucous membranes moist, normal exam and normal external ear exam Neck Neck exam: Present normal inspection Respiratory Respiratory exam: Present normal respiratory exam Cardiovascular Cardiovascular exam: Present normal rate and rhythm GI/Abdominal GI/Abdominal exam: Present normal bowel sounds Extremities Exam Extremities exam: Absent full ROM or normal inspection Additional comments: Left hip active and passive ROMs limited by pain Left lateral hip covered by surgical dressing Back Exam Back exam: Present normal inspection Neurological Exam Neurological exam: Present alert and oriented X3 Skin Skin exam: Present intact and warm OBJ DATA Labs CBC & Chem 7: 10/04/21 05:16 10/04/21 05:15 Labs: Abnormal Lab Results 10/04/21 10/04/21 10/03/21 05:16 05:15 05:08 WBC RBC 3.25 L Hgb 8.0 L Hct 26.4 L MCH 24.6 L MCHC 30.3 L RDW 17.4 H MPV 10.7 H Neut % (Auto) 83.3 H Lymph % (Auto) 10.4 L Lymph # (Auto) 1.03 L Absolute Neutrophils 8.24 H Carbon Dioxide 19 L 21 L Glucose 161 H 145 H Hemoglobin A1c Total Protein 5.6 L Globulin 2.1 L 10/03/21 10/02/21 10/02/21 05:08 18:37 16:15 WBC RBC Hgb 9.6 L Hct 32.4 L MCH 24.3 L MCHC 29.6 L RDW 17.6 H MPV 10.8 H Neut % (Auto) Lymph % (Auto) Lymph # (Auto) 1.10 L Absolute Neutrophils Carbon Dioxide Glucose 154 H Hemoglobin A1c 8.0 H Total Protein Globulin 10/02/21 16:15 WBC 11.5 H RBC Hgb Hct MCH 24.3 L MCHC 30.0 L RDW 17.3 H MPV Neut % (Auto) 87.4 H Lymph % (Auto) 8.4 L Lymph # (Auto) 0.97 L Absolute Neutrophils 10.09 H Carbon Dioxide Glucose Hemoglobin A1c Total Protein Globulin Meds: Medications Acetaminophen (Acetaminophen 500 Mg Tablet) 1,000 mg PO Q8HP PRN; Protocol PRN Reason: Pain Last Admin: 10/03/21 23:26 Dose: 1,000 mg Documented by: Hydrocodone Bitart/Acetaminophen (Hydrocodone/Apap 5/325mg Tablet) 1 - 2 tab PO Q4HP PRN PRN Reason: pain Last Admin: 10/04/21 07:44 Dose: 1 tab Documented by: Albuterol/Ipratropium (Ipratropium/Albuterol 3 Ml Ampul.Neb) 3 ml NEB Q4HRT PRN PRN Reason: Wheezing Amlodipine Besylate (Amlodipine 10 Mg Tablet) 10 mg PO QDAY [facility] Last Admin: 10/04/21 07:44 Dose: 10 mg Documented by: Buspirone HCl (Buspirone 15 Mg Tablet) 15 mg PO TID [facility] Last Admin: 10/04/21 07:43 Dose: 15 mg Documented by: Cyclobenzaprine HCl (Cyclobenzaprine 10 Mg Tablet) 10 mg PO TID [facility] Last Admin: 10/04/21 07:43 Dose: 10 mg Documented by: Dextrose (Dextrose 50% 50 Ml Vial) 0 ml IV UD PRN PRN Reason: Per Sliding Scale Diagnostic Test (Pha) (Accu-Chek 1 Each Strip) 1 each FS [facility] Last Admin: 10/04/21 08:29 Dose: 1 each Documented by: Docusate Sodium (Docusate Sodium 100 Mg Capsule) 100 mg PO BID [facility] Last Admin: 10/04/21 07:43 Dose: 100 mg Documented by: Duloxetine HCl (Duloxetine 30 Mg Capsule) 90 mg PO QDAY [facility] Last Admin: 10/04/21 07:43 Dose: 90 mg Documented by: Enoxaparin Sodium (Enoxaparin 40 Mg/0.4 Ml Syringe) 40 mg SQ DAILY [facility] Last Admin: 10/04/21 07:45 Dose: 40 mg Documented by: Glucose (Dextrose 31 Gm Oral.Susp) 15 gm PO PRN PRN PRN Reason: Hypoglycemia Hydralazine HCl (Hydralazine 20 Mg/Ml Vial) 10 mg IV Q4-6HP PRN PRN Reason: Hypertension Hydroxyzine HCl (Hydroxyzine 10 Mg Tablet) 10 mg PO TID PRN PRN Reason: Anxiety Sodium Chloride (Sodium Chloride 0.9%) 1,000 mls @ 100 mls/hr IV .Q10H [facility] Last Admin: 10/04/21 09:47 Dose: Not Given Documented by: Insulin Human Lispro (Insulin Lispro 1 Unit/0.01 Ml Unit) 0 unit SQ [facility]; Protocol Last Admin: 10/03/21 23:33 Dose: 3 unit Documented by: Lidocaine (Lidocaine 5% Oint Tube 35gm) 1 dose TOPICAL QIDP PRN PRN Reason: Pain Methocarbamol (Methocarbamol 750 Mg Tablet) 500 mg PO Q6HP PRN PRN Reason: Muscle Spasm Last Admin: 10/04/21 10:40 Dose: 500 mg Documented by: Metoprolol Succinate (Metoprolol Succinate 50 Mg Tab.Xl.24h) 50 mg PO QDAY [facility] Last Admin: 10/04/21 07:43 Dose: 50 mg Documented by: Ondansetron HCl (Ondansetron 4 Mg/2 Ml Vial) 4 mg IV Q6HP PRN PRN Reason: Nausea And Vomiting Alpha Lipoic Acid (600 Mg Capsule) 1 dose PO DAILY [facility] Last Admin: 10/04/21 08:42 Dose: Not Given Documented by: Pregabalin (Pregabalin 150 Mg Capsule) 150 mg PO Q8 [facility] Last Admin: 10/04/21 08:30 Dose: Not Given Documented by: Senna (Sennosides 1 Tablet) 2 tab PO HS [facility] Last Admin: 10/03/21 22:15 Dose: 2 tab Documented by: Simvastatin (Simvastatin 10 Mg Tablet) 10 mg PO DAILY [facility] Last Admin: 10/04/21 07:43 Dose: 10 mg Documented by: Sodium Chloride (0.9 % Sodium Chloride 10 Ml Syringe) 10 ml IV Q8 [facility] Last Admin: 10/04/21 07:44 Dose: Not Given Documented by: Zolpidem Tartrate (Zolpidem 5 Mg Tablet) 5 mg PO HSP PRN PRN Reason: Insomnia Last Admin: 10/03/21 23:27 Dose: 5 mg Documented by: A/P Assessment and plan (1) Diabetes 1.5, managed as type 2: Assessment and plan: Assessment and Plans: 1> Intertrochanteric fracture of the left hip: Inpatient med surg S/p operative fixation of the left peritrochanteric fracture exchange of screws of the distal femoral plate by orthopedic surgeon Dr. Paez 10/03 Tylenol PRN fever/mild pain [place] PRN moderate pain Morphine IV PRN sevre pain Physical therapy, recs. SNF placement Lovenox Toe-touch weightbearing for 6 weeks Okay to start treatment for osteoporosis 2 weeks after surgery 2. T1.5DM: HgA1c 8.0 Hold oral hypoglycemics SSI AC HS Accu Chek AC HS Hypoglycemia protocol Diabetic diet [place] 3. Essential hypertension: Treat pain associated with hip fracture, see #1 Amlodipine Metoprolol Hydralazine IV PRN SBP>=180 and/or DBP>=110mmHg 4. Anemia, normocytic normochromic: cbc w/ auto diff in the morning to trend H/H GI ppx: not currently indicated DVT ppx: Lovenox Code status: Full Prognosis: stable Disposition: inpatient med surg; PT Status: Acute Comment: Blood sugar is running high 246 (2) Anemia, normocytic normochromic: Status: Acute (3) Intertrochanteric fracture of left femur: Status: Acute (4) Essential hypertension: Status: Acute Time Spent With Patient Time: Total time spent is greater than 50% in coordination of care (as documented) at patient's floor/unit and/or counseling patient: QUALITY VTE Deep Vein Thrombosis/Pulmonary Embolism Present on Admission: No
[2021-10-04] MEDS: INSULIN LISPRO 1 UNIT/0.01 ML UNIT SQ SCH ×4 (11:50→21:29)
[2021-10-04] MEDS: SENNOSIDES 1 TABLET PO SCH (21:20)
[2021-10-05] MEDS: HYDROcodone/APAP 5/325MG TABLET PO PRN ×3 (01:19→09:17)
[2021-10-05] MEDS: PREGABALIN 150 MG CAPSULE PO SCH (05:00)
[2021-10-05] MEDS: 0.9 % SODIUM CHLORIDE 10 ML SYRINGE IV SCH (05:01)
[2021-10-05 06:33] LABS: Basophils # (Auto) 0.03 K/mcL (0.00-0.30); Basophils % (Auto) 0.4 % (0.0-2.0); Eosinophils # (Auto) 0.05 K/mcL (0.00-0.70); Eosinophils % (Auto) 0.6 % (0.0-7.0); Hematocrit 25.8 % (34.1-44.9); Hemoglobin 7.7 g/dL (11.2-15.7); Lymphocytes # (Auto) 1.37 K/mcL (1.50-4.80); Lymphocytes % (Auto) 16.6 % (15.5-49.0); Mean Cell Volume 81.6 fL (80.0-100.0); Mean Corpuscular HGB Conc 29.8 g/dL (31.0-36.0); Mean Platelet Volume 10.9 fL (7.4-10.4); Monocytes # (Auto) 0.78 K/mcL (0.10-0.90); Monocytes % (Auto) 9.5 % (1.0-12.0); Neutrophils % (Auto) 72.9 % (38.0-78.0); Platelet Count 171 K/mcL (140-440); RBC 3.16 M/mcL (3.59-5.38); Red Cell Distribution Width 18.3 % (11.5-14.5); WBC 8.3 K/mcL (4.5-11.0)
--- NOTE | 2021-10-05 06:39 | Orthopedic Progress Note ---
SUBJECTIVE Subjective Patient information: Note initiated : 10/05/21 at 6:34 am Service Date, if different from initiated Date: [] Patient: Anna Marie Montoya 66 y/o F admitted on 10/02/21 for fall, left hip pain. Chief Complaint: [No acute issues overnight. Denies shortness of breath. States heart rate is always high.] Constitutional Vitals: Vital Signs Temp Pulse Resp BP Pulse Ox 97.9 F 100 H 14 120/81 90 10/05/21 03:47 10/05/21 03:47 10/05/21 03:47 10/05/21 03:47 10/05/21 03:47 Period Temp Pulse Resp BP Sys/Harrell Pulse Ox Last 24 Hr 97.5 F-98.1 F 87-105 14-16 108-133/62-81 90-94 Intake and Output 10/04/21 10/05/21 10/05/21 21:59 05:59 13:59 Intake Total 842 250 Output Total 1710 Balance 842 -1460 Weight 213 lb 3.2 oz Intake & Output: Intake & Output 10/04/21 10/05/21 10/05/21 21:59 05:59 13:59 Intake Total 842 250 Output Total 1710 Balance 842 -1460 Weight 213 lb 3.2 oz Intake: IV 602 Lactated Ringers 1,000 ml @ 75 602 mls/hr IV .[id number] [facility] Rx#: [id number] Oral 240 250 Output: Urine Catheter Amount 1710 Other: Meal Dinner Percent of Meal Consumed 50% Feeding Ability Assist with Tray Set Up Urine Appearance Clear Uretheral ([place]) Clear Urine Color Bright Yellow Uretheral ([place]) Pale Additional findings Additional findings: General: alert oriented and appropriate left hip: dressing removed, no acute/new drainage. incision is healing well without evidence of infection. foot warm well perfused. OBJ DATA Labs CBC & Chem 7: 10/05/21 05:19 10/04/21 05:15 Labs: Abnormal Lab Results 10/05/21 10/04/21 10/04/21 05:19 05:16 05:15 WBC RBC 3.16 L 3.25 L Hgb 7.7 L 8.0 L Hct 25.8 L 26.4 L MCH 24.4 L 24.6 L MCHC 29.8 L 30.3 L RDW 18.3 H 17.4 H MPV 10.9 H 10.7 H Neut % (Auto) 83.3 H Lymph % (Auto) 10.4 L Lymph # (Auto) 1.37 L 1.03 L Absolute Neutrophils 8.24 H Carbon Dioxide 19 L Glucose 161 H Hemoglobin A1c Total Protein 5.6 L Globulin 2.1 L 10/03/21 10/03/21 10/02/21 05:08 05:08 18:37 WBC RBC Hgb 9.6 L Hct 32.4 L MCH 24.3 L MCHC 29.6 L RDW 17.6 H MPV 10.8 H Neut % (Auto) Lymph % (Auto) Lymph # (Auto) 1.10 L Absolute Neutrophils Carbon Dioxide 21 L Glucose 145 H 154 H Hemoglobin A1c Total Protein Globulin 10/02/21 10/02/21 16:15 16:15 WBC 11.5 H RBC Hgb Hct MCH 24.3 L MCHC 30.0 L RDW 17.3 H MPV Neut % (Auto) 87.4 H Lymph % (Auto) 8.4 L Lymph # (Auto) 0.97 L Absolute Neutrophils 10.09 H Carbon Dioxide Glucose Hemoglobin A1c 8.0 H Total Protein Globulin Meds: Medications Acetaminophen (Acetaminophen 500 Mg Tablet) 1,000 mg PO Q8HP PRN; Protocol PRN Reason: Pain Last Admin: 10/03/21 23:26 Dose: 1,000 mg Documented by: Hydrocodone Bitart/Acetaminophen (Hydrocodone/Apap 5/325mg Tablet) 1 - 2 tab PO Q4HP PRN PRN Reason: pain Last Admin: 10/05/21 05:00 Dose: 2 tab Documented by: Albuterol/Ipratropium (Ipratropium/Albuterol 3 Ml Ampul.Neb) 3 ml NEB Q4HRT PRN PRN Reason: Wheezing Amlodipine Besylate (Amlodipine 10 Mg Tablet) 10 mg PO QDAY [facility] Last Admin: 10/04/21 07:44 Dose: 10 mg Documented by: Buspirone HCl (Buspirone 15 Mg Tablet) 15 mg PO TID [facility] Last Admin: 10/04/21 21:20 Dose: 15 mg Documented by: Cyclobenzaprine HCl (Cyclobenzaprine 10 Mg Tablet) 10 mg PO TID [facility] Last Admin: 10/04/21 21:20 Dose: 10 mg Documented by: Dextrose (Dextrose 50% 50 Ml Vial) 0 ml IV UD PRN PRN Reason: Per Sliding Scale Diagnostic Test (Pha) (Accu-Chek 1 Each Strip) 1 each FS [facility] Last Admin: 10/04/21 21:28 Dose: 1 each Documented by: Docusate Sodium (Docusate Sodium 100 Mg Capsule) 100 mg PO BID [facility] Last Admin: 10/04/21 21:20 Dose: 100 mg Documented by: Duloxetine HCl (Duloxetine 30 Mg Capsule) 90 mg PO QDAY [facility] Last Admin: 10/04/21 07:43 Dose: 90 mg Documented by: Enoxaparin Sodium (Enoxaparin 40 Mg/0.4 Ml Syringe) 40 mg SQ DAILY [facility] Last Admin: 10/04/21 07:45 Dose: 40 mg Documented by: Glucose (Dextrose 31 Gm Oral.Susp) 15 gm PO PRN PRN PRN Reason: Hypoglycemia Hydralazine HCl (Hydralazine 20 Mg/Ml Vial) 10 mg IV Q4-6HP PRN PRN Reason: Hypertension Hydroxyzine HCl (Hydroxyzine 10 Mg Tablet) 10 mg PO TID PRN PRN Reason: Anxiety Insulin Human Lispro (Insulin Lispro 1 Unit/0.01 Ml Unit) 0 unit SQ [facility]; Protocol Last Admin: 10/04/21 21:29 Dose: 2 unit Documented by: Lidocaine (Lidocaine 5% Oint Tube 35gm) 1 dose TOPICAL QIDP PRN PRN Reason: Pain Methocarbamol (Methocarbamol 750 Mg Tablet) 500 mg PO Q6HP PRN PRN Reason: Muscle Spasm Last Admin: 10/04/21 12:50 Dose: 500 mg Documented by: Metoprolol Succinate (Metoprolol Succinate 50 Mg Tab.Xl.24h) 50 mg PO QDAY [facility] Last Admin: 10/04/21 07:43 Dose: 50 mg Documented by: Morphine Sulfate (Morphine 4 Mg/Ml Vial) 4 mg IV Q4HP PRN; Protocol PRN Reason: Per Pain Protocol Last Admin: 10/04/21 16:50 Dose: 4 mg Documented by: Ondansetron HCl (Ondansetron 4 Mg/2 Ml Vial) 4 mg IV Q6HP PRN PRN Reason: Nausea And Vomiting Alpha Lipoic Acid (600 Mg Capsule) 1 dose PO DAILY [facility] Last Admin: 10/04/21 08:42 Dose: Not Given Documented by: Pregabalin (Pregabalin 150 Mg Capsule) 150 mg PO Q8 [facility] Last Admin: 10/05/21 05:00 Dose: 150 mg Documented by: Senna (Sennosides 1 Tablet) 2 tab PO HS [facility] Last Admin: 10/04/21 21:20 Dose: 2 tab Documented by: Simvastatin (Simvastatin 10 Mg Tablet) 10 mg PO DAILY [facility] Last Admin: 10/04/21 07:43 Dose: 10 mg Documented by: Sodium Chloride (0.9 % Sodium Chloride 10 Ml Syringe) 10 ml IV Q8 [facility] Last Admin: 10/05/21 05:01 Dose: 10 ml Documented by: Zolpidem Tartrate (Zolpidem 5 Mg Tablet) 5 mg PO HSP PRN PRN Reason: Insomnia Last Admin: 10/03/21 23:27 Dose: 5 mg Documented by: A/P Assessment and plan (1) Intertrochanteric fracture of left femur: Assessment and plan: Assessment and plan: POD 2 s/p operative fixation of left peritroch fracture, exchange of screws of distal femoral plate -- toe touch weight bearing x6 weeks -----PT/OT -- oral pain medications, Hospitalist added morphine as pt felt oral not sufficient -- h/h decreaed yesterday with today's pending. ------dressing changed- no new drainage likely parvez h/h today but decrease from yesterday. Potentially transfusion will defer to Hospitalist but am ok if needed. Pt reports transfused 3 units after her knee surgery earlier this year. -- Prophy: lovenox, IS, mobilization, foot pumps -- Dispo: will need fdc given the weight bearing status.OK to d/c from ortho standpoint once stable --------- Did discussed with daughter treatment of the osteoporosis which can be started 2 weeks after fracture fixation. Status: Acute Time Spent With Patient Time: Total time spent is greater than 50% in coordination of care (as documented) at patient's floor/unit and/or counseling patient:
[2021-10-05 07:49] LABS: ALT/SGPT < 5 U/L (<40); AST/SGOT 10 U/L (<32); Albumin 3.4 gm/dL (3.2-5.2); Albumin/Globulin Ratio 1.3 (1.0-2.3); Alkaline Phosphatase 58 U/L (39-117); Bilirubin,Total 0.3 mg/dL (0.1-1.0); Blood Urea Nitrogen 12 mg/dL (8-23); Calcium 8.9 mg/dL (8.6-10.4); Carbon Dioxide 21 mmol/L (22-30); Chloride 106 mmol/L (96-108); Globulin 2.6 gm/dL (2.2-3.7); Glomerular Filtration Rate 95; Glucose 168 mg/dL (70-105)
[2021-10-05] MEDS: CYCLOBENZAPRINE 10 MG TABLET PO SCH (09:17)
[2021-10-05] MEDS: METOPROLOL SUCCINATE 50 MG TAB.XL.24H PO SCH (09:17)
[2021-10-05] MEDS: DOCUSATE SODIUM 100 MG CAPSULE PO SCH (09:17)
[2021-10-05] MEDS: ENOXAPARIN 40 MG/0.4 ML SYRINGE SQ SCH (09:17)
[2021-10-05] MEDS: busPIRone 15 MG TABLET PO SCH (09:17)
[2021-10-05] MEDS: SIMVASTATIN 10 MG TABLET PO SCH (09:17)
[2021-10-05] MEDS: DULoxetine 30 MG CAPSULE PO SCH (09:17)
[2021-10-05] MEDS: amLODIPine 10 MG TABLET PO SCH (09:17)
[2021-10-05] MEDS: INSULIN LISPRO 1 UNIT/0.01 ML UNIT SQ SCH ×2 (09:38→12:31)
--- NOTE | 2021-10-05 10:03 | Discharge Summary ---
Discharge Provider Provider IMPORTANT FOLLOW-UP INFORMATION FOR PCP: Patient information: Note initiated : 10/05/21 at 10:00 am Service Date, if different from initiated Date: [] Patient: Anna Marie Montoya 66 y/o F admitted on 10/02/21 for fall, left hip pain. Chief Complaint: [] Date of admission: 10/02/21 17:44 Discharge date: 10/05/21 Primary care physician: Mary Landa Attending physician on admission: Maksim Sheriff Consults: 10/02/21 Consult to Physician [CONS] Stat Comment: Consulting Provider: Maksim Sheriff Reason For Exam: Physician to Consult Consult to Physician [CONS] Stat Comment: Consulting Provider: Debo Paez Reason For Exam: Physician to Consult 10/02/21 18:26 Consult to Physician [CONS] Routine Comment: left hip fracture Consulting Provider: Debo Paez Reason For Exam: Physician to Consult Attending physician on discharge: Maksim Sheriff COURSE Hospital Course Hospital course: Interval history: Ms. 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 She fractured her left knee in May 2021, and she has been ambulating with a walker since. Earlier today when she was ambulating with a walker, she was tangled and lost her balance and had a mechanical fall and she landed on her left hip and she also hurt her head. She is currently complaining of 8.5 out of 10 left knee pain with radiations to her thigh, aching, constant. She is also complained of mild headaches. She denies any chest pain or shortness of breath or palpitations. No LOC. Left hip x-ray showing closed mildly displaced intertrochanteric fracture of the left hip. Labs pending. Dr. Paez ortho pedic surgeons already consulted who plan to do surgery tomorrow. 10/03: There was no major overnight event. Patient is currently complaining of 9 out of 10 sharp aching constant pain of her left thigh extending to her left knee. Pending surgery by orthopedic surgeon Dr. Paez later this morning. 10/04: Status post operative fixation of the left peritrochanteric fracture of her left hip by orthopedic surgeon Dr. Paez on 10/03. Patient tolerated the procedure well. Patient is currently complaining of moderate to severe pain of her left hip. She is also committing of muscle cramping and spasm of that same region. She woke with physical therapist earlier this morning. Was seen in occupations. Dilaudid stopped by Dr. Paez however I would start the patient's on IV morphine as needed for severe pain. Continue Flexeril as needed for muscle spasm. Continue physical therapy evaluations and treatments and will work on SNF placement. Toe-touch weightbearing x6 weeks. Continue Lovenox as DVT prophylaxis. Treatment for osteoporosis can be started 2 weeks after the surgery. 10/05: Which clinical stability, discharged to SNF. Follow-up appointment with Dr. Paez made for the patient. Prescription sent with the patient's. All questions were answered prior to patient being physically discharged. Discharge diagnosis: left hip fracture Time Spent with Patient Time attestation: Total time spent providing and/or coordinating discharge services: Time spent: Less than 30 minutes EXAM Constitutional Vitals: Temp Pulse Resp BP Pulse Ox 36.7 C 94 H 14 115/67 91 10/05/21 08:00 10/05/21 08:00 10/05/21 03:47 10/05/21 08:00 10/05/21 08:00 General appearance: cooperative and no acute distress Head Head exam: Present atraumatic and normocephalic Eye Eye exam: Present EOMI and PERRL ENT ENT exam: Present mucous membranes moist, normal exam and normal external ear exam Neck Neck exam: Present normal inspection; Absent lymphadenopathy, tenderness or thyromegaly Respiratory Respiratory exam: Absent accessory muscle use, respiratory distress or wheezes Cardiovascular Cardiovascular exam: Present normal rate and rhythm; Absent JVD GI/Abdominal GI/Abdominal exam: Present normal bowel sounds and soft; Absent organomegaly or tenderness Extremities Exam Extremities exam: Present normal capillary refill and tenderness; Absent full ROM or normal inspection Additional comments: Left lateral hip covered by surgical dressing Neurological Exam Neurological exam: Present alert, CN II-XII intact and oriented X3; Absent motor sensory deficit Psychiatric Psychiatric exam: Present normal affect and normal mood; Absent anxious or depressed Skin Skin exam: Present dry and intact Discharge Data Data Completed and Pending Labs on day of discharge: Labs from last 24 hours 10/05/21 10/05/21 05:19 05:18 WBC 8.3 RBC 3.16 L Hgb 7.7 L Hct 25.8 L MCV 81.6 MCH 24.4 L MCHC 29.8 L RDW 18.3 H Plt Count 171 MPV 10.9 H Neut % (Auto) 72.9 Lymph % (Auto) 16.6 [place] % (Auto) 9.5 Eos % (Auto) 0.6 Baso % (Auto) 0.4 Lymph # (Auto) 1.37 L [place] # (Auto) 0.78 Eos # (Auto) 0.05 Baso # (Auto) 0.03 Absolute Neutrophils 6.02 Sodium 136 Potassium 4.0 Chloride 106 Carbon Dioxide 21 L Anion Gap 9.0 BUN 12 Creatinine 0.6 GFR Calculation 95 Glucose 168 H Calcium 8.9 Total Bilirubin 0.3 AST 10 ALT < 5 Alkaline Phosphatase 58 Total Protein 6.0 Albumin 3.4 Globulin 2.6 Albumin/Globulin Ratio 1.3 Discharge Plan Patient/Caregiver Discharge Instructions Activity: non-weight bearing Diet: Regular Diet Activity Restrictions/Additional Instructions: -Toe touch weight bearing x6 weeks total on left lower extremity. ROM as tolerated -Dressing is dry dressing. OK to shower once there is no drainage. Replace dry dressing daily. No ointments/lotions to the area. No submerging the incision in a bath/hot tub etc -Lovenox for 35 days post op total -[place] for pain Prescriptions: New hydrocodone-acetaminophen 5-325 mg Tablet 1 - 2 tab PO Q4HP PRN (Reason: pain) Qty: 60 0RF acetaminophen 500 mg Tablet 1,000 mg PO Q8HP PRN (Reason: Pain) Qty: 90 0RF methocarbamol 750 mg Tablet 500 mg PO Q6HP PRN (Reason: Muscle Spasm) Qty: 20 0RF docusate sodium 100 mg Capsule 100 mg PO BID Qty: 60 0RF enoxaparin [Lovenox] 40 mg/0.4 mL Syringe 40 mg SQ DAILY Qty: 33 0RF Continued buspirone 7.5 mg Tablet 15 mg PO TID 0RF Rx Instructions: at noon duloxetine [Cymbalta] 30 mg Capsule,Delayed Release(Dr/Ec) 90 mg PO QDAY 0RF cyclobenzaprine 10 mg Tablet 10 mg PO TID 0RF trazodone 50 mg tablet 1 tab PO HS 0RF Jardiance 10 mg tablet 1 tab PO QDAY 0RF meloxicam 15 mg Tablet 15 mg PO QDAY PRN (Reason: pain) Qty: 1 0RF Rx Instructions: 1/2 to 1 tab as needed lidocaine 5 % Cream 1 applic TOPICAL QID PRN (Reason: Pain) 0RF aspirin [Obey Low Dose Aspirin] 81 mg Tablet,Delayed Release (Dr/Ec) 81 mg PO DAILY 0RF amlodipine 10 mg Tablet 10 mg PO QDAY 0RF lovastatin 20 mg Tablet 20 mg PO QDAY 0RF hydroxyzine HCl 10 mg Tablet 10 mg PO TID PRN (Reason: Anxiety) 0RF Rx Instructions: Take 1/2-1 tab as needed for anxiety alpha lipoic acid 600 mg Capsule 600 mg PO DAILY 0RF ondansetron HCl 4 mg Tablet 4 mg PO Q6H PRN (Reason: Nausea And Vomiting) 0RF pregabalin 150 mg Capsule 150 mg PO Q8 0RF naloxone [Narcan] 4 mg/actuation [place],Non-Aerosol 1 spray INTRANASAL Q2M PRN (Reason: Opioid Overdose) 0RF Rx Instructions: spray 1 dose into ONE nostril; alternate nostrils w each dose until help arrives metoprolol succinate 25 mg Capsule,Sprinkle,Er 24hr 50 mg PO QDAY 0RF Discontinued hydrocodone-acetaminophen 5-325 mg Tablet 1 tab PO Q6H PRN (Reason: Pain) 0RF acetaminophen 500 mg Tablet 1,000 mg PO Q8 PRN (Reason: Pain) 0RF Follow Up Plan Follow up with: Mary Landa, WASHER REPAIRMAN [Primary Care Provider] - Sukhjinder Cain PA-C [Physician Youth Worker] - 10/18/21 9:40 am Patient Disposition: Xfer SNF Prognosis: Fair Rehab Potential: Good I certify that the patient requires SNF services: Yes Overall status at discharge: patient is progressing back to baseline Discharge Orders: Discharge Order (Routine); Ordered 10/05/21 Ordered By: Maksim BRADY VTE Deep Vein Thrombosis/Pulmonary Embolism Present on Admission: No
== END 2021-10-05 13:20 | DRG 482 ==
LOC: ED 13:02 → MEDSUR 17:44
PROVIDERS: ADMIT Internal Medicine; ATTEND Internal Medicine

== ENCOUNTER 2022-01-03 15:50 | Inpatient (IN) ==
[2022-01-03] MEDS ORDERED: ONDANSETRON 4 MG/2 ML VIAL IV ONE (16:05)
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
[2022-01-03] MEDS: HYDROmorphone 0.5 MG/0.5 ML SYRINGE IV PRN ×2 (16:27→17:19)
--- NOTE | 2022-01-03 17:17 | XRay Report ---
CLINICAL INFORMATION: Trauma COMPARISON: None. FINDINGS: Moderately comminuted oblique fracture through the proximal femoral diaphysis appreciated. The distal fragment is displaced one shaft width medially. [place] fracture angulation is approximately 30 degrees laterally. Older left subtotal unified intertrochanteric fracture is transfixed by gamma nail. Both SI and hip joints are normal width and alignment without arthritic change. Soft tissues swelling over the fracture site. IMPRESSION: Oblique, displaced and angulated subtrochanteric fracture right hip. Interpreted and Authenticated by: Sarmad Lovell 01/03/22
--- NOTE | 2022-01-03 17:19 | XRay Report ---
CLINICAL INFORMATION: Trauma COMPARISON: 10/02/2021 TECHNIQUE: Portable FINDINGS: The heart size, mediastinum and pulmonary vessels are unremarkable. The lungs are clear. There are no effusions. The bones and soft tissues are within normal limits. IMPRESSION: Normal chest. Interpreted and Authenticated by: Sarmad Lovell 01/03/22
[2022-01-03 17:26] LABS: Basophils # (Auto) 0.03 K/mcL (0.00-0.30); Basophils % (Auto) 0.3 % (0.0-2.0); Eosinophils # (Auto) 0 K/mcL (0.00-0.70); Eosinophils % (Auto) 0 % (0.0-7.0); Hemoglobin 10.1 g/dL (11.2-15.7); Lymphocytes % (Auto) 8.2 % (15.5-49.0); Mean Cell Volume 82.3 fL (80.0-100.0); Mean Corpuscular HGB Conc 29.7 g/dL (31.0-36.0); Mean Platelet Volume 10.9 fL (7.4-10.4); Monocytes # (Auto) 0.35 K/mcL (0.10-0.90); Monocytes % (Auto) 3.6 % (1.0-12.0); Neutrophils % (Auto) 87.6 % (38.0-78.0); Platelet Count 262 K/mcL (140-440); RBC 4.13 M/mcL (3.59-5.38); Red Cell Distribution Width 16.4 % (11.5-14.5); WBC 9.7 K/mcL (4.5-11.0)
[2022-01-03 17:44] LABS: ALT/SGPT 7 U/L (<40); AST/SGOT 11 U/L (<32); Albumin 4.2 gm/dL (3.2-5.2); Albumin/Globulin Ratio 1.7 (1.0-2.3); Alkaline Phosphatase 77 U/L (39-117); Bilirubin,Total 0.2 mg/dL (0.1-1.0); Blood Urea Nitrogen 15 mg/dL (8-23); Carbon Dioxide 22 mmol/L (22-30); Chloride 104 mmol/L (96-108); Globulin 2.5 gm/dL (2.2-3.7); Glomerular Filtration Rate 77; Glucose 187 mg/dL (70-105)
[2022-01-03] MEDS ORDERED: MIDAZOLAM 2 MG/2 ML VIAL IV ONE (17:51)
[2022-01-03] MEDS ORDERED: ceFAZolin 2 GM in DEXTROSE 5% IN WATER 50 ML IV SCH (18:00)
[2022-01-03] MEDS ORDERED: ACETAMINOPHEN 500 MG TABLET PO PRN (18:02)
[2022-01-03] MEDS ORDERED: hydrOXYzine 10 MG TABLET PO PRN (18:02)
[2022-01-03] MEDS ORDERED: [UNRECOGNIZED DRUG - REMARK] INTRANASAL PRN (18:02)
[2022-01-03] MEDS ORDERED: LACTATED RINGERS 1,000 ML IV SCH (18:15)
--- NOTE | 2022-01-03 19:09 | Consultation ---
DATE OF CONSULTATION: 01/03/2022 HISTORY OF PRESENT ILLNESS: Very pleasant, elderly female, 66 years old with a history of multiple fractures has fallen again and broken her right femur, had immediate pain, swelling, and deformity at home, was unable to ambulate, was brought in and diagnosed with right proximal femur fracture. Unable to bear weight. She has just broke her left hip not long ago and just was able to get home and independently living when she fell again. Dr Paez fixed her left hip. She is otherwise fairly unhealthy and takes chronic pain pills and has chronic pain. She has anxiety disorders as well, also takes meloxicam and heparin. She last ate at 02:00 and for this reason, we cannot do surgery today. She will have a block to try to block pain by anesthesia. She is fairly uncomfortable. I have reviewed the x-rays. MEDICATIONS: Quite extensive. See admitting form. They include Norvasc, Cymbalta, Jardiance for her diabetes along with Humalog, which she uses to balance her sugar. Lovastatin 20 mg p.o. every day, meloxicam 15 mg, Robaxin, trazodone at night to sleep, Flexeril, and she does Accu-Cheks. SOCIAL HISTORY: She lives alone. She does not use an assistive device to get around all the time. Occasionally, a walker and occasionally a cane. She denies chest pain or shortness of breath. ALLERGIES: CODEINE CAUSES NAUSEA; METFORMIN, DIARRHEA; AND NITROFURANTOIN OR MACROBID CAUSES HYPERTENSION. OTHER HEALTH PROBLEMS: Include left femur fracture, left hip fracture, and more recently, right femur fracture. Confusion, diabetes, distal femur fracture, tachycardia, anemia, essential hypertension, and bronchitis. She has had urinary tract infection, type 2 diabetes, and significant hypertension. PHYSICAL EXAMINATION: General: Very pleasant 66-year-old female who gives a good history. Alert and oriented x 3, with an irregular heart rate. Vital Signs: Height 5 feet 5 inches, weight 210 pounds. Her blood pressure was 114/97, pulse 98, respiratory rate is 18, temperature 99.1, and O2 sat 94% without oxygen. Lungs: Clear to auscultation. Extremities: Right is shortened and externally rotated. Moves her foot, but very painfully. She has good capillary refill, but pitting edema present. IMAGING: X-rays of the right femur demonstrate a femoral neck fracture or subtrochanteric fracture of the right femur, severe osteopenia or osteoporosis. The treatment will be IM nailing of the right femur fracture with a gamma nail. She will be able to be weightbearing as tolerated. The risk of heart attack, strokes, pulmonary emboli, arrhythmias, and other heart conditions can occur as well as heart attacks. We have stopped her heparin. We will schedule her for surgery tomorrow. She last ate at 02:00. She will be made n.p.o. at midnight, IV fluids have been started, pain pills ordered. She understands the risks and benefits and agreed to proceed. RBH:mub Job ID: [id number] Doc ID: [id number] Rafael Betts MD
[2022-01-03 19:40] LABS: INR 0.9 (0.9-1.1); Prothrombin Time 12.9 sec (11.9-14.5)
[2022-01-03] MEDS: HYDROmorphone 1 MG/ML SYRINGE IV PRN ×2 (19:42→23:13)
[2022-01-03] MEDS ORDERED: HYDROmorphone 1 MG/ML SYRINGE ONE (19:50)
[2022-01-03] MEDS ORDERED: METHOCARBAMOL 500 MG TABLET PO PRN (19:52)
[2022-01-03] MEDS ORDERED: MELOXICAM 7.5 MG TABLET PO PRN (19:57)
[2022-01-03] MEDS ORDERED: ONDANSETRON 4 MG ODT TABLET SL PRN (19:59)
[2022-01-03] MEDS ORDERED: DEXTROSE 50% 50 ML VIAL IV PRN (20:48)
[2022-01-03] MEDS ORDERED: DEXTROSE 31 GM ORAL.SUSP PO PRN (20:48)
[2022-01-03] MEDS: INSULIN LISPRO 1 UNIT/0.01 ML UNIT SQ SCH (20:54)
[2022-01-03] MEDS: DOCUSATE SODIUM 100 MG CAPSULE PO SCH (20:56)
[2022-01-03] MEDS ORDERED: INSULIN LISPRO SUB-Q SCH (21:00)
[2022-01-03] MEDS ORDERED: [UNRECOGNIZED DRUG - OTHER] SUB-Q SCH (21:00)
[2022-01-03] MEDS: CYCLOBENZAPRINE 10 MG TABLET PO SCH (21:03)
[2022-01-03] MEDS: SIMVASTATIN 10 MG TABLET PO SCH (21:03)
[2022-01-03] MEDS: busPIRone 15 MG TABLET PO SCH (21:03)
[2022-01-03] MEDS: traZODone HCL 50 MG TABLET PO SCH (21:03)
[2022-01-03] MEDS: PREGABALIN 150 MG CAPSULE PO SCH (21:05)
[2022-01-03] MEDS: ACETAMINOPHEN 325 MG TABLET PO PRN (21:13)
--- NOTE | 2022-01-03 21:26 | EKG ---
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
[2022-01-03 23:05] LABS: Appearance,Urine Clear (Clear); Bilirubin,Urine Negative (Negative); Color,Urine Yellow; Culture Indicated,Urine No; Glucose,Urine (UA) >=1000 mg/dL mg/dL (Negative); Ketones,Urine Negative (Negative); Leukocyte Esterase,Urine Trace /uL (Negative); Nitrate,Urine Negative (Negative); PH,Urine 6.5 (5.0-9.0); Protein,Urine Negative (Negative); Urine Blood Negative ery/mcL (Negative); Urine RBC 1 /hpf (0-3); Urine Squamous Epithelial Cell 0 /hpf (0-4); Urine WBC 2 /hpf (0-4); Urobilinogen,Urine Normal
[2022-01-04] MEDS: PREGABALIN 150 MG CAPSULE PO SCH ×3 (05:29→22:13)
[2022-01-04] MEDS: INSULIN LISPRO 1 UNIT/0.01 ML UNIT SQ SCH ×4 (07:36→22:13)
[2022-01-04] MEDS: HYDROmorphone 1 MG/ML SYRINGE IV PRN (07:48)
[2022-01-04] MEDS: DOCUSATE SODIUM 100 MG CAPSULE PO SCH ×2 (07:49→22:12)
[2022-01-04] MEDS: busPIRone 15 MG TABLET PO SCH ×3 (07:49→22:13)
[2022-01-04] MEDS: MUPIROCIN OINT 2% 22GM NARES SCH ×2 (07:50→22:13)
[2022-01-04] MEDS: DULoxetine 30 MG CAPSULE PO SCH (07:51)
[2022-01-04] MEDS: CYCLOBENZAPRINE 10 MG TABLET PO SCH ×3 (07:51→22:13)
[2022-01-04] MEDS: oxyCODONE/APAP 5/325MG TABLET PO PRN (10:43)
[2022-01-04] MEDS: amLODIPine 10 MG TABLET PO SCH (12:07)
[2022-01-04] MEDS: METOPROLOL SUCCINATE 50 MG TAB.XL.24H PO SCH (12:09)
[2022-01-04] MEDS ORDERED: IPRATROPIUM/ALBUTEROL 3 ML AMPUL.NEB NEB PRN ×2 (13:00→17:15)
[2022-01-04] MEDS ORDERED: SCOPOLAMINE 1 PATCH PATCH TOPICAL PRN (13:00)
[2022-01-04] MEDS: ACETAMINOPHEN 325 MG TABLET PO PRN (14:29)
[2022-01-04] MEDS ORDERED: SUCCINYLCHOLINE 20 MG/ML ML IV ONE (16:13)
[2022-01-04] MEDS ORDERED: DEXAMETHASONE 10 MG/ML VIAL ONE (16:13)
[2022-01-04] MEDS ORDERED: morphine 10 MG/ML VIAL ONE (16:13)
[2022-01-04] MEDS ORDERED: MAGNESIUM SULFATE 2 GM/50 ML BAG IV ONE (16:13)
[2022-01-04] MEDS ORDERED: fentaNYL 100 MCG/2 ML VIAL IV ONE (16:13)
[2022-01-04] MEDS ORDERED: GLYCOPYRROLATE 0.2 MG/ML VIAL IV ONE (16:13)
[2022-01-04] MEDS ORDERED: METOPROLOL TARTRATE 5 MG/5 ML VIAL IV ONE (16:13)
[2022-01-04] MEDS ORDERED: PROPOFOL 200 MG/20 ML VIAL IV ONE (16:13)
[2022-01-04] MEDS ORDERED: KETAMINE 50 MG/ML Syringe (ANEST) IV ONE (16:13)
[2022-01-04] MEDS ORDERED: TRANEXAMIC ACID 1,000 MG/10 ML VIAL ONE (16:13)
[2022-01-04] MEDS ORDERED: LIDOCAINE HCL/PF 100 MG/5 ML SYRINGE IV ONE (16:13)
[2022-01-04] MEDS ORDERED: MIDAZOLAM 2 MG/2 ML VIAL ONE (16:13)
[2022-01-04] MEDS ORDERED: ceFAZolin 2 GM in DEXTROSE 5% IN WATER 50 ML IV SCH (16:15)
[2022-01-04] MEDS ORDERED: PROMETHAZINE 25 MG/ML VIAL IV PRN (17:15)
[2022-01-04] MEDS ORDERED: LACTATED RINGERS 1,000 ML IV SCH (17:15)
[2022-01-04] MEDS ORDERED: ONDANSETRON 4 MG/2 ML VIAL IV PRN ×2 (17:15→17:38)
[2022-01-04] MEDS ORDERED: METHOCARBAMOL 1,000 MG/10 ML VIAL IV PRN (17:15)
[2022-01-04] MEDS ORDERED: NALOXONE HCL 0.4 MG/ML VIAL IV PRN (17:15)
[2022-01-04] MEDS ORDERED: METOPROLOL TARTRATE 5 MG/5 ML VIAL IV PRN (17:15)
[2022-01-04] MEDS ORDERED: ACETAMINOPHEN 1,000 MG/100 ML BAG IV ONE (17:15)
[2022-01-04] MEDS ORDERED: METOCLOPRAMIDE 10 MG/2 ML VIAL IV PRN (17:15)
[2022-01-04] MEDS ORDERED: LABETALOL 5 MG/ML ML IV PRN (17:15)
[2022-01-04] MEDS ORDERED: LACTATED RINGERS 250 ML IV PRN (17:15)
[2022-01-04] MEDS ORDERED: KETOROLAC 30 MG/ML VIAL IV PRN (17:15)
[2022-01-04] MEDS ORDERED: HYDROmorphone 0.5 MG/0.5 ML SYRINGE IV PRN (17:15)
[2022-01-04] MEDS ORDERED: MEPERIDINE 25 MG/ML VIAL IV PRN (17:15)
[2022-01-04] MEDS ORDERED: TRANEXAMIC ACID 1,000 MG/10 ML VIAL IV ONE (17:38)
[2022-01-04] MEDS ORDERED: HYDROmorphone 1 MG/ML SYRINGE IV PRN (17:38)
--- NOTE | 2022-01-04 17:54 | Brief Operative Note ---
Brief Operative Note Date of procedure: 01/04/22 Pre-op diagnosis: Right subtrochanteric femur fx Post-op diagnosis: same Procedure: Right subtrochanteric fx IM nailing Grafts/Implants: Yes Anesthesia: GETA Findings: above Complications: none Surgeon: Rafael Betts Estimated blood loss (cc): 200 Specimens Removed/Pathology: none sent Condition: stable Disposition: PACU
[2022-01-04] MEDS: fentaNYL 100 MCG/2 ML VIAL IV PRN ×2 (18:33→18:35)
[2022-01-04] MEDS: LACTATED RINGERS 1,000 ML IV SCH (18:38)
--- NOTE | 2022-01-04 18:41 | XRay Report ---
CLINICAL INFORMATION: ORIF subtrochanteric right hip fracture COMPARISON: None. FINDINGS: Sacroiliac and hip joints are normal in width and alignment without arthritic change. Subtrochanteric right hip fracture has been reduced to near-anatomic alignment and transfixed by long gamma nail and screw. A lesser trochanteric fragment remains displaced 1 cm superiorly. Older right intertrochanteric fracture is subtotally unified as previously seen is in near-anatomic alignment. IMPRESSION: ORIF acute subtrochanteric fracture right hip in near-anatomic alignment Interpreted and Authenticated by: Sarmad Lovell 01/04/22
[2022-01-04] MEDS: HYDROcodone/APAP 10/325MG TABLET PO PRN (20:57)
[2022-01-04] MEDS: traZODone HCL 50 MG TABLET PO SCH (22:13)
[2022-01-04] MEDS: BACLOFEN 10 MG TABLET PO SCH (22:13)
[2022-01-04] MEDS: INSULIN GLARGINE, HUMAN 1 UNIT/0.01 ML SQ SCH (22:13)
[2022-01-04] MEDS: SIMVASTATIN 10 MG TABLET PO SCH (22:13)
[2022-01-04] MEDS: 0.9 % SODIUM CHLORIDE 10 ML SYRINGE IV SCH (22:14)
--- NOTE | 2022-01-05 02:10 | XRay Report ---
CLINICAL INFORMATION: Proximal femoral diaphyseal fracture COMPARISON: None FINDINGS: Multiple digital images from the OR show reduction of the proximal femoral diaphyseal fracture to near-anatomic alignment. Fracture is now transfixed by a long gamma nail. Total fluoroscopy time one minute. IMPRESSION: ORIF proximal femoral diaphyseal fracture in near-anatomic alignment. Interpreted and Authenticated by: Sarmad Lovell 01/05/22
[2022-01-05] MEDS: PREGABALIN 150 MG CAPSULE PO SCH ×3 (05:17→21:40)
[2022-01-05] MEDS: 0.9 % SODIUM CHLORIDE 10 ML SYRINGE IV SCH ×3 (05:18→21:41)
[2022-01-05] MEDS: HYDROcodone/APAP 10/325MG TABLET PO PRN ×3 (05:25→13:38)
[2022-01-05] MEDS: METOPROLOL SUCCINATE 50 MG TAB.XL.24H PO SCH (08:16)
[2022-01-05] MEDS: amLODIPine 10 MG TABLET PO SCH (08:16)
[2022-01-05] MEDS: INSULIN LISPRO 1 UNIT/0.01 ML UNIT SQ SCH ×4 (08:30→21:41)
[2022-01-05] MEDS: INSULIN GLARGINE, HUMAN 1 UNIT/0.01 ML SQ SCH ×2 (08:30→21:40)
[2022-01-05] MEDS: busPIRone 15 MG TABLET PO SCH ×3 (08:31→21:40)
[2022-01-05] MEDS: CYCLOBENZAPRINE 10 MG TABLET PO SCH ×3 (08:31→21:40)
[2022-01-05] MEDS: BACLOFEN 10 MG TABLET PO SCH ×2 (08:31→21:40)
[2022-01-05] MEDS: DULoxetine 30 MG CAPSULE PO SCH (08:31)
[2022-01-05] MEDS: DOCUSATE SODIUM 100 MG CAPSULE PO SCH ×2 (08:32→21:40)
[2022-01-05] MEDS: MUPIROCIN OINT 2% 22GM NARES SCH ×2 (15:53→21:45)
[2022-01-05] MEDS: LACTATED RINGERS 1,000 ML IV SCH (19:39)
[2022-01-05] MEDS: oxyCODONE/APAP 5/325MG TABLET PO PRN (19:47)
[2022-01-05] MEDS: traZODone HCL 50 MG TABLET PO SCH (21:40)
[2022-01-05] MEDS: SIMVASTATIN 10 MG TABLET PO SCH (21:40)
[2022-01-06] MEDS: LACTATED RINGERS 1,000 ML IV SCH ×2 (02:13→21:57)
[2022-01-06] MEDS: HYDROcodone/APAP 10/325MG TABLET PO PRN ×5 (02:13→21:57)
[2022-01-06] MEDS: PREGABALIN 150 MG CAPSULE PO SCH ×3 (05:20→20:27)
[2022-01-06] MEDS: 0.9 % SODIUM CHLORIDE 10 ML SYRINGE IV SCH ×3 (05:20→20:28)
[2022-01-06] MEDS: INSULIN LISPRO 1 UNIT/0.01 ML UNIT SQ SCH ×4 (07:32→20:15)
--- NOTE | 2022-01-06 08:35 | Discharge Summary ---
Discharge Provider Provider IMPORTANT FOLLOW-UP INFORMATION FOR PCP: Patient information: Note initiated : 01/06/22 at 8:32 am Service Date, if different from initiated Date: [] Patient: Anna Marie Montoya 66 y/o F admitted on 01/03/22 for fall, right hip pain, unable to bear weight. Chief Complaint: [] Date of admission: 01/03/22 19:02 Discharge date: 01/07/22 Primary care physician: Mary Landa Consults: 01/03/22 Consult to Physician [CONS] Stat Comment: Consulting Provider: Rafael Betts Reason For Exam: Physician to Consult COURSE Hospital Course Hospital course: poor progress Discharge diagnosis: right intertrochanteric fx Time Spent with Patient Time attestation: Total time spent providing and/or coordinating discharge services: Time spent: Greater than 30 minutes Physical Examination Exam Incision healing: Yes Incision draining: No Incision red: No Incision swollen: Yes Incision inflamed: No Clean and dry: Yes Weight bearing status: full DC Instructions-General Patient Instructions Dressing Care: May shower in 2 days Discharge Plan Patient/Caregiver Discharge Instructions Activity: ambulate only with your walker Diet: Regular Diet Instructions: Diabetes Mellitus Type 2 in Adults, 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) Activity Restrictions/Additional Instructions: weight bearing as tolerated Prescriptions: New hydrocodone-acetaminophen 10-325 mg Tablet 1 - 2 tab PO Q4HP PRN (Reason: Per Pain Protocol) Qty: 60 0RF No Action duloxetine [Cymbalta] 30 mg Capsule,Delayed Release(Dr/Ec) 90 mg PO QDAY cyclobenzaprine 10 mg Tablet 10 mg PO TID Jardiance 10 mg tablet 1 tab PO QDAY meloxicam 15 mg Tablet 15 mg PO QDAY PRN (Reason: pain) Qty: 1 0RF Rx Instructions: 1/2 to 1 tab as needed amlodipine 10 mg Tablet 10 mg PO QDAY lovastatin 20 mg Tablet 20 mg PO HS hydroxyzine HCl 10 mg Tablet 5 - 10 mg PO TID PRN (Reason: Anxiety) Rx Instructions: Take 1/2-1 tab as needed for anxiety ondansetron HCl 4 mg Tablet 4 mg PO Q6H PRN (Reason: Nausea And Vomiting) metoprolol succinate 25 mg Capsule,Sprinkle,Er 24hr 50 mg PO QDAY acetaminophen 500 mg Tablet 1,000 mg PO Q8HP PRN (Reason: Pain) Qty: 90 0RF trazodone 50 mg tablet 1 tab PO HS Qty: 10 0RF buspirone 7.5 mg Tablet 15 mg PO TID Qty: 20 0RF Rx Instructions: at noon pregabalin 150 mg Capsule 150 mg PO Q8 Qty: 20 0RF Humalog U-100 Insulin 100 unit/mL Cartridge 1 unit SUBCUT ACHS Qty: 10 0RF Protocol: Insulin Sliding Scale, Low Condition: HUMALOG/NOVALOG SC SLIDING Dose/Route: SCALE Condition: FSBS < 70 Dose/Route: Give 4 Oz juice, or 15gm oral Instruction: Glucose, or 25ml D50W IV if Dose/Route: unable to take PO. Recheck in Instruction: 15 min and repeat if FSBS < 70 Condition: FSBS 71-140 Dose/Route: NO COVERAGE Condition: FSBS 141-170 Dose/Route: 1 UNITS Condition: FSBS 171-200 Dose/Route: 2 UNITS Condition: FSBS 201-250 Dose/Route: 3 UNITS Condition: FSBS 251-300 Dose/Route: 4 UNITS Condition: FSBS 301-350 Dose/Route: 6 UNITS Condition: FSBS 351-400 Dose/Route: 8 UNITS Condition: FSBS > 400 Dose/Route: 10 UNITS; REPEAT Q2H X2 Instruction: CONTINUE FOLLOWING SLIDING Condition: SCALE; IF STILL > 400; CALL Dose/Route: PHYSICIAN insulin glargine [Lantus U-100 Insulin] 100 unit/mL Solution 5 unit SUBCUT BID baclofen 10 mg Tablet 10 mg PO BID Follow Up Plan Follow up with: Mary Landa ARNP [Primary Care Provider] - Patient Disposition: Xfer SNF Prognosis: Fair Rehab Potential: Good I certify that the patient requires SNF services: Yes Overall status at discharge: patient is not back to baseline Discharge Orders: Discharge Order (Routine); Ordered 01/06/22 Ordered By: Rafael Betts Pending Pending Pending: Diet Consistent Carbohydrate Diet Start SatJan 04 2113 Acetaminophen (Acetaminophen 325 Mg Tablet) 650 mg PO Q6HP PRN; Protocol PRN Reason: Per Pain Protocol/Fever > 101 Last Admin: 01/04/22 14:29 Dose: 650 mg Documented By: Admin: 01/03/22 21:13 Dose: 650 mg Documented By: CHANTELL Hydrocodone Bitart/Acetaminophen (Hydrocodone/Apap 10/325mg Tablet) 1 - 2 tab PO Q4HP PRN; Protocol PRN Reason: Per Pain Protocol Last Admin: 01/06/22 02:13 Dose: 2 tab Documented By: Admin: 01/05/22 13:38 Dose: 1 tab Documented By: Admin: 01/05/22 09:51 Dose: 1 tab Documented By: Admin: 01/05/22 05:25 Dose: 2 tab Documented By: Admin: 01/04/22 20:57 Dose: 1 tab Documented By: YG Amlodipine Besylate (Amlodipine 10 Mg Tablet) 10 mg PO QDAY [facility] Last Admin: 01/05/22 08:16 Dose: Not Given Documented By: Admin: 01/04/22 12:07 Dose: Not Given Documented By: CRISPIN Baclofen (Baclofen 10 Mg Tablet) 10 mg PO BID [facility] Last Admin: 01/05/22 21:40 Dose: 10 mg Documented By: Admin: 01/05/22 08:31 Dose: 10 mg Documented By: Admin: 01/04/22 22:13 Dose: 10 mg Documented By: YG Buspirone HCl (Buspirone 15 Mg Tablet) 15 mg PO TID [facility] Last Admin: 01/05/22 21:40 Dose: 15 mg Documented By: Admin: 01/05/22 13:38 Dose: 15 mg Documented By: Admin: 01/05/22 08:31 Dose: 15 mg Documented By: Admin: 01/04/22 22:13 Dose: 15 mg Documented By: Admin: 01/04/22 16:44 Dose: Not Given Documented By: Admin: 01/04/22 07:49 Dose: 15 mg Documented By: Admin: 01/03/22 21:03 Dose: 15 mg Documented By: CHANTELL Cyclobenzaprine HCl (Cyclobenzaprine 10 Mg Tablet) 10 mg PO TID [facility] Last Admin: 01/05/22 21:40 Dose: 10 mg Documented By: Admin: 01/05/22 13:38 Dose: 10 mg Documented By: Admin: 01/05/22 08:31 Dose: 10 mg Documented By: Admin: 01/04/22 22:13 Dose: 10 mg Documented By: Admin: 01/04/22 16:44 Dose: Not Given Documented By: Admin: 01/04/22 07:51 Dose: 10 mg Documented By: Admin: 01/03/22 21:03 Dose: 10 mg Documented By: CHANTELL Diagnostic Test (Pha) (Accu-Chek 1 Each Strip) 1 each FS ACHS [facility] Last Admin: 01/05/22 19:52 Dose: 1 each Documented By: Admin: 01/05/22 18:07 Dose: Not Given Documented By: Admin: 01/05/22 12:07 Dose: 1 each Documented By: Admin: 01/05/22 08:30 Dose: 1 each Documented By: Admin: 01/04/22 22:14 Dose: 1 each Documented By: Admin: 01/04/22 18:03 Dose: 1 each Documented By: Admin: 01/04/22 12:10 Dose: Not Given Documented By: Admin: 01/04/22 07:51 Dose: 1 each Documented By: Admin: 01/03/22 20:54 Dose: 1 each Documented By: CHANTELL Docusate Sodium (Docusate Sodium 100 Mg Capsule) 100 mg PO BID [facility] Admin: 01/05/22 21:40 Dose: 100 mg Documented By: Admin: 01/05/22 08:32 Dose: 100 mg Documented By: Admin: 01/04/22 22:12 Dose: 100 mg Documented By: Admin: 01/04/22 07:49 Dose: 100 mg Documented By: Admin: 01/03/22 20:56 Dose: Not Given Documented By: CHANTELL Duloxetine HCl (Duloxetine 30 Mg Capsule) 90 mg PO QDAY [facility] Last Admin: 01/05/22 08:31 Dose: 90 mg Documented By: Admin: 01/04/22 07:51 Dose: 90 mg Documented By: CRISPIN Hydromorphone HCl (Hydromorphone 1 Mg/Ml Syringe) 0 mg IV Q2HP PRN; Protocol PRN Reason: Per Pain Protocol Last Admin: 01/04/22 07:48 Dose: 0.5 mg Documented By: Admin: 01/03/22 23:13 Dose: 1 mg Documented By: Admin: 01/03/22 19:42 Dose: 1 mg Documented By: CHANTELL Hydromorphone HCl (Hydromorphone 1 Mg/Ml Syringe) 0.5 - 2 mg IV Q2HP PRN; Protocol PRN Reason: Per Pain Protocol Last Admin: 01/05/22 00:06 Dose: 1 mg Documented By: YG Lactated Ringer's (Lactated Ringers) 1,000 mls @ 50 mls/hr IV .Q20H [facility] Last Admin: 01/06/22 02:13 Dose: 50 mls/hr Documented By: Admin: 01/05/22 19:39 Dose: Not Given Documented By: Infusion: 01/05/22 15:53 Dose: 0 mls/hr Documented By: Admin: 01/04/22 18:38 Dose: 50 mls/hr Documented By: GIA Insulin Glargine (Insulin Glargine, Human 1 Unit/0.01 Ml) 5 unit SQ BID [facility] Last Admin: 01/05/22 21:40 Dose: 5 units Documented By: Admin: 01/05/22 08:30 Dose: 5 units Documented By: Admin: 01/04/22 22:13 Dose: 5 units Documented By: YG Insulin Human Lispro (Insulin Lispro 1 Unit/0.01 Ml Unit) 0 unit SQ ACHS [facility]; Protocol Last Admin: 01/06/22 07:32 Dose: Not Given Documented By: Admin: 01/05/22 21:41 Dose: Not Given Documented By: Admin: 01/05/22 17:26 Dose: Not Given Documented By: Admin: 01/05/22 12:07 Dose: 2 units Documented By: Admin: 01/05/22 08:30 Dose: 1 units Documented By: Admin: 01/04/22 22:13 Dose: 1 units Documented By: Admin: 01/04/22 19:29 Dose: Not Given Documented By: Admin: 01/04/22 12:09 Dose: Not Given Documented By: Admin: 01/04/22 07:36 Dose: Not Given Documented By: Admin: 01/03/22 20:54 Dose: Not Given Documented By: CHANTELL Metoprolol Succinate (Metoprolol Succinate 50 Mg Tab.Xl.24h) 50 mg PO DAILY [facility] Last Admin: 01/05/22 08:16 Dose: Not Given Documented By: Admin: 01/04/22 12:09 Dose: Not Given Documented By: CRISPIN Mupirocin (Mupirocin Oint 2% 22gm) 1 dose NARES BID [facility] Last Admin: 01/05/22 21:45 Dose: 1 dose Documented By: Admin: 01/05/22 15:53 Dose: Not Given Documented By: Admin: 01/04/22 22:13 Dose: 1 dose Documented By: Admin: 01/04/22 07:50 Dose: 1 dose Documented By: CRISPIN Oxycodone/Acetaminophen (Oxycodone/Apap 5/325mg Tablet) 1 tab PO Q4HP PRN; Protocol PRN Reason: Per Pain Protocol Last Admin: 01/05/22 19:47 Dose: 1 tab Documented By: Admin: 01/04/22 10:43 Dose: 1 tab Documented By: CRISPIN Alpha Lipoic Acid (600 Mg Capsule) 1 dose PO DAILY [facility] Last Admin: 01/05/22 08:32 Dose: Not Given Documented By: Admin: 01/04/22 07:52 Dose: Not Given Documented By: CRISPIN Empagliflozin [ Jardiance] 10 Mg Tablet 1 dose PO QDAY [facility] Last Admin: 01/05/22 08:32 Dose: Not Given Documented By: Admin: 01/04/22 07:52 Dose: Not Given Documented By: CRISPIN Pregabalin (Pregabalin 150 Mg Capsule) 150 mg PO Q8 [facility] Last Admin: 01/06/22 05:20 Dose: 150 mg Documented By: Admin: 01/05/22 21:40 Dose: 150 mg Documented By: Admin: 01/05/22 13:38 Dose: 150 mg Documented By: Admin: 01/05/22 05:17 Dose: 150 mg Documented By: Admin: 01/04/22 22:13 Dose: 150 mg Documented By: Admin: 01/04/22 16:44 Dose: Not Given Documented By: Admin: 01/04/22 05:29 Dose: 150 mg Documented By: Admin: 01/03/22 21:05 Dose: 150 mg Documented By: CHANTELL Simvastatin (Simvastatin 10 Mg Tablet) 10 mg PO [facility] Last Admin: 01/05/22 21:40 Dose: 10 mg Documented By: Admin: 01/04/22 22:13 Dose: 10 mg Documented By: Admin: 01/03/22 21:03 Dose: 10 mg Documented By: CHANTELL Sodium Chloride (0.9 % Sodium Chloride 10 Ml Syringe) 10 ml IV Q8 [facility] Admin: 01/06/22 05:20 Dose: Not Given Documented By: Admin: 01/05/22 21:41 Dose: Not Given Documented By: Admin: 01/05/22 13:39 Dose: Not Given Documented By: Admin: 01/05/22 05:18 Dose: Not Given Documented By: Admin: 01/04/22 22:14 Dose: Not Given Documented By: YG Trazodone HCl (Trazodone Hcl 50 Mg Tablet) 50 mg PO [facility] Admin: 01/05/22 21:40 Dose: 50 mg Documented By: Admin: 01/04/22 22:13 Dose: 50 mg Documented By: Admin: 01/03/22 21:03 Dose: 50 mg Documented By: CHANTELL Shift Summary 01/06/22 03:32 Shift Summary by Breana Aguilar Primary Diagnosis: Fall Registration Status: IP Date of Surgery (if applicable): 01/04/22. Right Subtrochanteric fx IM nailing Pertinent Medical Dx/Issue(s): DDM 2, Confusion, Tachycardia, UTI Med management (antibiotics, diuretics, BP): Pain meds and IV fluids Skin/Wound Care: Q2 turn, ATR sheet Vital Signs with Trends: VSS, 1L NC O2, liter flow/saturations: 1L NC Pain management (acute vs. chronic): X1 Percocet, X1 [place] Neuro/Mental Status: A&OX4 Urinary Elimination Device: [place] catheter Urinary output greater than 30mL/hr? yes Date of last BM: 01/04/22 Lines/Tubes: 20g R hand Activity: Pt working with PT Discharge Plan (needs, disposition, etc): TBD Initialized on 01/06/22 03:32 - END OF NOTE
[2022-01-06] MEDS: CYCLOBENZAPRINE 10 MG TABLET PO SCH ×3 (08:44→20:27)
[2022-01-06] MEDS: busPIRone 15 MG TABLET PO SCH ×3 (08:45→20:27)
[2022-01-06] MEDS: MUPIROCIN OINT 2% 22GM NARES SCH ×2 (08:45→20:29)
[2022-01-06] MEDS: DOCUSATE SODIUM 100 MG CAPSULE PO SCH ×2 (08:46→20:27)
[2022-01-06] MEDS: METOPROLOL SUCCINATE 50 MG TAB.XL.24H PO SCH (08:46)
[2022-01-06] MEDS: INSULIN GLARGINE, HUMAN 1 UNIT/0.01 ML SQ SCH ×2 (08:46→20:28)
[2022-01-06] MEDS: DULoxetine 30 MG CAPSULE PO SCH (08:46)
[2022-01-06] MEDS: BACLOFEN 10 MG TABLET PO SCH ×2 (08:46→20:27)
[2022-01-06] MEDS: amLODIPine 10 MG TABLET PO SCH (08:47)
[2022-01-06] MEDS: oxyCODONE/APAP 5/325MG TABLET PO PRN (19:47)
[2022-01-06] MEDS: SIMVASTATIN 10 MG TABLET PO SCH (20:27)
[2022-01-06] MEDS: traZODone HCL 50 MG TABLET PO SCH (20:27)
[2022-01-07] MEDS: HYDROcodone/APAP 10/325MG TABLET PO PRN ×4 (02:17→20:59)
[2022-01-07] MEDS: PREGABALIN 150 MG CAPSULE PO SCH ×3 (04:43→21:01)
[2022-01-07] MEDS: oxyCODONE/APAP 5/325MG TABLET PO PRN ×2 (04:43→23:25)
[2022-01-07] MEDS: 0.9 % SODIUM CHLORIDE 10 ML SYRINGE IV SCH ×3 (04:56→21:49)
[2022-01-07] MEDS: LACTATED RINGERS 1,000 ML IV SCH ×2 (06:13→23:25)
[2022-01-07] MEDS: INSULIN LISPRO 1 UNIT/0.01 ML UNIT SQ SCH ×4 (08:58→21:09)
[2022-01-07] MEDS: MUPIROCIN OINT 2% 22GM NARES SCH ×2 (08:59→21:15)
[2022-01-07] MEDS: BACLOFEN 10 MG TABLET PO SCH ×2 (08:59→21:01)
[2022-01-07] MEDS: busPIRone 15 MG TABLET PO SCH ×3 (08:59→21:01)
[2022-01-07] MEDS: METOPROLOL SUCCINATE 50 MG TAB.XL.24H PO SCH (08:59)
[2022-01-07] MEDS: DULoxetine 30 MG CAPSULE PO SCH (08:59)
[2022-01-07] MEDS: DOCUSATE SODIUM 100 MG CAPSULE PO SCH ×2 (08:59→21:01)
[2022-01-07] MEDS: amLODIPine 10 MG TABLET PO SCH (09:00)
[2022-01-07] MEDS: CYCLOBENZAPRINE 10 MG TABLET PO SCH ×3 (09:01→20:59)
[2022-01-07] MEDS: INSULIN GLARGINE, HUMAN 1 UNIT/0.01 ML SQ SCH ×2 (09:01→21:15)
[2022-01-07] MEDS: traZODone HCL 50 MG TABLET PO SCH (21:01)
[2022-01-07] MEDS: SIMVASTATIN 10 MG TABLET PO SCH (21:01)
[2022-01-08] MEDS: LACTATED RINGERS 1,000 ML IV SCH (03:29)
[2022-01-08] MEDS: HYDROcodone/APAP 10/325MG TABLET PO PRN ×2 (03:42→14:15)
[2022-01-08] MEDS: 0.9 % SODIUM CHLORIDE 10 ML SYRINGE IV SCH ×2 (05:30→14:16)
[2022-01-08] MEDS: PREGABALIN 150 MG CAPSULE PO SCH ×2 (05:30→14:16)
[2022-01-08] MEDS: INSULIN LISPRO 1 UNIT/0.01 ML UNIT SQ SCH ×2 (07:20→11:39)
--- NOTE | 2022-01-08 07:26 | Operative Note ---
DATE OF OPERATION: 01/03/2022 DATE OF PROCEDURE: 01/03/2022 PREOPERATIVE DIAGNOSIS: Right subtrochanteric femur fracture. POSTOPERATIVE DIAGNOSIS: Right subtrochanteric femur fracture. PROCEDURE: Right subtrochanteric femur fracture open reduction and IM nailing with a gamma nail. SURGEON: Rafael Betts M.D. ROPE LAYING MACHINE OPERATOR: Hospital staff. ESTIMATED BLOOD LOSS: 200 mL. BLOOD PRODUCTS GIVEN: None. IMPLANTS: Size 13 gamma nail with 40 cm in length, a dynamic compression screw measuring 85 mm, which was locked into place, placed in the inferior 50% and posterior 50% of the femoral head, the fracture and distally a locking screw measuring 55 mm with a dynamic compression locking screw. COMPLICATIONS: None. DISPOSITION: PACU. DESCRIPTION OF PROCEDURE: The patient was brought to the operating room, put to sleep with general LMA anesthesia. Once asleep, the patient had the right hip sterilely prepped in the usual sterile fashion. Ioban being placed over the skin. A closed reduction maneuver was placed prior to the surgery. After being sterilely prepped and draped, we then made a separate incision for an open reduction maneuver that reduced the fracture. Once this was reduced, we then made a separate incision proximal to the greater trochanter, slightly posterior, and 3 cm proximal in line with the superior lag spine posterior margin of the greater trochanter. We went through the fascia with a 10 blade, identified the greater trochanter and placed a guide pin. This guide pin was then placed intramedullary and then reamed proximally. Once done, we then placed a ball-tip guidewire, which was then reamed up to the size of 14.5. We placed a 13 mm titanium devin that was 40 cm in length. We then placed this in the inferior 50% area of the calcar region, placing a central pin slightly posteriorly in the femoral head. This was then passed and then a pin placed. We then measured the length at 85. We placed an 85 mm compression screw, which was then locked into place. We were able to then align the fracture. We then impacted the fracture site. Once this was impacted, we then locked distally in the dynamic most distal screw hole with a 4.5 screw. This was drilled distally to allow for impaction of the fracture site 55 mm in length. We confirmed the position and placement within the nail. This was locked distally. We irrigated the wound, closed the wound with 2-0 Vicryl and verona. Sterile bandage was applied. The patient tolerated this well. No complications. RBH:oz Job ID: [id number] Doc ID: [id number] Rafael Betts MD
[2022-01-08] MEDS: DULoxetine 30 MG CAPSULE PO SCH (08:34)
[2022-01-08] MEDS: METOPROLOL SUCCINATE 50 MG TAB.XL.24H PO SCH (08:34)
[2022-01-08] MEDS: CYCLOBENZAPRINE 10 MG TABLET PO SCH ×2 (08:34→14:17)
[2022-01-08] MEDS: amLODIPine 10 MG TABLET PO SCH (08:35)
[2022-01-08] MEDS: DOCUSATE SODIUM 100 MG CAPSULE PO SCH (08:35)
[2022-01-08] MEDS: busPIRone 15 MG TABLET PO SCH ×2 (08:35→14:16)
[2022-01-08] MEDS: MUPIROCIN OINT 2% 22GM NARES SCH (08:35)
[2022-01-08] MEDS: INSULIN GLARGINE, HUMAN 1 UNIT/0.01 ML SQ SCH (08:35)
[2022-01-08] MEDS: BACLOFEN 10 MG TABLET PO SCH (08:35)
[2022-01-08] MEDS: oxyCODONE/APAP 5/325MG TABLET PO PRN (08:37)
== END 2022-01-08 15:30 | DRG 482 ==
LOC: ED 15:50 → MEDSUR 19:02
PROVIDERS: ADMIT Orthopaedic Surgery; ATTEND Orthopaedic Surgery

== ENCOUNTER 2024-04-21 14:23 | Observation (INO) ==
[2024-04-21] MEDS: oxyCODONE IR 5 MG TABLET PO ONE (14:33)
[2024-04-21] MEDS: morphine 4 MG/ML VIAL IV ONE (17:23)
[2024-04-21 17:47] LABS: Basophils # (Auto) 0.02 K/mcL (0.00-0.30); Basophils % (Auto) 0.2 % (0.0-2.0); Eosinophils # (Auto) 0.06 K/mcL (0.00-0.70); Eosinophils % (Auto) 0.6 % (0.0-7.0); Hematocrit 49.6 % (34.1-44.9); Hemoglobin 15.7 g/dL (11.2-15.7); Mean Cell Volume 93.4 fL (80.0-100.0); Mean Corpuscular HGB Conc 31.7 g/dL (31.0-36.0); Mean Platelet Volume 11.5 fL (8.8-12.5); Monocytes # (Auto) 0.48 K/mcL (0.10-0.90); Monocytes % (Auto) 4.6 % (1.0-12.0); Neutrophils % (Auto) 76.5 % (38.0-78.0); Platelet Count 209 K/mcL (140-440); RBC 5.31 M/mcL (3.59-5.38); Red Cell Distribution Width 12.4 % (11.5-14.5); WBC 10.5 K/mcL (4.5-11.0)
[2024-04-21 17:57] LABS: Blood Urea Nitrogen 21 mg/dL (8-23); Calcium 9.7 mg/dL (8.6-10.4); Carbon Dioxide 25 mmol/L (22-30); Chloride 102 mmol/L (96-108); Glomerular Filtration Rate 89; Glucose 145 mg/dL (70-105); Potassium 4.4 mmol/L (3.3-5.1); Sodium 139 mmol/L (133-145)
[2024-04-21] MEDS ORDERED: DEXTROSE 50% 50 ML VIAL IV PRN (20:31)
[2024-04-21] MEDS ORDERED: DEXTROSE 31 GM ORAL.SUSP PO PRN (20:31)
[2024-04-21] MEDS ORDERED: ACETAMINOPHEN 325 MG TABLET PO PRN (20:31)
[2024-04-21] MEDS ORDERED: IPRATROPIUM/ALBUTEROL 3 ML AMPUL.NEB NEB PRN (20:31)
[2024-04-21] MEDS ORDERED: hydrALAZINE 20 MG/ML VIAL IV PRN (20:31)
[2024-04-21] MEDS ORDERED: ONDANSETRON 4 MG/2 ML VIAL IV PRN (20:31)
[2024-04-21] MEDS ORDERED: hydrOXYzine 10 MG TABLET PO PRN (20:54)
[2024-04-21] MEDS ORDERED: ACETAMINOPHEN 500 MG TABLET PO PRN (20:54)
[2024-04-21] MEDS: PREGABALIN 150 MG CAPSULE PO SCH (22:12)
[2024-04-21] MEDS: ASCORBIC ACID 500 MG TABLET PO SCH (22:12)
[2024-04-21] MEDS: SENNOSIDES 1 TABLET PO SCH (22:12)
[2024-04-21] MEDS: DOCUSATE SODIUM 100 MG CAPSULE PO SCH (22:12)
[2024-04-21] MEDS: traZODone HCL 50 MG TABLET PO SCH (22:12)
[2024-04-21] MEDS: BACLOFEN 10 MG TABLET PO SCH (22:12)
[2024-04-21] MEDS: 0.9 % SODIUM CHLORIDE 10 ML SYRINGE IV SCH (22:13)
[2024-04-21] MEDS: HYDROmorphone 0.5 MG/0.5 ML SYRINGE IV PRN (22:13)
[2024-04-21] MEDS: MAGNESIUM OXIDE 400 MG TABLET PO SCH (22:13)
[2024-04-21] MEDS: INSULIN LISPRO 1 UNIT/0.01 ML UNIT SQ SCH (22:14)
[2024-04-21] MEDS ORDERED: ALENDRONATE SODIUM 70 MG TABLET PO ONE (23:45)
[2024-04-22] MEDS: ALENDRONATE 35 MG PO SCH (00:38)
[2024-04-22] MEDS: KETOROLAC 15 MG/ML VIAL IV PRN (05:11)
[2024-04-22 07:17] LABS: Estimated Average Glucose(eAG) 203 mg/dL; Hemoglobin A1C 8.7 % Hgb (4.0-6.0)
[2024-04-22] MEDS ORDERED: ALENDRONATE SODIUM 70 MG TABLET PO SCH (07:45)
[2024-04-22] MEDS: CYCLOBENZAPRINE (PP) 10 MG TABLET PO SCH (07:45)
[2024-04-22] MEDS: METOPROLOL SUCCINATE 50 MG TAB.XL.24H PO SCH (08:08)
[2024-04-22] MEDS: amLODIPine 10 MG TABLET PO SCH (08:08)
[2024-04-22] MEDS: oxyCODONE IR 5 MG TABLET PO PRN (08:14)
[2024-04-22] MEDS ORDERED: busPIRone 15 MG TABLET PO PRN (09:00)
[2024-04-22] MEDS: ATORVASTATIN 10 MG TABLET PO SCH (21:23)
[2024-04-23 12:34] VITALS: TEMP 97.7; O2SAT 93
== END 2024-04-23 14:07 ==
LOC: ED 14:23 → MEDSUR 14:23
PROVIDERS: ADMIT Internal Medicine; ATTEND Internal Medicine

== ENCOUNTER 2025-03-16 09:49 | Inpatient (IN) ==
[2025-03-16] MEDS ORDERED: IOPAMIDOL 100 ML BOTTLE IV ONE (09:50)
[2025-03-16 10:56] LABS: Basophils # (Auto) 0.05 K/mcL (0.00-0.30); Basophils % (Auto) 0.4 % (0.0-2.0); Eosinophils # (Auto) 0.30 K/mcL (0.00-0.70); Eosinophils % (Auto) 2.4 % (0.0-7.0); Hematocrit 34.4 % (34.1-44.9); Hemoglobin 10.0 g/dL (11.2-15.7); Lymphocytes # (Auto) 1.08 K/mcL (1.50-4.80); Lymphocytes % (Auto) 8.6 % (15.5-49.0); Mean Corpuscular HGB Conc 29.1 g/dL (31.0-36.0); Monocytes # (Auto) 0.72 K/mcL (0.10-0.90); Monocytes % (Auto) 5.8 % (1.0-12.0); Neutrophils % (Auto) 82.5 % (38.0-78.0); Platelet Count 534 K/mcL (140-440); RBC 4.24 M/mcL (3.59-5.38); WBC 12.5 K/mcL (4.5-11.0)
[2025-03-16 11:24] LABS: Anion Gap 13.0 (8.0-16.0); Blood Urea Nitrogen 17 mg/dL (8-23); Calcium 9.2 mg/dL (8.6-10.4); Carbon Dioxide 22 mmol/L (22-30); Chloride 102 mmol/L (96-108); Glucose 165 mg/dL (70-105); Potassium 4.1 mmol/L (3.3-5.1); Sodium 137 mmol/L (133-145)
[2025-03-16] MEDS: cefTRIAXone 1 GM VIAL IV ONE (11:30)
[2025-03-16 11:53] LABS: INR 1.2 (0.9-1.1); Prothrombin Time 16.2 sec (11.9-14.5)
[2025-03-16] MEDS: AZITHROMYCIN 500 MG in DEXTROSE 5% IN WATER 250 ML IV ONE (12:11)
[2025-03-16 12:41] LABS: Barbiturate Screen,Urine None detected; Benzodiazepines Screen,Urine None detected; Fentanyl, Urine Screen None Detected; Opiate Screen,Urine None detected; Oxycodone, Urine Screen Suspect Positive; Phencyclidine Screen,Urine None detected
[2025-03-16 14:27] LABS: Bilirubin,Urine NEGATIVE (Negative); Color,Urine LT. YELLOW; Glucose,Urine (UA) >=1000 mg/dL (Negative); Ketones,Urine NEGATIVE (Negative); Leukocyte Esterase,Urine NEGATIVE /uL (Negative); PH,Urine 6.0 (5.0-9.0); Protein,Urine NEGATIVE (Negative); Specific Gravity,Urine 1.010 (1.000-1.035); Urobilinogen,Urine 0.2 mg/dL
[2025-03-16] MEDS ORDERED: VANCOMYCIN PER PHARMACY IV SCH (18:00)
[2025-03-16] MEDS ORDERED: SENNOSIDES 1 TABLET PO PRN (20:53)
[2025-03-16] MEDS ORDERED: POLYETHYLENE GLYCOL 3350 17 GM PACKET PO PRN (20:53)
[2025-03-16] MEDS ORDERED: LACTULOSE 20 GM/30 ML ORAL.SOL PO PRN (20:53)
[2025-03-16] MEDS ORDERED: ONDANSETRON 4 MG/2 ML VIAL IV PRN (20:53)
[2025-03-16] MEDS ORDERED: 0.9 % SODIUM CHLORIDE 10 ML SYRINGE IV SCH (21:00)
[2025-03-16] MEDS: MEROPENEM 1 GM in 0.9 % SODIUM CHLORIDE 50 ML IV SCH (22:21)
[2025-03-16] MEDS: LACTATED RINGERS 1,000 ML IV SCH (22:27)
[2025-03-16] MEDS: 0.9 % SODIUM CHLORIDE 10 ML SYRINGE IV SCH (22:27)
[2025-03-16] MEDS: HEPARIN 5,000 UNIT/ML VIAL SQ SCH (22:27)
[2025-03-16] MEDS: MELATONIN 3 MG TABLET PO PRN (22:28)
[2025-03-16] MEDS: VANCOMYCIN 1,500 MG in 0.9 % SODIUM CHLORIDE 500 ML IV SCH (23:15)
[2025-03-17 05:58] LABS: Basophils # (Auto) 0.02 K/mcL (0.00-0.30); Basophils % (Auto) 0.2 % (0.0-2.0); Eosinophils # (Auto) 0 K/mcL (0.00-0.70); Eosinophils % (Auto) 0 % (0.0-7.0); Hematocrit 36.3 % (34.1-44.9); Hemoglobin 10.5 g/dL (11.2-15.7); Lymphocytes # (Auto) 0.71 K/mcL (1.50-4.80); Lymphocytes % (Auto) 7.0 % (15.5-49.0); Mean Corpuscular HGB Conc 28.9 g/dL (31.0-36.0); Monocytes # (Auto) 0.04 K/mcL (0.10-0.90); Monocytes % (Auto) 0.4 % (1.0-12.0); Neutrophils % (Auto) 92.1 % (38.0-78.0); Platelet Count 566 K/mcL (140-440); RBC 4.46 M/mcL (3.59-5.38); WBC 10.1 K/mcL (4.5-11.0)
[2025-03-17 06:20] LABS: C-Reactive Protein 26.50 mg/dL (0.03-0.80); Phosphorous 5.3 mg/dL (2.5-4.5)
[2025-03-17 06:50] LABS: ALT/SGPT 12 U/L (<40); AST/SGOT 13 U/L (<32); Albumin 3.2 gm/dL (3.2-5.2); Albumin/Globulin Ratio 0.9 (1.0-2.3); Alkaline Phosphatase 75 U/L (39-117); Anion Gap 16.0 (8.0-16.0); Bilirubin,Total 0.3 mg/dL (0.1-1.0); Blood Urea Nitrogen 22 mg/dL (8-23); Calcium 9.3 mg/dL (8.6-10.4); Carbon Dioxide 19 mmol/L (22-30); Chloride 104 mmol/L (96-108); Globulin 3.5 gm/dL (2.2-3.7); Glucose 176 mg/dL (70-105); Potassium 4.3 mmol/L (3.3-5.1); Sodium 139 mmol/L (133-145)
[2025-03-17] MEDS: MIRABEGRON 25 MG TAB.ER.24H PO SCH (08:33)
[2025-03-17] MEDS: PREGABALIN 100 MG CAPSULE PO SCH (08:34)
[2025-03-17] MEDS: METOPROLOL SUCCINATE 50 MG TAB.XL.24H PO SCH (08:34)
[2025-03-17] MEDS: PANTOPRAZOLE 40 MG TABLET PO SCH (08:34)
[2025-03-17] MEDS: METHOCARBAMOL 750 MG TABLET PO SCH (08:34)
[2025-03-17] MEDS: ACETAMINOPHEN 325 MG TABLET PO PRN (14:57)
[2025-03-17] MEDS ORDERED: DEXTROSE 31 GM ORAL.SUSP PO PRN (19:04)
[2025-03-17] MEDS ORDERED: DEXTROSE 50% 50 ML VIAL IV PRN (19:04)
[2025-03-17] MEDS: INSULIN LISPRO 1 UNIT/0.01 ML UNIT SQ SCH (21:19)
[2025-03-17] MEDS: LUBIPROSTONE 8 MCG PO SCH (21:20)
[2025-03-18] MEDS ORDERED: 0.9 % SODIUM CHLORIDE 10 ML SYRINGE IV PRN (05:16)
[2025-03-18 06:41] LABS: Basophils # (Auto) 0.02 K/mcL (0.00-0.30); Basophils % (Auto) 0.1 % (0.0-2.0); Eosinophils # (Auto) 0 K/mcL (0.00-0.70); Eosinophils % (Auto) 0 % (0.0-7.0); Hematocrit 34.9 % (34.1-44.9); Hemoglobin 10.2 g/dL (11.2-15.7); Lymphocytes # (Auto) 1.16 K/mcL (1.50-4.80); Lymphocytes % (Auto) 7.1 % (15.5-49.0); Mean Corpuscular HGB Conc 29.2 g/dL (31.0-36.0); Monocytes # (Auto) 0.58 K/mcL (0.10-0.90); Monocytes % (Auto) 3.6 % (1.0-12.0); Neutrophils % (Auto) 88.7 % (38.0-78.0); Platelet Count 711 K/mcL (140-440); RBC 4.32 M/mcL (3.59-5.38); WBC 16.3 K/mcL (4.5-11.0)
[2025-03-18 06:50] LABS: Phosphorous 3.5 mg/dL (2.5-4.5)
[2025-03-18 06:53] LABS: ALT/SGPT 14 U/L (<40); AST/SGOT 11 U/L (<32); Albumin 3.2 gm/dL (3.2-5.2); Albumin/Globulin Ratio 1.0 (1.0-2.3); Alkaline Phosphatase 67 U/L (39-117); Anion Gap 10.0 (8.0-16.0); Bilirubin,Total < 0.2 mg/dL (0.1-1.0); Blood Urea Nitrogen 24 mg/dL (8-23); C-Reactive Protein 11.70 mg/dL (0.03-0.80); Calcium 9.2 mg/dL (8.6-10.4); Carbon Dioxide 23 mmol/L (22-30); Chloride 105 mmol/L (96-108); Globulin 3.1 gm/dL (2.2-3.7); Glucose 188 mg/dL (70-105); Potassium 4.4 mmol/L (3.3-5.1); Sodium 138 mmol/L (133-145)
[2025-03-18] MEDS: HEPARIN 10 UNITS/ML 5ML FLUSH IV SCH ×2 (08:17→08:18)
[2025-03-18] MEDS: 0.9 % SODIUM CHLORIDE 10 ML SYRINGE IV SCH (08:19)
[2025-03-18] MEDS: ATORVASTATIN 10 MG TABLET PO SCH (22:58)
[2025-03-19 06:00] LABS: Basophils # (Auto) 0 K/mcL (0.00-0.30); Basophils % (Auto) 0 % (0.0-2.0); Eosinophils # (Auto) 0 K/mcL (0.00-0.70); Eosinophils % (Auto) 0 % (0.0-7.0); Hematocrit 33.7 % (34.1-44.9); Hemoglobin 10.0 g/dL (11.2-15.7); Lymphocytes # (Auto) 0.80 K/mcL (1.50-4.80); Lymphocytes % (Auto) 7.8 % (15.5-49.0); Mean Corpuscular HGB Conc 29.7 g/dL (31.0-36.0); Monocytes # (Auto) 0.32 K/mcL (0.10-0.90); Monocytes % (Auto) 3.1 % (1.0-12.0); Neutrophils % (Auto) 88.8 % (38.0-78.0); Platelet Count 585 K/mcL (140-440); RBC 4.19 M/mcL (3.59-5.38); WBC 10.3 K/mcL (4.5-11.0)
[2025-03-19 06:23] LABS: Vancomycin,Random 10.8 ug/mL
[2025-03-19 06:24] LABS: ALT/SGPT 13 U/L (<40); AST/SGOT 11 U/L (<32); Albumin 3.1 gm/dL (3.2-5.2); Albumin/Globulin Ratio 1.1 (1.0-2.3); Alkaline Phosphatase 62 U/L (39-117); Anion Gap 7.0 (8.0-16.0); Bilirubin,Total < 0.2 mg/dL (0.1-1.0); Blood Urea Nitrogen 22 mg/dL (8-23); C-Reactive Protein 5.47 mg/dL (0.03-0.80); Calcium 9.2 mg/dL (8.6-10.4); Carbon Dioxide 26 mmol/L (22-30); Chloride 104 mmol/L (96-108); Globulin 2.9 gm/dL (2.2-3.7); Glucose 200 mg/dL (70-105); Potassium 4.7 mmol/L (3.3-5.1); Sodium 137 mmol/L (133-145)
[2025-03-19] MEDS: VANCOMYCIN 1,000 MG in 0.9 % SODIUM CHLORIDE 250 ML IV SCH (09:06)
[2025-03-19] MEDS: FLU VACC TS2025-26(65YR UP)/PF 180 MCG/0.5 ML SYRINGE IM ONE (15:23)
[2025-03-20 06:15] LABS: Basophils # (Auto) 0.01 K/mcL (0.00-0.30); Basophils % (Auto) 0.1 % (0.0-2.0); Eosinophils # (Auto) 0.03 K/mcL (0.00-0.70); Eosinophils % (Auto) 0.4 % (0.0-7.0); Hematocrit 34.3 % (34.1-44.9); Hemoglobin 9.9 g/dL (11.2-15.7); Lymphocytes # (Auto) 1.71 K/mcL (1.50-4.80); Lymphocytes % (Auto) 22.1 % (15.5-49.0); Mean Corpuscular HGB Conc 28.9 g/dL (31.0-36.0); Monocytes # (Auto) 0.73 K/mcL (0.10-0.90); Monocytes % (Auto) 9.4 % (1.0-12.0); Neutrophils % (Auto) 67.7 % (38.0-78.0); Platelet Count 527 K/mcL (140-440); RBC 4.25 M/mcL (3.59-5.38); WBC 7.8 K/mcL (4.5-11.0)
[2025-03-20 06:26] LABS: C-Reactive Protein 2.79 mg/dL (0.03-0.80)
[2025-03-20 06:34] LABS: ALT/SGPT 14 U/L (<40); AST/SGOT 11 U/L (<32); Albumin 3.1 gm/dL (3.2-5.2); Albumin/Globulin Ratio 1.2 (1.0-2.3); Alkaline Phosphatase 58 U/L (39-117); Anion Gap 8.0 (8.0-16.0); Bilirubin,Total < 0.2 mg/dL (0.1-1.0); Blood Urea Nitrogen 21 mg/dL (8-23); Calcium 9.0 mg/dL (8.6-10.4); Carbon Dioxide 28 mmol/L (22-30); Chloride 101 mmol/L (96-108); Globulin 2.5 gm/dL (2.2-3.7); Glucose 153 mg/dL (70-105); Potassium 4.0 mmol/L (3.3-5.1); Sodium 137 mmol/L (133-145)
[2025-03-20] MEDS: IPRATROPIUM/ALBUTEROL 3 ML AMPUL.NEB NEB PRN (18:55)
[2025-03-20] MEDS: CETIRIZINE 10 MG TABLET PO ONE (21:57)
[2025-03-20] MEDS: FLUTICASONE PROPIONATE SPRAY.NAS NS ONE (21:57)
[2025-03-21 06:52] LABS: Basophils # (Auto) 0.01 K/mcL (0.00-0.30); Basophils % (Auto) 0.1 % (0.0-2.0); Eosinophils # (Auto) 0.15 K/mcL (0.00-0.70); Eosinophils % (Auto) 1.9 % (0.0-7.0); Hematocrit 35.2 % (34.1-44.9); Hemoglobin 10.3 g/dL (11.2-15.7); Lymphocytes # (Auto) 1.99 K/mcL (1.50-4.80); Lymphocytes % (Auto) 25.5 % (15.5-49.0); Mean Corpuscular HGB Conc 29.3 g/dL (31.0-36.0); Monocytes # (Auto) 0.65 K/mcL (0.10-0.90); Monocytes % (Auto) 8.3 % (1.0-12.0); Neutrophils % (Auto) 63.8 % (38.0-78.0); Platelet Count 519 K/mcL (140-440); RBC 4.34 M/mcL (3.59-5.38); WBC 7.8 K/mcL (4.5-11.0)
[2025-03-21 06:55] LABS: Phosphorous 2.8 mg/dL (2.5-4.5)
[2025-03-21 06:55] LABS: ALT/SGPT 13 U/L (<40); AST/SGOT 9 U/L (<32); Albumin 3.1 gm/dL (3.2-5.2); Albumin/Globulin Ratio 1.3 (1.0-2.3); Alkaline Phosphatase 58 U/L (39-117); Anion Gap 7.0 (8.0-16.0); Bilirubin,Total < 0.2 mg/dL (0.1-1.0); Blood Urea Nitrogen 21 mg/dL (8-23); C-Reactive Protein 1.64 mg/dL (0.03-0.80); Calcium 8.9 mg/dL (8.6-10.4); Carbon Dioxide 29 mmol/L (22-30); Chloride 101 mmol/L (96-108); Globulin 2.4 gm/dL (2.2-3.7); Glucose 146 mg/dL (70-105); Potassium 3.9 mmol/L (3.3-5.1); Sodium 137 mmol/L (133-145)
[2025-03-21] MEDS: CETIRIZINE 10 MG TABLET PO SCH (08:48)
[2025-03-21] MEDS: FLUTICASONE PROPIONATE SPRAY.NAS NS SCH (08:50)
[2025-03-21 09:52] LABS: Vancomycin,Random 17.3 ug/mL
[2025-03-21] MEDS: FUROSEMIDE 40 MG/4 ML VIAL IV ONE (14:41)
[2025-03-22 07:05] LABS: Basophils # (Auto) 0.02 K/mcL (0.00-0.30); Basophils % (Auto) 0.3 % (0.0-2.0); Eosinophils # (Auto) 0.16 K/mcL (0.00-0.70); Eosinophils % (Auto) 2.1 % (0.0-7.0); Hematocrit 35.0 % (34.1-44.9); Hemoglobin 10.2 g/dL (11.2-15.7); Lymphocytes # (Auto) 2.22 K/mcL (1.50-4.80); Lymphocytes % (Auto) 28.9 % (15.5-49.0); Mean Corpuscular HGB Conc 29.1 g/dL (31.0-36.0); Monocytes # (Auto) 0.52 K/mcL (0.10-0.90); Monocytes % (Auto) 6.8 % (1.0-12.0); Neutrophils % (Auto) 61.2 % (38.0-78.0); Platelet Count 460 K/mcL (140-440); RBC 4.32 M/mcL (3.59-5.38); WBC 7.7 K/mcL (4.5-11.0)
[2025-03-22 07:17] LABS: Anion Gap 9.0 (8.0-16.0); Blood Urea Nitrogen 24 mg/dL (8-23); Calcium 8.7 mg/dL (8.6-10.4); Carbon Dioxide 28 mmol/L (22-30); Chloride 101 mmol/L (96-108); Glucose 244 mg/dL (70-105); Potassium 3.6 mmol/L (3.3-5.1); Sodium 138 mmol/L (133-145)
[2025-03-22] MEDS: VANCOMYCIN 1,500 MG in 0.9 % SODIUM CHLORIDE 500 ML IV SCH (11:37)
[2025-03-22 11:44] VITALS: TEMP 97.2; O2SAT 97
== END 2025-03-22 15:12 | disposition home or self-care (01) | DRG 196 ==
LOC: ED 09:49 → ICU 20:44 → MEDSUR 03-17 22:11
PROVIDERS: ADMIT Student in an Organized Health Care Education/Training Program; ATTEND Student in an Organized Health Care Education/Training Program